=== PATIENT | female | born 1965 | race Caucasian/White ===

== ENCOUNTER 2020-01-09 10:05 | Outpatient (CLI) | payer OTHER, SELFPAY ==
[2020-01-09 17:03] LABS: Hematocrit 39.7 % (37.0-47.0); Hemoglobin 12.7 g/dL (12.0-15.0); Mean Corpuscular Hemoglobin 32.4 pg (26-34); Mean Corpuscular Volume 101.3 fl (80-100); Mean Platelet Volume 9.9 fl (7.4-10.4); Platelet Count Result 255 k/mm3 (150-375); Red Blood Count 3.92 M/mm3 (4.2-5.4); Red Cell Distribution Width 12.9 % (11.5-14.5); White Blood Count 3.5 K/mm3 (4.5-10.0)
[2020-01-09 17:20] LABS: Albumin Level 4.3 g/dL (3.5-5.1)
[2020-01-09 17:27] LABS: Alanine Aminotransferase 21 U/L (4-35); Alkaline Phosphatase 105 U/L (38-126); Aspartate Amino Transferase 28 U/L (14-36); Bilirubin,Total 0.2 mg/dL (0.2-1.3); Blood Urea Nitrogen 12 mg/dL (7-17); Carbon Dioxide 30 mmol/L (22-30); Chloride 103 mmol/L (98-107); Cholesterol 205 mg/dL (0-200); Estimated Glomerular Filt Rate > 60; Glucose 86 mg/dL (65-105); HDL Direct 92 mg/dL; Potassium 4.2 mmol/L (3.4-5.0); Rheumatoid Factor < 12.0 IU/ML (<12); Sodium 140 mmol/L (137-145); Triglycerides 57 mg/dL (<150); Uric Acid 4.9 mg/dL (2.5-7.5)
[2020-01-09 17:30] LABS: Vitamin D 25 Hydroxy 40.2 ng/mL
[2020-01-09 17:34] LABS: LDL Cholesterol Direct 97 mg/dL
[2020-01-09 17:40] LABS: Erythrocyte Sedimentation Rate 11 mm/hr (0-20)
== END 2020-01-09 10:06 | disposition home or self-care (01) ==
PROVIDERS: PCP Internal Medicine; Visit Provider Physician Assistant
DX: M25.50 Pain in unspecified joint (principal)
CPT/HCPCS: 36415; 80053; 80061; 82306; 84443; 84550; 85027; 85652; 86430

== ENCOUNTER 2020-06-11 10:28 | Outpatient (CLI) | payer OTHER, SELFPAY ==
--- NOTE | ~2020-06-11 | MM_ITS ---
EXAMINATION: MM screening [facility] BI w jan HISTORY: Screening mammogram TECHNIQUE: Craniocaudal and mediolateral oblique 3-D tomosynthesis images were obtained and synthetic 2-D images were generated. CAD analysis was submitted and interpreted. COMPARISON: 02/21/2015, 01/18/2013, 10/27/2010 BREAST PARENCHYMAL COMPOSITION: There are scattered areas of fibroglandular density. FINDINGS: RIGHT BREAST: An asymmetry is present in the posterior third of the upper breast best appreciated 5.5 cm from the nipple on the mediolateral oblique view. LEFT BREAST: There is no evidence of suspicious mass, calcification, or architectural distortion to s uggest malignancy. There has been no significant interval change. IMPRESSION: 1. Right breast asymmetry. 2. Additional mammographic views and possible breast ultrasound are recommended. BI-RADS Category 0: Incomplete: Needs additional imaging evaluation. Reviewed, dictated and finalized at location A. IMPRESSION: 1. Right breast asymmetry. 2. Additional mammographic views and possible breast ultrasound are recommended . BI-RADS Category 0: Incomplete: Needs additional imaging evaluation.
--- NOTE | ~2020-06-11 | DEXA_ITS ---
Bone Density Report Name: Debbi Crouch Age: 54 Sex: Female Ethnicity: White Date of : 1965 Indication: osteopenia; monitoring treatment; parental hip fracture; seizure disorder; asthma or emphysema; hysterectomy;postmenopausal Referring Provider: John Villatoro Study: Bone densitometry was performed. Exam Date: June 11, 2020 Accession number: [id number] Bone Density: Region BMD T-score Z-score Classification AP Spine (L1-L4) 0.718 -3.0 -1.8 Osteoporosis Femoral Neck (Left) 0.575 -2.5 -1.3 Osteoporosis Total Hip (Left) 0.773 -1.4 -0.6 Osteopenia Total Hip Bilateral Avg 0.773 -1.4 -0.6 Osteopenia Femoral Neck (Right) 0.600 -2.2 -1.1 Osteopenia Total Hip (Right) 0.772 -1.4 -0.6 Osteopenia World Health Organization criteria for BMD impression classify patients as: Normal (T-score at or above -1.0), Osteopenia (T-score between -1.0 and -2.5), or Osteoporosis (T-score at or below -2.5). 10-year Fracture Risk: FRAX not reported because: Some T-score for Spine Total or Hip Total or Femoral Neck at or below -2.5 Treated for osteoporosis Previous Exams: Region Exam Age BMD T-score BMD Change BMD Change Date g/cm2 vs Baseline vs Previous AP Spine(L1-L4) 06/11/2020 54 0.718 -3.0 -0.258(-26.4%) -0.109(-13.2%) 02/21/2015 49 0.827 -2.0 -0.149(-15.3%) -0.007(-0.9%)# 01/18/2013 47 0.835 -1.9 -0.142(-14.5%) -0.038(-4.3%)# 10/27/2010 45 0.873 -1.6 -0.104(-10.7%) -0.104(-10.6%) 01/06/2007 41 0.977 -0.6 Total Hip(Left) 06/11/2020 54 0.773 -1.4 -0.110(-12.5%) -0.057(-6.9%)* 02/21/2015 49 0.830 -0.9 -0.053(-6.0%)# -0.032(-3.7%)# 01/18/2013 47 0.862 -0.7 -0.021(-2.3%)# 0.024(2.9%)# 10/27/2010 45 0.838 -0.8 -0.045(-5.1%)* -0.045(-5.1%)* 01/06/2007 41 0.883 -0.5 Total Hip(Right) 06/11/2020 54 0.772 -1.4 -0.072(-8.5%)# -0.054(-6.5%)* 02/21/2015 49 0.826 -1.0 -0.018(-2.2%)# -0.035(-4.1%)# 01/18/2013 47 0.861 -0.7 0.017(2.0%)# 0.053(6.5%)# 10/27/2010 45 0.808 -1.1 -0.036(-4.2%)* -0.036(-4.2%)* 01/06/2007 41 0.844 -0.8 *Denotes significance at 95% confidence level, LSC for AP Spine = 0.022 g/cm2, LSC for Total Hip = 0.027 g/cm2 Clinical Information Provided by Patient: Parent has had a hip fracture Is being treated for osteoporosis Has used the following medications: Fosamax (i.e. alendronate), Vitamin D Has the following medical conditions: Any Seizure Disorders, Asthma or Emphysema, Hysterectomy Patient maximum height was 65 Menopause
== END 2020-06-11 10:29 | disposition home or self-care (01) ==
PROVIDERS: PCP Physician Assistant; Visit Provider Physician Assistant
DX: Z12.31 Encounter for screening mammogram for malignant neoplasm of breast (principal); R92.8 Other abnormal and inconclusive findings on diagnostic imaging of breast; M81.0 Age-related osteoporosis without current pathological fracture; M85.852 Other specified disorders of bone density and structure, left thigh; M85.851 Other specified disorders of bone density and structure, right thigh
CPT/HCPCS: 77063; 77067; 77080

== ENCOUNTER 2020-07-04 12:41 | Outpatient (CLI) | payer OTHER, SELFPAY ==
--- NOTE | ~2020-07-04 | MM_ITS ---
EXAMINATION: MM diagnostic [facility] RT w jan HISTORY: Right breast mammographic asymmetry in posterior third of upper breast 5.5 cm from nipple on MLO screening view of 06/11/2020 TECHNIQUE: Additional 3-D tomosynthesis images of right breast were performed and synthetic 2-D image s were generated. CAD analysis was submitted and interpreted. COMPARISON: 06/11/2020 bilateral digital screening mammogram FINDINGS: No reproducible mass or architectural distortion. No malignant calcification, skin thickeni ng or retraction. The area of suggested asymmetry on screening MLO view of 06/11/2020 is not confirmed on these supplemental views. IMPRESSION: 1. No mammographic evidence of malignancy 2. Routine mammographic screening is recommended. BI-RADS Category 1: Negative Reviewed, dictated and finalized at location A.
== END 2020-07-04 12:42 | disposition home or self-care (01) ==
LOC: ANHIMG 12:42
PROVIDERS: PCP Physician Assistant; Visit Provider Physician Assistant
DX: R92.8 Other abnormal and inconclusive findings on diagnostic imaging of breast (principal)
CPT/HCPCS: 77061; 77065; G0279

== ENCOUNTER 2020-07-09 11:00 | Outpatient (CLI) | payer OTHER, SELFPAY ==
--- NOTE | ~2020-07-09 | US_ITS ---
EXAMINATION: US pelvic complete w TV EXAM DATE: 07/09/2020 11:57 INDICATION: Menopausal disorder. Hysterectomy. TECHNIQUE: Pelvic transabdominal and transvaginal sonogram was performed. There are multiple graysca le and Doppler images available for interpretation. There is no prior study for comparison. FINDINGS: Uterus is not identified. The vaginal cuff is unremarkable. There is no free pelvic fluid. Right adnexa: The ovary is not identified. There is no adnexal mass. Left adnexa: The ovary is not identified. There is no adnexal mass. IMPRESSION: Uterus, ovaries not identified. Reviewed, dictated and finalized at location B.
== END 2020-07-09 11:01 | disposition home or self-care (01) ==
PROVIDERS: PCP Physician Assistant
DX: N95.9 Unspecified menopausal and perimenopausal disorder (principal); E28.39 Other primary ovarian failure; R52 Pain, unspecified
CPT/HCPCS: 76830; 76856

== ENCOUNTER 2020-07-15 12:06 | Outpatient (CLI) | payer OTHER, SELFPAY ==
[2020-07-15 12:58] LABS: Add Urine Microscopic? YES; Appearance Urine Clear (Clear); Bilirubin Urine Negative (Negative); Blood Urine 1+ (Negative); Color Urine Yellow (Yellow); Glucose Urine UA Negative (Negative); Ketones Urine Negative (Negative); Leukocyte Esterase Ur Negative LEU/UL (NEGATIVE); Mucus Urine Rare /lpf; Nitrate Urine Negative (Negative); Protein Urine Negative (Negative); Specific Grav Ur 1.013 (1.001-1.035); Squamous Epithelial Cell Urine Rare /hpf (Few); Urobilinogen Urine Negative mg/dL (<2.0); WBC Urine 0-3 /hpf (0-3)
== END 2020-07-15 12:07 | disposition home or self-care (01) ==
PROVIDERS: PCP Physician Assistant; Visit Provider Physician Assistant
DX: R10.9 Unspecified abdominal pain (principal)
CPT/HCPCS: 81001; 87086; 87088

== ENCOUNTER 2021-07-31 20:21 | Emergency (ER) | payer OTHER, SELFPAY ==
--- NOTE | ~2021-07-31 | XR_ITS ---
EXAMINATION: XR chest 2V DATE: 07/31/2021 21:12 INDICATION: Shortness of breath. Sternal chest pain. TECHNIQUE: Frontal and lateral views of the chest were obtained. COMPARISON: Chest 2 views 09/15/2016 FINDINGS: The chest demonstrates clear lungs without pneumonia, pleural effusion, or pneumothorax. Th e heart size is normal. IMPRESSION: 1. No acute cardiopulmonary disease. Reviewed, dictated and finalized at location A.
[2021-07-31 20:36] VITALS: BP 133/81; PULSE 104; RESP 18; TEMP 36.6; O2SAT 99
--- NOTE | 2021-07-31 20:43 | ECG_ITS ---
Measurements Intervals [place] Rate: 99 P: 46 VA: 120 QRS: 49 QRSD: 88 T: 42 QT: 336 QTc: 433 Interpretive Statements SINUS RHYTHM INCOMPLETE RIGHT BUNDLE BRANCH BLOCK BORDERLINE ST ABNORMALITY- ANTEROLAT/INF LEADS BASELINE WANDER- I, III, V3 BORDERLINE ECG Electronically Signed On 08-01-2021 17:37:51 CDT by Rick Mcgarry D.O.
[2021-07-31 21:19] LABS: Basophils Percent Auto 0.3 % (0.2-1.2); Eosinophils Absolute Auto 0.1 K/mm3 (0-0.3); Eosinophils Percent Auto 1.9 % (0-4.4); Hematocrit 37.6 % (37.0-47.0); Hemoglobin 12.9 g/dL (12.0-15.0); Immature Granulocyte Absolute 0.01 K/mm3 (0.00-0.031); Immature Granulocyte Percent A 0.2 % (0-0.5); Lymphocytes Absolute Auto 2.35 K/mm3 (0.9-3.2); Lymphocytes Percent Auto 36.5 % (18.3-44.2); Mean Corpuscular HGB Conc 34.3 g/dl (32-36); Mean Corpuscular Hemoglobin 33.6 pg (26-34); Mean Corpuscular Volume 97.9 fl (80-100); Mean Platelet Volume 9.2 fl (7.4-10.4); Monocytes Absolute Auto 0.7 K/mm3 (0.1-0.6); Monocytes Percent Auto 10.1 % (2.6-8.5); Neutrophils Absolute Auto 3.3 K/mm3 (1.3-6.7); Platelet Count Result 250 k/mm3 (150-375); Red Blood Count 3.84 M/mm3 (4.2-5.4); Red Cell Distribution Width 12.2 % (11.5-14.5); White Blood Count 6.4 K/mm3 (4.5-10.0)
[2021-07-31 21:22] LABS: Add Urine Microscopic? YES; Appearance Urine Clear (Clear); Bilirubin Urine Negative (Negative); Blood Urine 1+ (Negative); Color Urine Colorless (Yellow); Glucose Urine UA Negative (Negative); Ketones Urine Negative (Negative); Leukocyte Esterase Ur Negative LEU/UL (Negative); Nitrate Urine Negative (Negative); Protein Urine Negative (Negative); RBC Urine 0-2 /hpf (0-2); Squamous Epithelial Cell Urine Rare /hpf (Few); Urobilinogen Urine Negative mg/dL (<2.0); WBC Urine 0-3 /hpf
[2021-07-31 21:26] LABS: Specific Grav Ur 1.003 (1.001-1.035)
[2021-07-31 21:37] LABS: Prothrombin Time 13.1 Seconds (11.1-14.7)
[2021-07-31 21:38] LABS: Partial Thromboplastin Time 24.1 SECONDS (22.3-36.8)
[2021-07-31 21:39] LABS: Anion Gap 9 mmol/L (8-16); Blood Urea Nitrogen 13 mg/dL (7-17); Calcium 9.2 mg/dL (8.4-10.2); Carbon Dioxide 28 mmol/L (22-30); Chloride 103 mmol/L (98-107); Estimated CRCL calculation 68 ml/min; Estimated Glomerular Filt Rate > 60; Glucose 98 mg/dL (65-110); Potassium 3.4 mmol/L (3.4-5.0); Sodium 140 mmol/L (137-145)
[2021-07-31 22:08] LABS: D Dimer 0.29 ug/mL (<0.48)
[2021-07-31 22:56] LABS: Troponin I < 0.012 ng/mL (0.000-0.034)
--- NOTE | 2021-07-31 23:37 | PC.NURSE ---
Patient left ED without being seen. Patient seen getting into car. Patient had steady gait and her belongings.
== END 2021-07-31 21:09 | disposition left against medical advice (07) ==
LOC: ANHED 23:48
PROVIDERS: Emergency Provider Emergency Medicine; PCP Physician Assistant
DX: R06.02 Shortness of breath (principal)
CPT/HCPCS: 36415; 71046; 80048; 81001; 84484; 85025; 85380; 85610; 85730; 93005; 99199

== ENCOUNTER 2021-08-04 15:51 | Outpatient (CLI) | payer OTHER, SELFPAY ==
--- NOTE | ~2021-08-04 | CT_ITS ---
EXAMINATION: CTA chest PE protocol DATE: 08/04/2021 16:48 INDICATION: Chest pain and shortness of breath TECHNIQUE: Computed tomography (CT) pulmonary angiogram of the chest was performed with 100 mL Omnipa que-350 intravenous contrast. Additional 3D reconstructions utilizing coronal maximum intensity proje ction (MIP) were performed. Automated exposure control and iterative reconstruction technique were em ployed. The dose-length product was 249.81 mGy-cm. COMPARISON: CT abdomen and pelvis dated 07/02/2015 FINDINGS: Excellent contrast opacification of the pulmonary arteries. There is mild streak artifact from dense contrast in the superior vena cava and right atrium. Mild scattered respiratory motion artifact which does not significantly limit evaluation. No pulmonary embolism. No pneumonia, pulmonary edema, pleur al effusion or pneumothorax. Heart size is normal. Very small pericardial effusion. Thoracic aorta is normal in caliber with no dissection. No pathologically enlarged thoracic lymphadenopathy. Liver, ga llbladder, spleen, bilateral adrenal glands and visualized portion of the pancreas and bilateral kidn eys are normal. No interval change in groundglass opacities in the small bowel mesentery likely seque la of chronic inflammation. Mild upper thoracic levocurvature with mild spondylosis. IMPRESSION: 1. No pulmonary embolus or other acute cardiopulmonary disease. Reviewed, dictated and finalized at location A.
== END 2021-08-04 15:52 | disposition home or self-care (01) ==
LOC: ANHIMG 15:56
PROVIDERS: PCP Internal Medicine; Visit Provider Physician Assistant
DX: I26.99 Other pulmonary embolism without acute cor pulmonale (principal); R06.02 Shortness of breath; R07.89 Other chest pain; M47.814 Spondylosis without myelopathy or radiculopathy, thoracic region
CPT/HCPCS: 71275; Q9967

== ENCOUNTER 2021-09-07 07:21 | Outpatient (CLI) | payer OTHER, SELFPAY ==
--- NOTE | ~2021-09-07 | MM_ITS ---
EXAMINATION: MM screening [facility] BI w jan HISTORY: Screening mammogram TECHNIQUE: Craniocaudal and mediolateral oblique 3-D tomosynthesis images were obtained and synthetic 2-D images were generated. CAD analysis was submitted and interpreted. COMPARISON: 07/04/2020, 06/11/2020, 02/21/2015 BREAST PARENCHYMAL COMPOSITION: There are scattered areas of fibroglandular density. FINDINGS: There is no evidence of suspicious mass, calcification, or architectural distortion to sugg est malignancy in either breast. There has been no suspicious interval change. IMPRESSION: 1. No mammographic evidence of malignancy. 2. Recommend routine screening mammography in one year. BI-RADS Category 1: Negative Reviewed, dictated and finalized at location A. [employer]
== END 2021-09-07 07:22 | disposition home or self-care (01) ==
LOC: ANHIMG 07:23
PROVIDERS: PCP Internal Medicine; Visit Provider Physician Assistant
DX: Z12.31 Encounter for screening mammogram for malignant neoplasm of breast (principal)
CPT/HCPCS: 77063; 77067

== ENCOUNTER 2021-12-02 01:22 | Day surgery (SDC) | payer OTHER, SELFPAY ==
[2021-10-15 12:36] VITALS: BMI 25.8
[2021-11-20 10:30] VITALS: BMI 25.8
--- NOTE | 2021-11-30 13:31 | PM.HPGS ---
History of Present Illness History of Present Illness Consent: Risks, benefits, and alternatives have been discussed and questions answered. Patient agrees to proceed with procedure. Chief complaint: neoplasm screening Narrative: Debbi Crouch is a 56 year old female who was referred for colon cancer screening. Review of Systems Review of Systems: All systems reviewed & are unremarkable except as noted in HPI and below PMFSH Family History Family History Mother Hypertension Family history of Alzheimer's disease Patient's mother is Sibling Hypertension Father Family history of chronic obstructive pulmonary disease Patient's father is Social History Social History Smoking status: Never smoker Second hand tobacco smoke exposure: No Alcohol intake: never Living arrangements: with family Spiritual care concerns: No Meds Home Medications and Allergies Home Medications Medication Instructions Recorded Confirmed Type albuterol sulfate 90 mcg/actuation 1 inhalation INHALATION Q4-6H PRN 06/16/20 11/20/21 History breath activated powder inhaler,sensor fexofenadine 180 mg tablet 180 mg PO DAILY 06/16/20 11/20/21 History fluticasone propionate 230 2 puff INHALATION BID 06/16/20 11/20/21 History mcg-salmeterol 21 mcg/actuation HFA inhaler fluticasone propionate 50 1 spray NASAL DAILY 06/16/20 11/20/21 History mcg/actuation nasal spray,suspension phenobarbital 64.8 mg tablet 64.8 mg PO BID 06/16/20 11/20/21 History phenytoin sodium extended 100 mg 100 mg PO TID 06/16/20 11/20/21 History capsule alendronate 70 mg tablet 70 mg PO WEEKLY #12 tablet 07/15/20 11/20/21 Rx omeprazole 20 mg capsule,delayed 20 mg PO DAILY #90 cap 07/15/20 11/20/21 Rx release budesonide-formoterol HFA 160 2 puff INHALATION Q12H 08/04/21 11/20/21 History mcg-4.5 mcg/actuation aerosol inhaler carbidopa 25 mg-levodopa 100 mg 1 tablet PO DAILY #90 tablet 08/10/21 11/20/21 Rx tablet thyroid 1.75 mg PO DAILY 10/15/21 11/20/21 History Allergies Allergy/AdvReac Type Severity Reaction Status Date / Time clarithromycin Allergy Severe Rash Verified 12/02/21 07:59 azithromycin Allergy Intermediate Rash Verified 12/02/21 07:59 Exam Resp: Auscultation: clear to auscultation bilaterally Cardio: Rate: regular rate Rhythm: regular rhythm GI: GI Palp: Yes Soft to palpation and No Tenderness to palpation present (GI) Assessment and Plan Assessment and plan (1) Colon cancer screening: Code(s): Z12.11 - Encounter for screening for malignant neoplasm of colon Status: Acute Assessment and Plan: Colonoscopy with possible biopsy or polypectomy or cautery or injection of substances.
[2021-12-02 08:01] VITALS: BP 97/61; PULSE 97; RESP 16; TEMP 36.2; O2SAT 99
[2021-12-02] MEDS: LACTATED RINGERS 1,000 ML 150 ML IV CONT (08:24)
--- NOTE | 2021-12-02 08:26 | SUR.PREOP ---
Patient states she noted a diffuse, patchy rash to her torso last evening. Rash remains today. Patient states she had a viral illness 2 weeks ago and tested negative for COVID. Patient states she often develops a rash following a virus. Patient also states she did a home COVID test this morning and the test results were negative again.
--- NOTE | 2021-12-02 08:54 | SUR.PREOP ---
Dr. Gomez notified of patient's rash
--- NOTE | 2021-12-02 08:54 | WPDANESEPPF ---
Anes - Initial Pre Proc Eval Procedure: Operation Date: 12/02/21 09:30 Proposed Procedures p Screening Colonoscopy - Fortunato Mandel MD Date/Time: 12/02/21 08:54 Surgeon: Fortunato Mandel MD Pre Op Diagnosis: neoplasm screening Patient Data Age: 56 Gender: F Height: 1.65 m Weight: 64.4 kg Last Vital Signs Temp 36.2 C L 12/02/21 08:01 Pulse 97 12/02/21 08:01 Resp 16 12/02/21 08:01 BP 97/61 L 12/02/21 08:01 Pulse Ox 99 12/02/21 08:01 Allergies Allergy/AdvReac Type Severity Reaction Status Date / Time clarithromycin Allergy Severe Rash Verified 12/02/21 07:59 azithromycin Allergy Intermediate Rash Verified 12/02/21 07:59 Home Medications Medication Instructions Recorded Confirmed Type albuterol sulfate 90 mcg/actuation 1 inhalation INHALATION Q4-6H PRN 06/16/20 11/20/21 History breath activated powder inhaler,sensor fexofenadine 180 mg tablet 180 mg PO DAILY 06/16/20 11/20/21 History fluticasone propionate 230 2 puff INHALATION BID 06/16/20 11/20/21 History mcg-salmeterol 21 mcg/actuation HFA inhaler fluticasone propionate 50 1 spray NASAL DAILY 06/16/20 11/20/21 History mcg/actuation nasal spray,suspension phenobarbital 64.8 mg tablet 64.8 mg PO BID 06/16/20 11/20/21 History phenytoin sodium extended 100 mg 100 mg PO TID 06/16/20 11/20/21 History capsule alendronate 70 mg tablet 70 mg PO WEEKLY #12 tablet 07/15/20 11/20/21 Rx omeprazole 20 mg capsule,delayed 20 mg PO DAILY #90 cap 07/15/20 11/20/21 Rx release budesonide-formoterol HFA 160 2 puff INHALATION Q12H 08/04/21 11/20/21 History mcg-4.5 mcg/actuation aerosol inhaler carbidopa 25 mg-levodopa 100 mg 1 tablet PO DAILY #90 tablet 08/10/21 11/20/21 Rx tablet thyroid 1.75 mg PO DAILY 10/15/21 11/20/21 History Patient hx anesthesia problems: none Family hx anesthesia problems: none Results Review: All pre-operative results and documents have been reviewed as part of the pre-operative evaluation. [facility] Surgical History Surgical History (Updated 12/02/21 @ 08:58 by Kedar Gomez MD) H/O: hysterectomy History of ankle surgery Family History Family History Mother Hypertension Family history of Alzheimer's disease Patient's mother is Sibling Hypertension Father Family history of chronic obstructive pulmonary disease Patient's father is Social History Social History Smoking status: Never smoker Second hand tobacco smoke exposure: No Alcohol intake: never Living arrangements: with family Spiritual care concerns: No Anes - Eval Final PreProcedure Day of Procedure 12/02/21 08:54 Patient weight: normal Heart: regular rate and rhythm Lungs: clear to auscultation Airway: Mallampati scale class II Neurological: alert and oriented Last oral intake: >/= 8 hours ASA classification: III Emergent: no Anesthetic plan: proceed Anesthesia type and monitoring: general GIVS and standard monitoring Results Review: All pre-operative results and documents have been reviewed as part of the pre-operative evaluation. Informed Consent: The patient's anesthetic plan and its attendant risks and benefits were discussed with the patient/family/POA. Questions were solicited and answers provided to the satisfaction of the patient/family/POA.
[2021-12-02 09:38] VITALS: BP 90/58; PULSE 84; RESP 17; O2SAT 99
[2021-12-02 09:48] VITALS: BP 98/62; PULSE 83; RESP 18; O2SAT 98
[2021-12-02 09:58] VITALS: BP 104/70; PULSE 88; RESP 18; O2SAT 99
== END 2021-12-02 10:14 | disposition home or self-care (01) ==
PROVIDERS: PCP Internal Medicine; Visit Provider Internal Medicine Gastroenterology
PROC: 0DJD8ZZ Inspection of Lower Intestinal Tract, Via Natural or Artificial Opening Endoscopic (ICD-10-PCS; CPT 45378; principal; 2021-12-02 09:30)
DX: Z12.11 Encounter for screening for malignant neoplasm of colon (principal); K57.30 Diverticulosis of large intestine without perforation or abscess without bleeding; K63.5 Polyp of colon; Z79.51 Long term (current) use of inhaled steroids
CPT/HCPCS: 45380; 88305; J2704; J7120

== ENCOUNTER → 2021-12-18 03:38 | Outpatient (CLI) | payer OTHER, SELFPAY ==
[2021-12-18 12:05] LABS: SARS-CoV-2 RNA PCR Negative
== END ==
PROVIDERS: PCP Internal Medicine; Visit Provider Physician Assistant
DX: R68.89 Other general symptoms and signs (principal); Z20.822 Contact with and (suspected) exposure to COVID-19
CPT/HCPCS: C9803; U0003; U0005

== ENCOUNTER 2023-01-19 10:17 | Outpatient (CLI) | payer OTHER, SELFPAY ==
--- NOTE | ~2023-01-19 | MM_ITS ---
EXAMINATION: MM screening [facility] BI w jan HISTORY: Screening mammogram TECHNIQUE: Craniocaudal and mediolateral oblique 3-D tomosynthesis images were obtained and synthetic 2-D images were generated. CAD analysis was submitted and interpreted. COMPARISON: 09/07/2021 bilateral screening mammogram 07/04/2020 diagnostic right mammogram 06/11/2020 bilateral screening mammogram BREAST PARENCHYMAL COMPOSITION: There are scattered areas of fibroglandular density..... FINDINGS: There is no evidence of suspicious mass, calcification, or architectural distortion to sugg est malignancy in either breast. There has been no suspicious interval change. IMPRESSION: 1. No mammographic evidence of malignancy. 2. Recommend routine screening mammography in one year. BI-RADS Category 1: Negative Reviewed, dictated and finalized at location A.
== END 2023-01-19 10:18 | disposition home or self-care (01) ==
LOC: ANHIMG 10:18
PROVIDERS: PCP Physician Assistant; Visit Provider Physician Assistant
DX: Z12.31 Encounter for screening mammogram for malignant neoplasm of breast (principal)
CPT/HCPCS: 77063; 77067

== ENCOUNTER 2023-03-10 10:02 | Outpatient (CLI) | payer OTHER, SELFPAY ==
[2023-03-10 19:22] LABS: Alanine Aminotransferase 22 U/L (6-35); Albumin Level 4.6 g/dL (3.5-5.1); Alkaline Phosphatase 84 U/L (38-126); Anion Gap 4 mmol/L (8-16); Aspartate Amino Transferase 47 U/L (14-36); Bilirubin,Total 0.5 mg/dL (0.2-1.3); Blood Urea Nitrogen 11 mg/dL (7-17); Calcium 9.1 mg/dL (8.4-10.2); Carbon Dioxide 31 mmol/L (22-30); Chloride 102 mmol/L (98-107); Cholesterol 209 mg/dL (0-200); Estimated Glomerular Filt Rate > 60; Glucose 83 mg/dL (65-110); HDL Direct 94 mg/dL; Potassium 4.4 mmol/L (3.4-5.0); Sodium 137 mmol/L (137-145); Triglycerides 95 mg/dL (<150)
[2023-03-10 19:27] LABS: Basophils Percent Auto 0.6 % (0.2-1.2); Eosinophils Absolute Auto 0.1 K/mm3 (0-0.3); Eosinophils Percent Auto 2.3 % (0-4.4); Hematocrit 42.3 % (37.0-47.0); Immature Granulocyte Absolute 0.01 K/mm3 (0.00-0.031); Immature Granulocyte Percent A 0.3 % (0-0.5); Lymphocytes Absolute Auto 1.04 K/mm3 (0.9-3.2); Lymphocytes Percent Auto 30.1 % (18.3-44.2); Mean Corpuscular HGB Conc 33.1 g/dl (32-36); Mean Corpuscular Hemoglobin 32.8 pg (26-34); Mean Corpuscular Volume 99.1 fl (80-100); Mean Platelet Volume 9.6 fl (7.4-10.4); Monocytes Absolute Auto 0.3 K/mm3 (0.1-0.6); Neutrophils Percent Auto 57.7 % (45.5-73.1); Platelet Count Result 267 k/mm3 (150-375); Red Blood Count 4.27 M/mm3 (4.2-5.4); White Blood Count 3.5 K/mm3 (4.5-10.0)
[2023-03-10 19:28] LABS: Free T4 Free Thyroxine 0.93 ng/mL (0.78-2.19)
[2023-03-10 19:34] LABS: LDL Cholesterol Direct 94 mg/dL
[2023-03-10 19:54] LABS: Thyroid Stimulating Hormone < 0.015 uIU/mL (0.465-4.680)
[2023-03-10 20:29] LABS: Folic Acid 16.1 ng/mL (2.76->20)
[2023-03-15 11:22] LABS: DHEA-Sulfate 25 mcg/dL (8-188)
[2023-03-15 19:51] LABS: Progesterone 6.6 ng/mL (***); Triiodothyronine T3 Free 4.7 pg/mL (2.3-4.2)
[2023-03-17 12:16] LABS: Testosterone Free 8.5 pg/mL (0.1-6.4); Testosterone Total 152 ng/dL (2-45)
[2023-03-21 01:27] LABS: Estradiol, Ultrasensitive 27 pg/mL
== END 2023-03-10 10:03 | disposition home or self-care (01) ==
LOC: ANHBWCLAB 10:05
PROVIDERS: PCP Physician Assistant; Visit Provider Obstetrics & Gynecology Gynecology
DX: Z00.00 Encounter for general adult medical examination without abnormal findings (principal); E55.9 Vitamin D deficiency, unspecified; E34.9 Endocrine disorder, unspecified; M81.8 Other osteoporosis without current pathological fracture; N95.1 Menopausal and female climacteric states; G40.89 Other seizures; R53.83 Other fatigue
CPT/HCPCS: 36415; 80053; 80061; 82306; 82607; 82627; 82670; 82746; 84144; 84402; 84403; 84439; 84443; 84481; 85025

== ENCOUNTER 2023-03-31 10:45 | Outpatient (CLI) | payer OTHER, SELFPAY ==
--- NOTE | 2023-04-07 16:03 | WPDHOLTEREM ---
Holter/Event Monitor Holter/Event Monitor Date of procedure: 03/31/23 Holter/Event Procedure: 48 Hr Holter Monitor Indications: Palpitations Conclusion: 1. 48 holter monitor on 03/31/23. 2. Predominant rhythm is sinus rhythm. HR range 59-128 bpm; average HR 89 bpm. 3. There are 30 premature supraventricular complexes. There is 1 episode of atrial tachycardia at 140 bpm lasting 4 beats at 01:38. 4. There is 1 premature ventricular complex. No ventricular tachycardia. 5. No sinoatrial or atrioventricular blocks. No significant pauses greater than 2 seconds. 6. No symptoms available for correlation.
== END 2023-03-31 10:46 | disposition home or self-care (01) ==
LOC: ANHCARD 10:46
PROVIDERS: PCP Physician Assistant; Visit Provider Physician Assistant
DX: R00.2 Palpitations (principal)
CPT/HCPCS: 93225; 93226

== ENCOUNTER 2023-05-07 08:49 | Outpatient (CLI) | payer OTHER, SELFPAY ==
--- NOTE | ~2023-05-07 | DEXA_ITS ---
Bone Density Report Name: HECTOR HOOKER Age: 57 Sex: Female Ethnicity: White Date of : 1965 Indication: osteopenia; monitoring treatment; seizure disorder; asthma or emphysema; hysterectomy; Referring Provider: YOMAIRA LYN Study: Bone densitometry was performed. Exam Date: May 07, 2023 Accession number: [id number] Bone Density: Region BMD T-score Z-score Classification AP Spine(L1-L4) 0.802 -2.2 -0.8 Osteopenia Femoral Neck (Left) 0.603 -2.2 -0.9 Osteopenia Total Hip (Left) 0.777 -1.3 -0.4 Osteopenia Femoral Neck (Right) 0.600 -2.2 -1.0 Osteopenia Total Hip (Right) 0.780 -1.3 -0.4 Osteopenia Total Hip Mean 0.779 -1.3 -0.4 Osteopenia World Health Organization criteria for BMD impression classify patients as: Normal (T-score at or above -1.0), Osteopenia (T-score between -1.0 and -2.5), or Osteoporosis (T-score at or below -2.5). 10-year Fracture Risk: FRAX not reported because: Treated for osteoporosis Previous Exams: Region Exam Age BMD T-score BMD Change BMD Change Date g/cm2 vs Baseline vs Previous Total Hip(Left) 05/07/2023 57 0.777 -1.3 -0.085 (-9.9%) 0.004 (0.6%) 06/11/2020 54 0.773 -1.4 -0.089 (-10.4% -0.057 (-6.9%) 02/21/2015 49 0.830 -0.9 -0.032 (-3.7%) -0.032 (-3.7%) 01/18/2013 47 0.862 -0.7 Total Hip(Right) 05/07/2023 57 0.780 -1.3 -0.081 (-9.4%) 0.008 (1.1%) 06/11/2020 54 0.772 -1.4 -0.089 (-10.4% -0.054 (-6.5%) 02/21/2015 49 0.826 -1.0 -0.035 (-4.1%) -0.035 (-4.1%) 01/18/2013 47 0.861 -0.7 *Denotes significance at 95% confidence level, LSC for Total Hip = 0.027 g/cm2 # Denotes dissimilar scan types or analysis methods Clinical Information Provided by Patient: Is being treated for osteoporosis Has used the following medications: HRT (i.e. estrogen/hormone therapy), Vitamin D Has the following medical conditions: Any Seizure Disorders, Asthma or Emphysema, Hysterectomy Patient maximum height was 65.5 Menopause Age: 48 No regular weight bearing exercise Drinks caffeinated beverages Onset of menses at age 10 Number of children 2 Impression: The patient has low bone mass, based on the Total Spine T-score. No significant bone loss was observed. Discussion: PATIENT UNDER TREATMENT WITH NO SIGNIFICANT BMD LOSS SINCE LAST EXAM. In an untreated patient, BMD typically declines with age. A lack of decline or gain is usually a sign that treatment is efficacious and fracture risk is reduced. It is important
== END 2023-05-07 08:50 | disposition home or self-care (01) ==
PROVIDERS: PCP Physician Assistant; Visit Provider Physician Assistant
DX: M81.0 Age-related osteoporosis without current pathological fracture (principal); M85.88 Other specified disorders of bone density and structure, other site; M85.852 Other specified disorders of bone density and structure, left thigh; M85.851 Other specified disorders of bone density and structure, right thigh
CPT/HCPCS: 77080

== ENCOUNTER 2023-06-27 09:37 | Outpatient (CLI) | payer OTHER, SELFPAY ==
--- NOTE | ~2023-06-27 | CT_ITS ---
EXAMINATION: CT sinus wo con DATE: 06/27/2023 09:55 INDICATION: Deviated nasal septum TECHNIQUE: Computed tomography (CT) of the paranasal sinuses was performed without intravenous contra st. The dose-length product was 297.72 mGy-cm. Automated exposure control and iterative reconstructio n technique were employed. COMPARISON: None FINDINGS: There is mild mucosal thickening of the eighth white sinuses. There is rightward nasal sept al deviation. Ostiomeatal units are patent. No air-fluid levels. No mucoperiosteal reaction. Mastoids are pneumatized. IMPRESSION: 1. Mild ethmoid sinus disease. 2: Rightward nasal septal deviation. Reviewed, dictated and finalized at location B.
== END 2023-06-27 09:38 | disposition home or self-care (01) ==
PROVIDERS: PCP Physician Assistant
DX: J34.2 Deviated nasal septum (principal); R09.82 Postnasal drip; J32.9 Chronic sinusitis, unspecified
CPT/HCPCS: 70486

== ENCOUNTER 2023-10-19 14:50 | Outpatient (CLI) | payer OTHER, SELFPAY ==
--- NOTE | 2023-10-19 15:03 | ECG_ITS ---
Measurements Intervals [facility] Rate: 84 P: 60 CO: 151 QRS: 49 QRSD: 89 T: 38 QT: 334 QTc: 395 Interpretive Statements SINUS RHYTHM INCOMPLETE RIGHT BUNDLE BRANCH BLOCK BORDERLINE ECG COMPARED TO ECG 07/31/2021 20:49:32 NO SIGNIFICANT CHANGES Electronically Signed On 10-19-2023 15:21:08 HOME THERAPY TEACHER by Rick Mcgarry D.O.
== END 2023-10-19 14:51 | disposition home or self-care (01) ==
PROVIDERS: PCP Physician Assistant
DX: Z01.818 Encounter for other preprocedural examination (principal); I45.10 Unspecified right bundle-branch block; R93.1 Abnormal findings on diagnostic imaging of heart and coronary circulation
CPT/HCPCS: 93005

== ENCOUNTER 2024-02-10 12:50 | Outpatient (CLI) | payer OTHER, SELFPAY ==
[2024-02-10 14:06] LABS: Appearance Urine Clear (Clear); Bacteria Urine None Seen /hpf; Bilirubin Urine Negative (Negative); Blood Urine Negative (Negative); Color Urine Dark Yellow (Yellow); Glucose Urine UA Negative (Negative); Ketones Urine Negative (Negative); Leukocyte Esterase Ur Trace LEU/UL (Negative); Nitrate Urine Negative (Negative); Non Pathogenic Casts 0-2; Protein Urine Negative (Negative); Specific Grav Ur 1.011 (1.001-1.035); Squamous Epithelial Cell Urine Occasional /hpf (Few); Urobilinogen Urine 0.2 mg/dL (<2.0); WBC Urine 0-5 /hpf (0-3)
[2024-02-10 14:34] LABS: Add Urine Microscopic? YES
== END 2024-02-10 12:51 | disposition home or self-care (01) ==
LOC: ANHLAB 12:52
PROVIDERS: PCP Physician Assistant; Visit Provider Family Medicine
DX: N39.0 Urinary tract infection, site not specified (principal)
CPT/HCPCS: 81001; 87086

== ENCOUNTER 2024-11-14 14:17 | Outpatient (CLI) | payer OTHER, SELFPAY ==
--- NOTE | ~2024-11-14 | MM_ITS ---
EXAMINATION: MM screening suzanne BI w jan HISTORY: Screening TECHNIQUE: Craniocaudal and mediolateral oblique 3-D tomosynthesis images were obtained and synthetic 2-D images were generated. CAD analysis was submitted and interpreted. COMPARISON: Comparison to multiple prior studies sequentially, with oldest reviewed study dated 05/2015. BREAST PARENCHYMAL COMPOSITION: Not dense: There are scattered areas of fibroglandular density. FINDINGS: There is no evidence of suspicious mass, calcification, or architectural distortion to sugg est malignancy in either breast. There has been no suspicious interval change. IMPRESSION: 1. No mammographic evidence of malignancy. 2. Recommend routine screening mammography in one year. BI-RADS Category 1: Negative Reviewed, dictated and finalized at location A. ER STRAIGHTENER
--- OUTSIDE RECORDS SUMMARY | 2024-11-14 15:13 | XMS_ITS | Continuity of Care Document ---
Author Organization [facility] Address [address] [place] [address] Phone Care Team Providers Care Grades 7 And 8 Teacher Name Role Phone Jennifer Swann Unavailable Unavailabl [...] acetonide inj Inject tndn sheath/lgmnt/gangl cyst Office/outpatient visit,[facility] 2017 Kenalog Triamcinolone acetonide inj Inject tndn sheath/lgmnt/gangl cyst Office/outpatient visit,[facility] 2017 Advance Directives Directive Yes / No Effective Date File Name No Information Encounters Encounter Description Practice Location Reason(s) For Visit Diagnoses Date Provider Providers Copied on Encounter Office/outpat ient visit,[facility], [address], [id number], tel:[phone] Vysr Right thumb (chief complaint) Trigger thumb, right thumb Dinaelizabeth Rodriguez. [address] [facility], [address], [id number], [place]. tel:[phone] Office/outpat ient visit,[facility] [facility], [address], [id number], [place] tel:[phone] Vysr right hand (chief complaint) Trigger thumb, right thumb Abby Ochoa. [address] [facility], [facility] [address], [place], [place], [id number], [place]. tel:[phone] Family History Family Member Type Diagnosis Age At Onset No Information Payers Payer name Insurance type Covered green party ID Glynn reese(s) [facility] [id number] Social History Type Description Quantity Date Captured [...]
--- OUTSIDE RECORDS SUMMARY | 2024-11-14 15:13 | XMS_ITS | Clinical Summary ---
Author Organization [facility] Address [address] [place] [address] Care Team Providers Care Fighting Vehicle Infantryman Name Role Phone Yazan Amaya MD Primary Care Provider [phone] Allergies Active Allergy Reactions Criticality Noted Date Comments Azithromycin Rash Medium 04/30/2018 Clarithromycin Rash Medium 01/01/2013 Medications carbidopa-levod opa (SINEMET) 25-100 mg per tabletIndicatio ns:Parkinsonism Take 1 tablet by mouth nightly 8 Active cholecalciferol (VITAMIN D-3) 2000 unit capsule 2.5 capsules (5,000 Units total) daily 7 Active fexofenadine (CHELSY) 180 mg tablet Take 1 tablet (180 mg total) by mouth daily Active esterified estrogens 1.25 mg tablet 1 tablet (1.25 mg total) Active progesterone (PROMETRIUM) 100 mg capsule Take 1 capsule (100 mg total) by mouth daily Active Amzeeq 4 % foam 3 Active PHENobarbitaL 64.8 mg tabletIndicatio ns:Partial epilepsy with impairment of consciousness, intractable (HCC) Take 1 tablet (64.8 mg total) by mouth nightly 30 tablet 5 4 Active phenytoin ER (DILANTIN) 100 mg ER capsuleIndicati ons:Partial epilepsy with impairment of consciousness, intractable (HCC) Take 2 capsules (200 mg total) by mouth every morning AND 1 capsule (100 mg total) nightly. 270 capsule 3 4 025 Active magnesium gluconate 200 mg tablet Take 1.165 tablets (233 mg total) by mouth daily Active TESTOSTERONE, BULK, MISC Cream 1 08/13/202 4 Active loteprednol (LOTEMAX) 0.5 % ophthalmic suspension INSTILL ONE DROP IN THE RIGHT EYE ONCE DAILY FOR 14 DAYS AND THREE TIMES A DAY IN THE LEFT EYE FOR 7 DAYS, THEN TWICE A DAY BOTH EYES FOR 7 DAYS. 4 Active terconazole (TERAZOL 3) 0.8 % vaginal cream INSERT APPLICATORFUL VAGINALLY AT BEDTIME FOR 3 NIGHTS 4 Active THYROID, BULK, MISC Take 1.5 mg by mouth daily Active fluticasone propionate (FLONASE) 50 mcg/actuation nasal sprayIndication s:Allergic Rhinitis Administer 2 sprays into each nostril daily 1 each 5 4 Active budesonide-form oteroL (SYMBICORT) 160-4.5 mcg/actuation inhaler 1-2 puffs 1-2 times/day & 1 puff as needed. Max 12 puffs/day. Rinse mouth with water after use. Do not swallow. 20.4 g 5 4 Active Active Problems Problem Noted Date Diagnosed Date Partial epilepsy with impair ment of consciousness, intractable 04/11/2019 Severe persistent asthma without complication Encounters Date Type Department Care Team Description 10/31/2024 Telephone [facility] [address] [place] [address] [address] [place] [address] Bert Masters MD 10/04/2024 Telephone [facility] [address] [place] [address] [place] [address] Marzena Cook RN 10/01/2024 Orders Only [facility] [address] [place] [address] [place] [id number] Zuleima Bui MD PhD from Last 3 Months Immunizations Name Administration Dates Next Due Influenza, Trivalent, Cell C ulture-based MDCK, Preservative Free, Antibiotic Free, Intramuscular 07/23/2024 Influenza, Unspecified 08/10/2020 Pfizer SARS-CoV-2 Monovalent Vaccination (12+ Yrs) PURPLE 10/28/2020,10/06/2020 Pneumococcal Conjugate PCV 13 01/17/2017 Pneumococcal Polysaccharide PPV23 01/01/2013 Surgical History Surgery Date Site/Laterality Comments HYSTERECTOMY Total Hysterectomy - (Added by TW Conv) Medical History Medical History Date Comments Allergy status to unspecifie d drugs, medicaments and biological substances status History of seasonal allergie s - (Added by TW Conv) Personal history of other di seases of the respiratory system History of asthma - (Added b y TW Conv) Personal history of other di seases of the digestive system History of gastroesophageal reflux (GERD) - (Added by TW Conv) Personal history of other sp ecified conditions History of seizure - (Added by TW Conv) Family History Medical History Relation Name Comments Hypertension Brother COPD Father Asthma Mother Hypertension Mother Hypertension Sister Relation Name Status Comments Brother Father Mother Sister Social History Tobacco Use Types Packs/Day Years Used Date Smoking Tobacco: Never Smokeless Tobacco: Never Personal Safety Answer Date Recorded Getting School Help Needed Not on file 12/02 Comments No Sex and Gender Information Value Date Recorded Sex Assigned at Not on file 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 Gender Identity Female 06/26/2018 1:15 PM CDT Sexual Orientation Not on file Obstetrics History Last Filed Vital Signs Vital Sign Reading Time Taken Comments Blood Pressure 128/80 07/23/2024 12:44 PM CDT Pulse 79 07/23/2024 12:44 PM CDT Temperature 36.1 ??C (96.9 ??F) 07/23/2024 12:44 PM C DT Respiratory Rate 18 07/23/2024 12:44 PM CDT Oxygen Saturation 99% 07/23/2024 12:44 PM CDT Inhaled Oxygen Concentration - - Weight 68.5 kg (151 lb) 08/04/2024 10:51 AM CDT Height 165.1 cm (5' 5 ) 08/04/2024 10:51 AM CDT Body Mass Index 25.13 08/04/2024 10:51 AM CDT Plan of Treatment Health Maintenance Due Date Last Done Comments Breast Cancer Screening-Mammogram 1965 Colon Cancer Screening-Colonoscopy 1965 Depression Screening 1965 Hepatitis C Screening 1965 DTaP/Tdap/Td Vaccine (1 - Tdap) 1974 Hepatitis B Screening 1981 Regular Well Visit/Exam 18-64 1981 Zoster Vaccine (1 of 2) 2013 Covid-19 Vaccine (3 season) 06/17/202409/2021, 10/06/2020 Pneumococcal vaccine <65 (3 of 3 - PPSV23 or PCV20) 2028 01/17/2017, 01/01/2013 Influenza Vaccine Completed 07/23/2024, 08/10/2020 Insurance [facility] [id number] [facility] [id number] [facility] [id number] Care Teams Fighting Vehicle Infantryman Relationship Specialty Start Date End Date Yazan Amaya MD PCP - General Family Practice 01/31/24
--- OUTSIDE RECORDS SUMMARY | 2024-11-14 15:13 | XMS_ITS | Clinical Summary ---
Author Organization [facility] Address [address] [place] [address] Phone Care Team Providers Care Inventory Control Clerk Name Role Phone Dmitry North Edelmira THAKUR Primary Care Provider [phone] Allergies Active Allergy Reactions Criticality Noted Date Comments Clarithromycin Rash 04/30/2018 Azithromycin Rash 04/30/2018 Medications phenytoin (DILANTIN) 100 MG ER capsule Take 100 mg by mouth 3 times daily. Active PHENobarbital (LUMINAL) 64.8 MG Tablet Take by mouth nightly. Active fluticasone-salm eterol (ADVAIR DISKUS) 100-50 MCG/DOSE AEROSOL POWDER, BREATH ACTIVATED take 2 Puffs by inhalation 2 times daily. Active ALBUTEROL IN take 2 Puffs by inhalation as needed. Active ondansetron (ZOFRAN-ODT) 4 MG TABLET DISPERSIBLE Take 1 Tab by mouth every 4 hours as needed for Nausea - 1st line. 6 Tab 8 Active Additional Information Patient not taking.Reported on 08/28/2020 carbidopa-levodo pa (SINEMET) 25-100 MG Tablet Take 1 Tab by mouth. 8 Active Social History Tobacco Use Types Packs/Day Years Used Date Smoking Tobacco: Never Smokeless Tobacco: Never Alcohol Use Standard Drinks/Week Comments No 0 (1 standard drink = 0.6 oz pur e alcohol) Comments No Sex and Gender Information Value Date Recorded Sex Assigned at Not on file Legal Sex Female 4:34 AM CDT Gender Identity Not on file Sexual Orientation Not on file Last Filed Vital Signs Vital Sign Reading Time Taken Comments Blood Pressure 127/76 08/01/2021 2:45 AM CDT Pulse 70 08/01/2021 2:30 AM CDT Temperature 36.6 ??C (97.9 ??F) 08/01/2021 12:20 AM C DT Respiratory Rate 21 08/01/2021 2:30 AM CDT Oxygen Saturation 100% 08/01/2021 2:30 AM CDT Inhaled Oxygen Concentration - - Weight 68 kg (150 lb) 08/01/2021 12:20 AM CDT Height 166.4 cm (5' 5.5 ) 08/01/2021 12:20 AM CD T Body Mass Index 24.58 08/01/2021 12:20 AM CDT Plan of Treatment Health Maintenance Due Date Last Done Comments Hepatitis C Virus (HCV) Screening 1965 TdaP Immunization 1965 Colonoscopy 2008 Colorectal Cancer Screening 2008 Cologuard 2013 Immunochemical Fecal Occult Blood 2013 Mammogram 2013 Pneumococcal Immunization (5 0+ years) (1 of 1 - PCV) 2013 Zoster Immunization (1 of 2) 2013 Influenza Immunization (#1) 2024 SARS-COV-2 Immunization (2023- season) 2024 09/29/2021, 10/28/2020, 10/06/2020 Respiratory Syncytial Virus (RSV) Immunization (Adult) (1 - 1-dose 75+ series) 2038 Hepatitis B Immunization Aged Out No longer eligible based on patient's age to complete this topic Meningococcal Immunization (ACWY) Aged Out No longer eligible b ased on patient's age to complete this topic Pneumococcal Immunization Combined Aged Out No longer eligible b ased on patient's age to complete this topic Rotavirus Immunization Aged Out No lo nger eligible based on patient's age to complete this topic Insurance Care Teams Inventory Control Clerk Relationship Specialty Start Date End Date Dmitry North DO [address] [place] [address] PCP - General Internal Medicine 08/01/21
--- OUTSIDE RECORDS SUMMARY | 2024-11-14 15:13 | XMS_ITS | Referral Summary ---
Author Organization [facility] Address [address] [place] [address] Care Team Providers Care Land Planner Name Role Phone Yazan Amaya MD Primary Care Provider [phone] Encounters Date Type Department Care Team Description 10/31/2024 Telephone [facility] [address] [place] [address] [place] [address] Bert Masters MD 10/04/2024 Telephone [facility] [address] [facility] 8[address] [place] [address] [place] [address] Marzena Cook RN 10/01/2024 Orders Only [facility] [address] [facility] [address] [place] [address] [place] [address] Zuleima Bui MD PhD from Last 3 Months Allergies Active Allergy Reactions Criticality Noted Date [...] daily Active TESTOSTERONE, BULK, MISC Cream 1 4 Active loteprednol (LOTEMAX) 0.5 % ophthalmic [...] intractable 04/11/2019 Severe persistent asthma without complication Immunizations Name Administration Dates Next Due Influenza, Trivalent, Cell C ulture-based MDCK, Preservative Free, Antibiotic Free, Intramuscular 07/23/2024 Influenza, Unspecified 08/10/2020 Pfizer SARS-CoV-2 Monovalent Vaccination (12+ Yrs) PURPLE 10/28/2020,10/06/2020 Pneumococcal Conjugate PCV 13 01/17/2017 Pneumococcal Polysaccharide PPV23 01/01/2013 Social History Tobacco Use Types Packs/Day Years Used Date Smoking Tobacco: Never Smokeless Tobacco: Never Personal Safety Answer Date Recorded Getting School Help Needed Not on file 12/02 Comments No Sex and Gender Information Value Date Recorded Sex Assigned at Not on file Legal Sex Female 3:41 AM RECEP Gender Identity Female 06/26/2018 1:15 PM CDT Sexual Orientation Not on file Last Filed [...] 08/04/2024 10:51 AM CDT Plan of Treatment Not on file Insurance [facility] [id number] [facility] [id number] Care Teams Land Planner Relationship Specialty Start Date End Date Yazan Amaya MD PCP - General Family Practice 01/31/24
--- OUTSIDE RECORDS SUMMARY | 2024-11-14 15:13 | XMS_ITS | Encounter Summary ---
Author Organization [facility] Address [address] [place] [address] Care Team Providers Care Hot Dimpling Machine Operator Name Role Phone Yazan Amaya MD Primary Care Provider [phone] Encounter Details Date Type Department Care Team (Late st Contact Info) Description 10/31/2024 Telephone [facility] [address] [place] [address] [place] [address] Bert Masters MD [address] [address] Social History Tobacco Use Types Packs/Day Years Used Date Smoking Tobacco: Never Smokeless Tobacco: Never Personal Safety Answer Date Recorded Getting School Help Needed Not on file 12/02 Comments No Sex and Gender Information Value Date Recorded Sex Assigned at Not on file Legal 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 No answer, left voicemail PRESS OPERATOR documented in this encounter Plan of Treatment Not on file documented as of this encounter Visit Diagnoses Not on filedocumented in this encounter Care Teams Hot Dimpling Machine Operator Relationship Specialty Start Date End Date Yazan Amaya MD PCP - General Family Practice 01/31/24 documented as of this encounter
--- OUTSIDE RECORDS SUMMARY | 2024-11-14 15:13 | XMS_ITS | Referral Summary ---
Author Organization [facility] Address [address] [facility] [place] [address] Care Team Providers Care Range Management Specialist Name Role Phone Fortunato Damon MD Unavailable [phone] Vita Beth MD Unavailable Dmitry North DO Primary Care Provider [phone] Source Comments [facility],non-owned Affiliates and Associated Physician Practices is amultiple site organization consisting of ambulatory clinics and hospital sitesin [place], [place], [place] and [place]. This disclosure is being madepursuant to the Care Everywhere program and may not contain all information available regarding this patient. Last updated 18.[facility] Allergies Active Allergy Reactions Criticality Noted Date Comments Clarithromycin Rash Medium 01/01/2013 Azithromycin Urticaria 07/17/2012 Medications * Be aware that medications may not be up to date on this document. Alwaysverify current medications with the patient. Medication Sig Dispensed Refills Start Date End Date Status Phenytoin (DILANTIN PO) Take 300 mg by mouth once daily Active carbidopa-levodopa (SINEMET) 25-100 MG tablet Take 1 (one) tablet by mouth at bedtime Active ALBUTEROL IN Inhale 1 Dose by mouth as needed Active estradiol (VIVELLE-DOT) 0.025 MG/24HR patch Apply 1 (one) patch to skin every 3 days Active fexofenadine (Alena) 180 MG tablet Take 1 (one) tablet by mouth once daily Active fluticasone propionate (Flonase) 50 MCG/ACT nasal spray Stirling 1 (one) spray into each nostril as directed Active Magnesium 200 MG TABS Take 233 mg by mouth once daily Active tiZANidine (Zanaflex) 4 MG tablet Take 1 (one) tablet by mouth as needed 01/19/2023 Active Progesterone 100 MG capsule Take 1 (one) capsule by mouth once daily Active THYROID PO Take 150 mg by mouth once daily Active budesonide-formoterol (Symbicort) 160-4.5 MCG/ACT inhaler Inhale 2 (two) puffs by mouth 2 times daily 07/25/2023 Active Amzeeq 4 % FOAM Apply 1 Dose to affected area as directed 07/29/2023 Active PHENobarbital 64.8 MG tablet Take 1 (one) tablet by mouth at bedtime 12/04/2023 Active Active Problems Problem Noted Date Diagnosed Date Degeneration of cervical intervertebral disc 11/2011 Cervical spondylosis without myelopathy 07/18/20 12 Immunizations Name Administration Dates Next Due INFLUENZA VACCINE 08/10/2020 PNEUMOCOCCAL PPSV23 01/01/2013 Pneumococcal Pcv13 Conj 01/17/2017 Social History Tobacco Use Types Packs/Day Years Used Date Smoking Tobacco: Never Smokeless Tobacco: Never Tobacco Cessation:Counseling Given: Not Answered Alcohol Use Standard Drinks/Week Comments No 0 (1 standard drink = 0.6 oz pur e alcohol) Sex and Gender Information Value Date Recorded Sex Assigned at Not on file Gender Identity Not on file Sexual Orientation Not on file Last Filed Vital Signs Vital Sign Reading Time Taken Comments Blood Pressure 131/79 06/16/2021 8:39 AM CDT Pulse 89 06/16/2021 8:39 AM CDT Temperature - - Respiratory Rate 18 06/13/2014 9:27 AM CDT Oxygen Saturation - - Inhaled Oxygen Concentration - - Weight 67.6 kg (149 lb) 12/08/2023 2:22 PM FELT HAT STEAMER Height 166.4 cm (5' 5.5 ) 12/08/2023 2:22 PM FELT HAT STEAMER Body Mass Index 24.42 12/08/2023 2:22 PM FELT HAT STEAMER Plan of Treatment Not on file Care Teams Range Management Specialist Relationship Specialty Start Date End Date Dmitry North DO [address] [place] [id number] PCP - General Internal Medicine 05/18/23 Fortunato Damon MD Neurological Surgery 07/17/12 Vita Beth MD [address] [place] [address] Family Medicine 07/17/12
--- OUTSIDE RECORDS SUMMARY | 2024-11-14 15:13 | XMS_ITS | Patient Health Summary ---
Author Organization [facility] Address [address] [place] [address] Care Team Providers Care Car Sealer Name Role Phone Fortunato Damon MD Unavailable [phone] Vita Beth MD Unavailable Dmitry North DO Primary Care Provider [phone] [facility],non-owned Affiliates and Associated Physician Practices is amultiple site organization consisting of ambulatory clinics and hospital sitesin [place], [place], [place] and [place]. This disclosure is being madepursuant to the Care Everywhere program and may not contain all information available regarding this patient. Last updated 18.[facility] Allergies * Clarithromycin(Rash) -Medium Criticality * Azithromycin(Urticaria) Medications * Be aware that medications may not be up to date on this document. Alwaysverify current medications with the patient. * Phenytoin (DILANTIN PO) Take 300 mg by mouth once daily * carbidopa-levodopa (SINEMET) 25-100 MG tablet Take 1 (one) tablet by mouth at bedtime * ALBUTEROL IN Inhale 1 Dose by mouth as needed * estradiol (VIVELLE-DOT) 0.025 MG/24HR patch Apply 1 (one) patch to skin every 3 days * fexofenadine (Alena) 180 MG tablet Take 1 (one) tablet by mouth once daily * fluticasone propionate (Flonase) 50 MCG/ACT nasal spray Elizabeth 1 (one) spray into each nostril as directed * Magnesium 200 MG TABS Take 233 mg by mouth once daily * tiZANidine (Zanaflex) 4 MG tablet(Started 01/19/2023) Take 1 (one) tablet by mouth as needed * Progesterone 100 MG capsule Take 1 (one) capsule by mouth once daily * THYROID PO Take 150 mg by mouth once daily * budesonide-formoterol (Symbicort) 160-4.5 MCG/ACT inhaler(Started 07/25/2023) Inhale 2 (two) puffs by mouth 2 times daily * Amzeeq 4 % FOAM(Started 07/29/2023) Apply 1 Dose to affected area as directed * PHENobarbital 64.8 MG tablet(Started 12/04/2023) Take 1 (one) tablet by mouth at bedtime Active Problems Problem Noted Date Diagnosed Date Degeneration of cervical intervertebral disc 11/2011 Cervical spondylosis without myelopathy 07/18/20 12 Immunizations * INFLUENZA VACCINE(Given 08/10/2020) * PNEUMOCOCCAL PPSV23(Given 01/01/2013) * Pneumococcal Pcv13 Conj(Given 01/17/2017) Social History Tobacco Use Types Packs/Day Years [...] 67.6 kg (149 lb) 12/08/2023 2:22 PM RESERVATIONS AND TICKETING AGENT Height 166.4 cm (5' 5.5 ) 12/08/2023 2:22 PM RESERVATIONS AND TICKETING AGENT Body Mass Index 24.42 12/08/2023 2:22 PM RESERVATIONS AND TICKETING AGENT Procedures * IN NASAL ENDOSCOPY,DX(Performed 11/10/2023) Performed for Recurrent sinusitis, Deviated nasal septum, Nasal turbinate hypertrophy * PATHOLOGY TISSUE(Performed 11/04/2023) Performed for Illness, unspecified * PROC ENDOSCOPY-LARYNX(Performed 05/18/2023) Performed for Deviated nasal septum, Postnasal drip * IN LARYNGOSCOPY,FLEX FIBER,DIAGNOSTIC(Performed 06/16/2021) Performed for Postnasal drip, Vocal cord dysfunction, Deviated nasal septum, Sleep-disordered breathing * PHENYTOIN LEVEL TOTAL(Performed 07/27/2012) Results * IN NASAL ENDOSCOPY,DX (11/10/2023 2:57 PM RESERVATIONS AND TICKETING AGENT) Narrative Felix Rodriguez MD - 11/10/2023 2:57 PM RESERVATIONS AND TICKETING AGENT Felix Rodriguez MD ? 11/10/2023 ??3:39 PM Procedure Note Endoscopy Type: ??Nasal Endoscopy without debridement Anesthesia: Lidocaine 2% and Dany-Synephrine 1/2% Procedure Details: After topical anesthesia and decongestion, the patient was placed in the sitting position. ??The zero degree telescope was passed along the left nasal floor to the nasopharynx. ??It was then passed into the region of the middlemeatus, middle turbinate, and the sphenoethmoid region. An identical procedure was performed on the right side. ??The following findings were noted as stated below: Findings: Splints removed bilaterally today. ??Septum straight in the midline. ??Inferior turbinates are small and lateralized. ?? Middle meatal regions open middle turbinates are medialized. ?? Excellent ventilation of the anterior ethmoid with easy visualization into the maxillary sinus is healthy mucosa throughout. Condition: Stable. ??Patient tolerated procedure well. Complications: None I was present for the entirety of the procedure. Felix Rodriguez MD PROCEDURE/MINOR SURG ICAL ORDERABLES * PATHOLOGY TISSUE (11/04/2023 6:30 AM RESERVATIONS AND TICKETING AGENT) Case Report Surgical Pathology Report ? Case: [id number] ? Authorizing Provider: ??Felix Rodriguez MD ?Collected: ? 11/04/2023 06:30 AM ? Ordering Location: ? [facility] ? Received: ?11/04/2023 12:11 PM ? Pathologist: ? Pablo Rubin MD ? Specimen: ?Sinus, Right and Left sinus contents ? 11/08/2023 12:37 PM [facility] Final Diagnosis Sinus contents, right and left, excision (A): - Chronic sinusitis 11/08/2023 12:37 PM [facility] Microscopic Description and Comment Microscopic examination substantiates the final diagnosis. 11/08/2023 12:37 PM [facility] Clinical History This is a 58-year-old female with history of chronic sinusitis. Operative procedure: functional endoscopic sinus surgery. 11/08/2023 12:37 PM [facility] Gross Description The requisition and specimen(s) are identified with the patient's name, Debbi Crouch. Received in formalin, specimen A , is a 2.5 x 2.0 x 0.5 cm aggregate of soft red-mauricio tissue admixed with hemorrhagic material. There is no conspicuous mucoid component. A employee representative sampling is submitted in cassette A1. GW 11/08/2023 12:37 PM [facility] Pathologist Location at [facility] 11/08/2023 12:37 PM [facility] Disclaimer The performance characteristics of all immunohistochemical and indirect immunofluorescence stains (if any) cited in this report were determined by the Histopathology Laboratory of [facility]. Some of these tests were developed by our own laboratory and have not been cleared or approved by the US Food and Drug Administration. The FDA does not require this test to go through premarket FDA review. These tests are used for clinical purposes. They should not be regarded as investigational or for research. This laboratory is certified under the Clinical Laboratory Improvement Amendments (CLIA) as qualified to perform high complexity clinical laboratory testing. This case has been personally reviewed and interpreted by the attending (teaching) pathologist. 11/08/2023 12:37 PM RESERVATIONS AND TICKETING AGENT [facility] Embedded Images 11/08/2023 12:37 PM RESERVATIONS AND TICKETING AGENT [facility] Pathology/Cytolo gy SINUS / Unknown 11/04/2023 6:30 AM RESERVATIONS AND TICKETING AGENT 11/04/2023 12:11 PM RESERVATIONS AND TICKETING AGENT Felix Rodriguez MD LAB - PATHOLOGY/CYTO LOGY ORDERABLES Performing Organization Address City/State/[facility] Co de Phone Number [facility] [address] [phone] * PROC ENDOSCOPY-LARYNX (05/18/2023 4:28 PM CDT) Narrative Felix Rodriguez MD - 05/18/2023 4:28 PM CDT Felix Rodriguez MD ? 05/18/2023 ??7:39 PM Procedure Note Endoscopy Type: ??Laryngoscopy without stroboscopy [id number] Endoscope: Flexible 4mm Scope Anesthesia: Lidocaine 2% and Neosynephrine 1/2% (nasal) Procedure Details: The patient was sitting upright in a chair with the head in a slightly anterior sniffing position. The topical anesthesia was administered and then adequate time was allowed ??for an anesthetic effect. The endoscope was passed thru the nasal cavity with the tongue retracted anteriorly. The tip of the endoscope was positioned in the oropharynx which allowed a complete view of the base of tongue, vallecula, pyriform recesses, epiglottis, bilateral true and false vocal folds, the interarytenoid and post cricoid region, and the immediate subglottis. Findings: Severe right septal deviation causing 100 obstruction of the right nasal cavity. ??Large septal spur posteriorly on the left side. ??Nasopharynx is open. ??Mass of the lingual tonsil at the base of tongue completely obliterating the vallecula. ??Vocal cords are normal piriform sinuses are normal no retained secretions in the pharynx or larynx. Condition: Stable. ??Patient tolerated procedure well. Complications: None I was present for the entirety of the procedure. Felix Rodriguez MD PROCEDURE/MINOR SURG ICAL ORDERABLES * IN LARYNGOSCOPY,FLEX FIBER,DIAGNOSTIC (06/16/2021 9:15 AM CDT) Narrative Felix Rodriguez MD - 06/16/2021 9:15 AM CDT Carols Gore MD ? 06/16/2021 10:02 AM Procedure Note Endoscopy Type: ??Laryngoscopy without stroboscopy Endoscope: Flexible 4mm Scope Anesthesia: Lidocaine 2% and Neosynephrine 1/2% (nasal) Procedure Details: The patient was sitting upright with the head in a slightly anterior sniffing position. The topical anesthesia was administered and then adequate time was allowed ??for an anesthetic effect. The endoscope was passed through the nasal cavity with the tongue retracted anteriorly. The tip of the endoscope was positioned in the oropharynx which allowed a complete view of the base of tongue, vallecula, pyriform recesses, epiglottis, bilateral true and false vocal folds, the interarytenoid and post cricoid region, and the immediate subglottis. Findings: -Nasal cavity: no masses or lesions, erythematous mucosa, no significant turbinate hypertrophy, significant right septal deviation, obstructing view of R middle meatus; no polyps or purulence seen -Nasopharynx: no masses or lesions, normal mucosa -Oropharynx: lingual tonsillar hypertrophy with some tongue base obstruction; no masses or lesions, normal mucosa -Hypopharynx/Larynx: no masses or lesions, normal mucosa -Cord mobility: full and appropriate -Airway patency: widely patent Condition: Stable. ??Patient tolerated procedure well. Complications: None Dr Rodriguez was present for the entirety of the procedure. Silver Gore MD Otolaryngology Resident 06/16/2021 Felix Rodriguez MD PROCEDURE/MINOR SURG ICAL ORDERABLES * (ABNORMAL) PHENYTOIN LEVEL TOTAL (07/27/2012 1:04 PM CDT) Phenytoin 7.9(L) 10.0 - 20.0 mg/L [facility] ([facility]) Comment: Test Performed at: [facility] [address] [place], [place] ??[address] GOVIND EPPS DO,MPH Venous blood specimen (specimen) 07/27/2012 1:04 PM CDT 07/27/2012 1:04 PM CDT Maikel Bhagat MD LAB - CHEMISTRY ORD ERABLES [facility] ([facility]) Care Teams Car Sealer Relationship Specialty Start Date End Date Dmitry North DO [address] [place] [address] PCP - General Internal Medicine 05/18/23 Fortunato Damon MD Neurological Surgery 07/17/12 Vita Beth MD [address] [place] [address] Family Medicine 07/17/12
--- OUTSIDE RECORDS SUMMARY | 2024-11-14 15:13 | XMS_ITS | Encounter Summary ---
Author Organization [facility] Address [address] [place] [address] Care Team Providers Care Electronics Manufacturer Name Role Phone Fortunato Damon MD Unavailable [phone] Vita Beth MD Unavailable Dmitry North DO Primary Care Provider [phone] Encounter Details Date Type Department Care Team (Late st Contact Info) Description 11/04/2023 Lab Requisition [facility] - Pathology Lab [address] [place] [address] Felix Rodriguez MD [address] [place] [address] Illness, unspecified Social History Tobacco Use Types Packs/Day Years Used Date Smoking Tobacco: Never Smokeless Tobacco: Never Alcohol Use Standard Drinks/Week Comments No 0 (1 standard drink = 0.6 oz pur e alcohol) Sex and Gender Information Value Date Recorded Sex Assigned at Not on file Gender Identity Not on file Sexual Orientation Not on file documented as of this encounter Plan of Treatment Not on file documented as of this encounter Procedures Procedure Name Priority Date/Time Associated Diagnosis Comments PATHOLOGY TISSUE Routine 11/04/2023 6:30 AM MOTOR VEHICLE ASSEMBLY SUPERVISOR Illness, unspecified documented in this encounter Results * PATHOLOGY TISSUE (11/04/2023 6:30 AM MOTOR VEHICLE ASSEMBLY SUPERVISOR) Case Report Surgical Pathology Report ? Case: [id number] ? Authorizing Provider: ??Felix Rodriguez MD ?Collected: ? 11/04/2023 06:30 AM ? Ordering Location: ? [facility] ? Received: ?11/04/2023 12:11 PM ? Pathologist: ? Pablo Rubin MD ? Specimen: ?Sinus, Right and Left sinus contents ? 11/08/2023 12:37 PM [facility] Final Diagnosis Sinus contents, right and left, excision (A): - Chronic sinusitis 11/08/2023 12:37 PM [facility] Microscopic Description and Comment Microscopic examination substantiates the final diagnosis. 11/08/2023 12:37 PM [facility] Clinical History This is a 58-year-old female with history of chronic sinusitis. Operative procedure: functional endoscopic sinus surgery. 11/08/2023 12:37 PM [facility] Gross Description The requisition and specimen(s) are identified with the patient's name, Debbi Crouch. Received in formalin, specimen A , is a 2.5 x 2.0 x 0.5 cm aggregate of soft red-mauricio tissue admixed with hemorrhagic material. There is no conspicuous mucoid component. A metals sales representative sampling is submitted in cassette A1. GW 11/08/2023 12:37 PM [facility] Pathologist Location at [facility] 11/08/2023 12:37 PM [facility] Disclaimer The performance characteristics of all immunohistochemical and indirect immunofluorescence stains (if any) cited in this report were determined by the Histopathology Laboratory of [facility]. Some of these tests were developed by [...] the attending (teaching) pathologist. 11/08/2023 12:37 PM [facility] Embedded Images 11/08/2023 12:37 PM [facility] Pathology/Cytolo gy SINUS / Unknown 11/04/2023 6:30 AM MOTOR VEHICLE ASSEMBLY SUPERVISOR 11/04/2023 12:11 PM MOTOR VEHICLE ASSEMBLY SUPERVISOR Felix Rodriguez MD LAB - PATHOLOGY/CYTO LOGY ORDERABLES Performing Organization Address [facility]/State/[facility] Co de Phone Number [facility] [address] [phone] documented in this encounter Visit Diagnoses Diagnosis Illness, unspecified documented in this encounter Care Teams Electronics Manufacturer Relationship Specialty Start Date End Date Dmitry North DO [address] [facility] [address] [place] [address] PCP - General Internal Medicine 05/18/23 Fortunato Damon MD Neurological Surgery 07/17/12 Vita Beth MD [address] [place] [address] Family Medicine 07/17/12 documented as of this encounter
--- OUTSIDE RECORDS SUMMARY | 2024-11-14 15:13 | XMS_ITS | Encounter Summary ---
Author Organization [facility] Address [address] [place] [address] Phone Care Team Providers Care Validation Architect Name Role Phone Nigel Cunningham MD Primary Care Provider [phone] John Villatoro Primary Care Provider Yazan Amaya MD Primary Care Provider [phone] Encounter Details Date Type Department Care Team (Latest Contact Info) Description 07/20/2017 Orders Only [facility] CONVERSION Scanning, Provider Social History Tobacco Use Types Packs/Day Years Used Date Smoking Tobacco: Never Comments Unknown Sex and Gender Information Value Date Recorded Sex Assigned at Not on file Legal Sex Female 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 FINANCE MANAGER Gender Identity Female 06/26/2018 1:15 PM CDT Sexual Orientation Not on file documented as of this encounter Plan of Treatment Not on file documented as of this encounter Procedures Procedure Name Priority Date/Time Associated Diagnosis Comments PULMONARY FUNCTION TEST (PFT) 07/20/2017 12:11 PM CDT documented in this encounter Results * PULMONARY FUNCTION TEST (PFT) (07/20/2017 12:11 PM CDT) Anatomical Region Laterality Modality PFT us Provider Scanning PFT ORDERABLES Final Result documented in this encounter Visit Diagnoses Not on filedocumented in this encounter Care Teams Validation Architect Relationship Specialty Start Date End Date Nigel Cunningham MD PCP - General 03/07/17 09/01/21 John Villatoro PA [address] [place], [place] [id number] PCP - General Physician Skin Carver 09/02/21 01/30/24 Yazan Amaya MD [address] [facility] [address] [place] [address] PCP - General Family Practice 01/31/24 documented as of this encounter
--- OUTSIDE RECORDS SUMMARY | 2024-11-14 15:14 | XMS_ITS | Clinical Summary ---
Author Organization [facility] Address [address] [place] [address] Care Team Providers Care Cd Reactor Operator Name Role Phone Fortunato Damon MD Unavailable [phone] Vita Beth MD Unavailable Dmitry North DO Primary Care Provider [phone] Source Comments [facility],non-owned Affiliates and Associated Physician Practices is amultiple site organization consisting of ambulatory clinics and hospital sitesin [place], [place], [place] and [place]. This disclosure is being madepursuant to the Care Everywhere program and may not contain all information available regarding this patient. Last updated 18.[facility] Allergies Active Allergy Reactions Criticality Noted Date [...] fluticasone propionate (Flonase) 50 MCG/ACT nasal spray [place] 1 (one) spray into each nostril as [...] 67.6 kg (149 lb) 12/08/2023 2:22 PM MEDICAL FEE CLERK Height 166.4 cm (5' 5.5 ) 12/08/2023 2:22 PM MEDICAL FEE CLERK Body Mass Index 24.42 12/08/2023 2:22 PM MEDICAL FEE CLERK Plan of Treatment Health Maintenance Due Date Last Done Comments COLOGUARD (AGES 45-75) - COL ON CA SCREENING 1963 COLON MONITORING 1963 COLONOSCOPY - COLON CA SCREENING 1963 CT COLONOGRAPHY - COLON CA SCREENING 1963 Colorectal Cancer Screening 1963 FIT - COLON CA SCREENING 1963 FLEX SIG - COLON CA SCREENING 1963 LIPID TESTING 1963 MAMMOGRAM 1963 PAP SMEAR 1963 HIV SCREENING 1978 HEPATITIS C SCREENING 07/11/1981 DTAP/TDAP/TD VACCINES (1 - Tdap) 1982 ZOSTER VACCINE (1 of 2) 2013 PNEUMOCOCCAL VACCINE 50+ (3 of 3 - PCV20 or PCV21) 01/17/2022 01/17/2017, 01/01/2013 COVID-19 VACCINE (3 - 2023-2 5 season) 2024 10/28/2020, 10/06/2020 INFLUENZA VACCINE (#1) 2024 08/10/2020 DEPRESSION SCREENING 10/17/2024 Respiratory Syncytial Virus (RSV) Vaccine Pt: or over 60 yrs (1 - 1-dose 75+ series) 2038 PNEUMOCOCCAL VACCINE Aged Out 01/17/2017, 01/01/2013 No longer eligible based on patient's age to complete this topic HEPATITIS B VACCINE Aged Out No longe r eligible based on patient's age to complete this topic HIB VACCINE Aged Out No longer eligi ble based on patient's age to complete this topic HPV VACCINE Aged Out No longer eligi ble based on patient's age to complete this topic MENINGOCOCCAL (Group B) VACCINE Aged Out No longer eligible b ased on patient's age to complete this topic MENINGOCOCCAL VACCINE Aged Out No anju kimberlee eligible based on patient's age to complete this topic Care Teams Cd Reactor Operator Relationship Specialty Start Date End Date Dmitry North DO [address] [place] [address] PCP - General Internal Medicine 05/18/23 Fortunato Damon MD Neurological Surgery 07/17/12 Vita Beth MD [address] [place] [address] Family Medicine 07/17/12
== END 2024-11-14 14:18 | disposition home or self-care (01) ==
PROVIDERS: PCP Family Medicine; Visit Provider Family Medicine
DX: Z12.31 Encounter for screening mammogram for malignant neoplasm of breast (principal)
CPT/HCPCS: 77063; 77067

== ENCOUNTER 2024-11-27 00:37 | Day surgery (SDC) | payer OTHER, SELFPAY ==
[2024-11-22 10:11] VITALS: BMI 24.4
--- NOTE | 2024-11-22 10:17 | PC.NURSE ---
Report to the Outpatient Waiting Room, entrance under the green pavilion located off [facility], at time _130pm_ on date _[phone]_. Planned Procedure Time: _230pm_.? Time changes happen often and if your time is changed the preop area will call you the afternoon before. - You and your visitor will be asked to self-screen and do not enter if you have any COVID symptoms. Please call surgeon if you need to reschedule. - A mask is optional within the hospital at this time. OK for breakfast and a light early lunch. - No food or drink after 1230pm until after surgery and no smoking, or chewing tobacco (or any form of nicotine). No chewing gum, candy or mints. Take only the following medications with a SIP of water on the morning of surgery: ___All medications OK DO NOT STOP ANY OF YOUR OTHER PRESCRIPTION MEDICATIONS PRIOR TO SURGERY EXCEPT THE FOLLOWING Hold all vitamins and supplements for 3 days per anesthesiologist. Medications to discontinue per physician ____None Please no make-up, nail norwegian, hairspray, perfume, deodorant, or body powder the day of surgery.? No jewelry (including any body piercings) or valuables the day of surgery, leave them at home.? Please take a shower or bath the night before, or the morning of, surgery with an antibacterial soap.? Wear comfortable, loose fitting clothing.? - Jewelry must be removed prior to entering the operating room.? Rings and piercings that are not removed may be cut off. - The hospital will not accept responsibility for valuables.? - Please leave all valuables, including medications, at home the day of surgery. Ok to drive home but even better if you have a regional owner operator truck driver. Follow any additional instructions given to you from your surgeon. Telephone instructions given to __Debra__and asked if any additional questions and then verbalized understanding. Patient advised to call surgeon office or pre surgery nurse liaison [phone] if any additional questions.
--- NOTE | ~2024-11-27 | XR_ITS ---
INTRAOPERATIVE FLUOROSCOPY: CLINICAL HISTORY: 59 years old Female; CERVICAL BRANCH BLOCK PROCEDURE COMMENTS: Limited intraoperative fluoroscopy of the cervical spine was performed. CUMULATIVE DOSE: 8.17 mGy FLUOROSCOPY TIME: 64 seconds FINDINGS/IMPRESSION: Please refer to operative note for further details. Reviewed, dictated and finalized at location A. INE OPERATOR TRANSPLANTER
--- OUTSIDE RECORDS SUMMARY | 2024-11-27 00:41 | XMS_ITS | Encounter Summary ---
Author Organization [facility] Healthcare Address [address] [place] [address] Care Team Providers Care Beet End Supervisor Name Role Phone Yazan mAaya MD Primary Care Provider [phone] Encounter Details Date Type Department Care Team (Late st Contact Info) Description 10/31/2024 Telephone [facility] [address] [place] [address] [place] [address] Bert Masters MD [address] [address] Social History Tobacco Use Types Packs/Day Years Used Date Smoking Tobacco: Never Smokeless Tobacco: Never Personal Safety Answer Date Recorded Getting School Help Needed Not on file 12/02 Comments No Sex and Gender Information Value Date Recorded Sex Assigned at Not on file 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 No answer, left voicemail EL TRUCK MECHANIC documented in this encounter Plan of Treatment Not on file documented as of this encounter Visit Diagnoses Not on filedocumented in this encounter Care Teams Beet End Supervisor Relationship Specialty Start Date End Date Yazan Amaya MD PCP - General Family Practice 01/31/24 documented as of this encounter
--- OUTSIDE RECORDS SUMMARY | 2024-11-27 00:41 | XMS_ITS | Encounter Summary ---
Author Organization [facility] Address [address] [place] [address] Care Team Providers Care Rn Child Name Role Phone Fortunato Damon MD Unavailable [phone] Vita Beth MD Unavailable Dmitry North DO Primary Care Provider [phone] Encounter Details Date Type Department Care Team (Late st Contact Info) Description 11/04/2023 Lab Requisition [facility] - Pathology Lab [address] [place] [phone] Felix Rodriguez MD [address] [place] [address] Illness, unspecified Social History Tobacco Use Types [...] Comments PATHOLOGY TISSUE Routine 11/04/2023 6:30 AM MAINTENANCE CONTROLLER Illness, unspecified documented in this encounter Results * PATHOLOGY TISSUE (11/04/2023 6:30 AM MAINTENANCE CONTROLLER) Case Report Surgical Pathology Report Case: [id number] Authorizing Provider: Felix Rodriguez MD Collected: 11/04/2023 06:30 AM Ordering Location: [facility] Pathology Lab Received: 11/04/2023 12:11 PM Pathologist: Pablo Rubin MD Specimen: Sinus, Right and Left sinus contents 11/08/2023 12:37 PM [facility] Final Diagnosis Sinus contents, right and left, excision (A): - Chronic sinusitis 11/08/2023 12:37 PM [facility] PATHOLOGY LAB Microscopic Description and Comment Microscopic examination substantiates the final diagnosis. 11/08/2023 12:37 PM [facility] Clinical History This is a 58-year-old female with history of chronic sinusitis. Operative procedure: functional endoscopic sinus surgery. 11/08/2023 12:37 PM [facility] Gross Description The requisition and specimen(s) are identified with the patient's name, Debbi Crouch. Received in formalin, specimen A , is a 2.5 x 2.0 x 0.5 cm aggregate of soft red-mauricio tissue admixed with hemorrhagic material. There is no conspicuous mucoid component. A u.s. representative sampling is submitted in cassette A1. GW 11/08/2023 12:37 PM [facility] Pathologist Location at [facility] 11/08/2023 12:37 PM [facility] PATHOLOGY LAB Disclaimer The performance characteristics of all immunohistochemical and indirect immunofluorescence stains (if any) cited in this report were determined by the Histopathology Laboratory of [facility]. Some of these tests were developed by [...] the attending (teaching) pathologist. 11/08/2023 12:37 PM [facility] Embedded Images 11/08/2023 12:37 PM [facility] PATHOLOG[facility] LAB Pathology/Cytolo gy SINUS / Unknown 11/04/2023 6:30 AM MAINTENANCE CONTROLLER 11/04/2023 12:11 PM MAINTENANCE CONTROLLER Felix Rodriguez MD LAB - PATHOLOGY/CYTO LOGY ORDERABLES [facility] PATHOLOGY LAB [address] [facility]. [address] [phone] documented in this encounter Visit Diagnoses Diagnosis Illness, unspecified documented in this encounter Care Teams Rn Child Relationship Specialty Start Date End Date Dmitry North DO [address] [place] [address] PCP - General Internal Medicine 05/18/23 Fortunato Damon MD Neurological Surgery 07/17/12 Vita Beth MD [address] [place] [address] Family Medicine 07/17/12 documented as of this encounter
--- OUTSIDE RECORDS SUMMARY | 2024-11-27 00:41 | XMS_ITS | Continuity of Care Document ---
Author Organization [facility] Address [address] [place] [address] Phone Care Team Providers Care Wheel Of Fortune Dealer Name Role Phone Jennifer Swann Unavailable Unavailabl e Medications Medication Instructions Dosage Effective Dates (start - stop) Status Comments phenobarbital 64.8 mg tablet - Active Dilantin Extended 100 mg capsule - Active carbidopa 25 mg-levodopa 100 mg tablet - Active fluticasone 50 mcg/actuation nasal spray,suspension - Active Advair HFA 230 mcg-21 mcg/actuation aerosol inhaler - Active prednisone 10 mg tablet - Ac tive prednisone 20 mg tablet - Ac tive oseltamivir 75 mg capsule - Active amoxicillin 875 mg tablet - Active albuterol sulfate 2.5 mg/3 mL (0.083 %) solution for nebulization - Active dexamethasone 10 mg/mL injection solution - Active ciprofloxacin 500 mg tablet - Active permethrin 5 % topical cream - Active ProAir HFA 90 mcg/actuation aerosol inhaler - Active hydrocodone 5 mg-acetaminophen 325 mg tablet - Active SINEMET 10-100 (unknown strength) Not Available - Active Procedures Procedure Date Kenalog Triamcinolone acetonide inj Inject tndn sheath/lgmnt/gangl cyst Office/outpatient visit,[facility] 2017 Kenalog Triamcinolone acetonide inj Inject tndn sheath/lgmnt/gangl cyst Office/outpatient visit,[facility] 2017 Advance Directives Directive Yes / No Effective Date File Name No Information Encounters Encounter Description Practice Location Reason(s) For Visit Diagnoses Date Provider Providers Copied on Encounter Office/outpat ient visit,[facility], [address], [id number], tel:[phone] [employer] Right thumb (chief complaint) Trigger thumb, right thumb Dinaelizabeth Rodriguez. [address] [facility], [address], [id number], [place]. tel:[phone] Office/outpat ient visit,[facility], [address], [id number], [place] tel:[phone] [employer] right hand (chief complaint) Trigger thumb, right thumb Abby Ochoa. [address] [facility], [facility] [address], [place], [place], [id number], [place]. tel:[phone] Family History Family Member Type Diagnosis Age At Onset No Information Payers Payer name Insurance type Covered republican ID Glynn reese(s) [id number] Social History Type Description Quantity Date Captured [...]
--- OUTSIDE RECORDS SUMMARY | 2024-11-27 00:41 | XMS_ITS | Clinical Summary ---
Author Organization [facility] Address [address] [facility] [place] [address] Care Team Providers Care Plate Setter Name Role Phone Fortunato Damon MD Unavailable [phone] Vita Beth MD Unavailable Dmitry North DO Primary Care Provider [phone] Source Comments [facility],non-owned Affiliates and Associated Physician Practices is amultiple site organization consisting of ambulatory clinics and hospital sitesin [place], [place], [place] and [place]. This disclosure is being madepursuant to the Care Everywhere program and may not contain all information available regarding this patient. Last updated 18.[facility] Allergies Active Allergy Reactions Criticality Noted Date [...] fluticasone propionate (Flonase) 50 MCG/ACT nasal spray [place] 1 (one) spray into each nostril as [...] 67.6 kg (149 lb) 12/08/2023 2:22 PM ANALYTICAL STRATEGIST Height 166.4 cm (5' 5.5 ) 12/08/2023 2:22 PM ANALYTICAL STRATEGIST Body Mass Index 24.42 12/08/2023 2:22 PM ANALYTICAL STRATEGIST Plan of Treatment Health Maintenance Due Date [...] age to complete this topic Care Teams Plate Setter Relationship Specialty Start Date End Date Dmitry North DO [address] [place] [address] PCP - General Internal Medicine 05/18/23 Fortunato Damon MD Neurological Surgery 07/17/12 Vita Beth MD [address] [place] [address] Family Medicine 07/17/12
--- OUTSIDE RECORDS SUMMARY | 2024-11-27 00:41 | XMS_ITS | Referral Summary ---
Author Organization [facility] Address [address] [place] [address] Care Team Providers Care Operator Engineer Name Role Phone Yazan Amaya MD Primary Care Provider [phone] Encounters Date Type Department Care Team Description 10/31/2024 Telephone [facility] [address] [place] [address] [place] [address] Bert Masters MD 10/04/2024 Telephone [facility] Pulmonary [address] [facility] [address] [place] [address] [place] [address] Marzena Cook RN 10/01/2024 Orders Only [facility] [address] [facility] [address] [place] [address] [place] [address] Zuleima Bui MD PhD from [...] on file Legal Sex Female 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 Gender Identity Female 06/26/2018 1:15 PM CDT Sexual Orientation Not on file Last Filed Vital Signs Vital Sign Reading Time Taken Comments Blood Pressure 128/80 07/23/2024 12:44 PM CDT Pulse 79 07/23/2024 12:44 PM CDT Temperature 36.1 C (96.9 F) 07/23/2024 12:44 PM CDT Respiratory Rate 18 07/23/2024 12:44 PM CDT Oxygen Saturation 99% 07/23/2024 12:44 PM CDT Inhaled Oxygen Concentration - - Weight 68.5 kg (151 lb) 08/04/2024 10:51 AM CDT Height 165.1 cm (5' 5 ) 08/04/2024 10:51 AM CDT Body Mass Index 25.13 08/04/2024 10:51 AM CDT Plan of Treatment Not on file Insurance [facility] [id number] [facility] [id number] Care Teams Operator Engineer Relationship Specialty Start Date End Date Yazan Amaya MD PCP - General Family Practice 01/31/24
--- OUTSIDE RECORDS SUMMARY | 2024-11-27 00:41 | XMS_ITS | Clinical Summary ---
Author Organization [facility] Address [address] [place] [address] Phone Care Team Providers Care Driftman Name Role Phone Dmitry North Edelimra THAKUR Primary Care Provider Allergies Active Allergy Reactions Criticality Noted Date [...] 70 08/01/2021 2:30 AM CDT Temperature 36.6 C (97.9 F) 08/01/2021 12:20 AM CDT Respiratory Rate 21 08/01/2021 2:30 AM CDT [...] to complete this topic Insurance Care Teams Driftman Relationship Specialty Start Date End Date Dmitry North DO [address] [place], [place] [id number] PCP - General Internal Medicine 08/01/21
--- OUTSIDE RECORDS SUMMARY | 2024-11-27 00:41 | XMS_ITS | Clinical Summary ---
Author Organization [facility] Address [address] [place] [address] Care Team Providers Care Channel Marketing Manager Name Role Phone Yazan Amaya MD Primary Care Provider [phone] Allergies Active Allergy Reactions Criticality Noted Date [...] Type Department Care Team Description 10/31/2024 Telephone [facility] [address] [place] [address] [address] [place] [address] Bert Masters MD 10/04/2024 Telephone [facility] Pulmonary [address] [facility] [address]th [place] [address] [place] [address] Marzena Cook RN 10/01/2024 Orders Only [facility] Pulmonary [address] [facility] [address]th [place] [address] [place] [address] Zuleima Bui MD PhD from Last 3 [...] on file Legal Sex Female 3:41 AM RAW SAMPLER Gender Identity Female 06/26/2018 1:15 PM CDT [...] (1 of 2) 2013 Covid-19 Vaccine (3 - 2024- season) 06/17/202409/2021, 10/06/2020 Pneumococcal vaccine <65 (3 of 3 - PPSV23 or PCV20) 2028 01/17/2017, 01/01/2013 Influenza Vaccine Completed 07/23/2024, 08/10/2020 Insurance [facility] [id number] [facility] [id number] [facility] [id number] Care Teams Channel Marketing Manager Relationship Specialty Start Date End Date Yazan Amaya MD PCP - General Family Practice 01/31/24
--- OUTSIDE RECORDS SUMMARY | 2024-11-27 00:41 | XMS_ITS | Referral Summary ---
Author Organization [facility] Address [address] [place] [address] Care Team Providers Care Primary Grade Teacher Name Role Phone Fortunato Damon MD Unavailable [phone] Vita Beth MD Unavailable Dmitry North DO Primary Care Provider [phone] Source Comments [facility],non-owned Affiliates and Associated Physician Practices is amultiple site organization consisting of ambulatory clinics and hospital sitesin [place], [place], [place] and [place]. This disclosure is being madepursuant to the Care Everywhere program and may not contain all information available regarding this patient. Last updated 18.[facility] Allergies Active Allergy Reactions Criticality Noted [...] fluticasone propionate (Flonase) 50 MCG/ACT nasal spray [place] 1 (one) spray into each nostril as [...] 67.6 kg (149 lb) 12/08/2023 2:22 PM BUSINESS PROGRAMMER Height 166.4 cm (5' 5.5 ) 12/08/2023 2:22 PM BUSINESS PROGRAMMER Body Mass Index 24.42 12/08/2023 2:22 PM BUSINESS PROGRAMMER Plan of Treatment Not on file Care Teams Primary Grade Teacher Relationship Specialty Start Date End Date Dmitry North DO [address] [place] [id number] PCP - General Internal Medicine 05/18/23 Fortunato Damon MD Neurological Surgery 07/17/12 Vita Beth MD [address] [place] [address] Family Medicine 07/17/12
--- OUTSIDE RECORDS SUMMARY | 2024-11-27 00:41 | XMS_ITS | Encounter Summary ---
Author Organization [facility] Address [address] [place] [address] Phone Care Team Providers Care Launch Engineer Name Role Phone Nigel Cunningham MD Primary Care Provider [phone] John Villatoro Primary Care Provider Yazan Amaya MD Primary Care Provider [phone] Encounter Details Date Type Department Care Team (Latest Contact Info) Description 07/20/2017 Orders Only [facility] CONVERSION Scanning, Provider Social History Tobacco Use Types Packs/Day Years Used Date Smoking Tobacco: Never Comments Unknown Sex and Gender Information Value Date Recorded Sex Assigned at Not on file 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
--- OUTSIDE RECORDS SUMMARY | 2024-11-27 00:41 | XMS_ITS | Patient Health Summary ---
Author Organization [facility] Address [address] [place] [address] Care Team Providers Care Nurse Case Manager Name Role Phone Fortunato Damon MD Unavailable [phone] Vita Beth MD Unavailable Dmitry North DO Primary Care Provider [phone] Note from [facility],non-owned Affiliates and Associated Physician Practices is amultiple site organization consisting of ambulatory clinics and hospital sitesin [place], [place], [place] and [place]. This disclosure is being madepursuant to the Care Everywhere program and may not contain all information available regarding this patient. Last updated 18.[facility] Allergies * Clarithromycin(Rash) -Medium Criticality * Azithromycin(Urticaria) [...] fluticasone propionate (Flonase) 50 MCG/ACT nasal spray [place] 1 (one) spray into each nostril as [...] 67.6 kg (149 lb) 12/08/2023 2:22 PM SEAT TRIMMER Height 166.4 cm (5' 5.5 ) 12/08/2023 2:22 PM SEAT TRIMMER Body Mass Index 24.42 12/08/2023 2:22 PM SEAT TRIMMER Procedures * NJ NASAL ENDOSCOPY,DX(Performed 11/10/2023) Performed for Recurrent sinusitis, Deviated nasal septum, Nasal turbinate hypertrophy * PATHOLOGY TISSUE(Performed 11/04/2023) Performed for Illness, unspecified * PROC ENDOSCOPY-LARYNX(Performed 05/18/2023) Performed for Deviated nasal septum, Postnasal drip * NJ LARYNGOSCOPY,FLEX FIBER,DIAGNOSTIC(Performed 06/16/2021) Performed for Postnasal drip, Vocal cord dysfunction, Deviated nasal septum, Sleep-disordered breathing * PHENYTOIN LEVEL TOTAL(Performed 07/27/2012) Results * NJ NASAL ENDOSCOPY,DX (11/10/2023 2:57 PM SEAT TRIMMER) Narrative Felix Rodriguez MD - 11/10/2023 2:57 PM SEAT TRIMMER Felix Rodriguez MD 11/10/2023 3:39 PM Procedure Note Endoscopy Type: Nasal Endoscopy without debridement Anesthesia: Lidocaine 2% and Dany-Synephrine 1/2% Procedure Details: After topical anesthesia and decongestion, the patient was placed in the sitting position. The zero degree telescope was passed along the left nasal floor to the nasopharynx. It was then passed into the region of the middlemeatus, middle turbinate, and the sphenoethmoid region. An identical procedure was performed on the right side. The following findings were noted as stated below: Findings: Splints removed bilaterally today. Septum straight in the midline. Inferior turbinates are small and lateralized. Middle meatal regions open middle turbinates are medialized. Excellent ventilation of the anterior ethmoid with easy visualization into the maxillary sinus is healthy mucosa throughout. Condition: Stable. Patient tolerated procedure well. Complications: None I was present for the entirety of the procedure. Felix Rodriguez MD PROCEDURE/MINOR SURG ICAL ORDERABLES * PATHOLOGY TISSUE (11/04/2023 6:30 AM SEAT TRIMMER) Case Report Surgical Pathology Report Case: [id number] Authorizing Provider: Felix Rodriguez MD Collected: 11/04/2023 06:30 AM Ordering Location: [facility] Pathology Lab Received: 11/04/2023 12:11 PM Pathologist: Pablo Rubin MD Specimen: Sinus, Right and Left sinus contents 11/08/2023 12:37 PM [facility] PATHOLOGY LAB Final Diagnosis Sinus contents, right and left, excision (A): - Chronic sinusitis 11/08/2023 12:37 PM SEAT TRIMMER [facility] PATHOLOGY LAB Microscopic Description and Comment Microscopic examination substantiates the final diagnosis. 11/08/2023 12:37 PM [facility] PATHOLOGY LAB Clinical History This is a 58-year-old female with history of chronic sinusitis. Operative procedure: functional endoscopic sinus surgery. 11/08/2023 12:37 PM [facility] PATHOLOGY LAB Gross Description The requisition and specimen(s) are identified with the patient's name, Debbi Crouch. Received in formalin, specimen A , is a 2.5 x 2.0 x 0.5 cm aggregate of soft red-mauricio tissue admixed with hemorrhagic material. There is no conspicuous mucoid component. A construction sales representative sampling is submitted in cassette A1. GW 11/08/2023 12:37 PM [facility] PATHOLOGY LAB Pathologist Location at [facility] 11/08/2023 12:37 PM [facility] PATHOLOGY LAB Disclaimer The performance characteristics of all immunohistochemical and indirect immunofluorescence stains (if any) cited in this report were determined by the Histopathology Laboratory of [facility]. Some of these tests were developed [...] the attending (teaching) pathologist. 11/08/2023 12:37 PM [facility] PATHOLOGY LAB Embedded Images 11/08/2023 12:37 PM [facility] PATHOLOGY LAB Pathology/Cytolo gy SINUS / Unknown 11/04/2023 6:30 AM SEAT TRIMMER 11/04/2023 12:11 PM SEAT TRIMMER Felix Rodriguez MD LAB - PATHOLOGY/CYTO LOGY ORDERABLES [facility] PATHOLOGY LAB [address] [place] [place] [address], [facility] [phone] * PROC ENDOSCOPY-LARYNX (05/18/2023 4:28 PM CDT) Narrative Felix Rodriguez MD - 05/18/2023 4:28 PM CDT Felix Rodriguez MD 05/18/2023 7:39 PM Procedure Note Endoscopy Type: Laryngoscopy without stroboscopy [id number] Endoscope: Flexible 4mm Scope Anesthesia: Lidocaine 2% and Neosynephrine 1/2% (nasal) Procedure Details: The patient was sitting upright in a chair with the head in a slightly anterior sniffing position. The topical anesthesia was administered and then adequate time was allowed for an anesthetic effect. The endoscope was passed [...] 100 obstruction of the right nasal cavity. Large septal spur posteriorly on the left side. Nasopharynx is open. Mass of the lingual tonsil at the base of tongue completely obliterating the vallecula. Vocal cords are normal piriform sinuses are normal no retained secretions in the pharynx or larynx. Condition: Stable. Patient tolerated procedure well. Complications: None I was present for the entirety of the procedure. Felix Rodriguez MD PROCEDURE/MINOR SURG ICAL ORDERABLES * NJ LARYNGOSCOPY,FLEX FIBER,DIAGNOSTIC (06/16/2021 9:15 AM CDT) Narrative Felix Rodriguez MD - 06/16/2021 9:15 AM CDT Carlos Gore MD 06/16/2021 10:02 AM Procedure Note Endoscopy Type: Laryngoscopy without stroboscopy Endoscope: Flexible 4mm Scope Anesthesia: Lidocaine 2% and Neosynephrine 1/2% (nasal) Procedure Details: The patient was sitting upright with the head in a slightly anterior sniffing position. The topical anesthesia was administered and then adequate time was allowed for an anesthetic effect. The endoscope was passed [...] appropriate -Airway patency: widely patent Condition: Stable. Patient tolerated procedure well. Complications: None Dr Rodriguez was present for the entirety of the procedure. Silver Gore MD Otolaryngology Resident 06/16/2021 Felix Rodriguez MD PROCEDURE/MINOR SURG ICAL ORDERABLES * (ABNORMAL) PHENYTOIN LEVEL TOTAL (07/27/2012 1:04 PM CDT) Phenytoin 7.9(L) 10.0 - 20.0 mg/L [facility] Comment: Test Performed at: [facility] [address] [place] [address] GOVIND EPPS DO,MPH Venous blood specimen (specimen) 07/27/2012 1:04 PM CDT 07/27/2012 1:04 PM CDT Maikel Bhagat MD LAB - CHEMISTRY ORD ERABLES [facility]) Care Teams Nurse Case Manager Relationship Specialty Start Date End Date Dmitry North DO [address] [facility] [address] [place] [address] PCP - General Internal Medicine 05/18/23 Fortunato Damon MD Neurological Surgery 07/17/12 Vita Beth MD [address] [place] [address] Family Medicine 07/17/12
--- NOTE | 2024-11-27 14:45 | PM.HPGS ---
History of Present Illness History of Present Illness Consent: Risks, benefits, and alternatives have been discussed and questions answered. Patient agrees to proceed with procedure. Chief complaint: spondylosis cervical region, cervicalgia Narrative: Debbi Crouch is a 59 year old female with chronic, recalcitrant and disabling bilateral cervicothoracic neck pain secondary to degenerative spondylosis with failure to respond to aggressive conservative measures including PT, oral and topical analgesics, opioid and nonopioid analgesics, rest, time and activity/behavioral modification over the past 1-2 years who presents for diagnostic/prognostic medial branch blocks of the bilateral C6, C7, T1 medial branches/dorsal ramus(#1) addressing the bilateral C6-7, C7-T1 facet joints under fluoroscopic guidance and with contrast control. Review of Systems Review of Systems: Patient denies any new infectious, allergic, cardiopulmonary, neurologic or constitutional symptoms or changes in activity tolerance or exercise capacity including new or progressive SOB/HOWARD, peripheral edema, productive cough, dysuria, nausea/vomiting, diarrhea, weight change, fevers/chills/night sweats, new or progressive neurologic deficit, cognitive or mood changes since last seen, except as documented in the HPI. All systems reviewed & are unremarkable except as noted in HPI and below PMFSH Surgical History Surgical History History of ankle surgery H/O: hysterectomy Family History Family History Mother Hypertension Family history of Alzheimer's disease Patient's mother is Asthma Depression Anxiety Sibling Hypertension Diabetes mellitus Alcoholism Father Family history of chronic obstructive pulmonary disease Patient's father is Asthma Cancer Social History Social History Smoking status: Never smoker Second hand tobacco smoke exposure: No Alcohol intake: never Substance use: unknown Lack of Transportation: No Lack of Food: Never True Current Housing: Decline to Answer Concerned About Future Housing: Decline to Answer Difficulty Paying Gas/Electric Bills: Decline to Answer Difficulty Paying for Meds: Decline to Answer Currently Unemployed: Decline to Answer Education: Decline to Answer Difficulty w/ Childcare or Family Care: Decline to Answer Living arrangements: with family Spiritual care concerns: No Meds Home Medications and Allergies Home Medications ?Medication ?Instructions ?Recorded ?Confirmed ?Type albuterol sulfate 90 mcg/actuation 1 puff inhalation Q4H PRN 02/18/22 11/22/24 History aerosol inhaler (ProAir HFA) shortness of breath or wheezing carbidopa 25 mg-levodopa 100 mg 1 tablet PO QHS #90 tabs 12/07/23 11/22/24 Rx tablet (Sinemet) estrogen 105 mg BYMOUTH DAILY 12/07/23 11/22/24 History phenytoin sodium extended 100 mg 100 mg PO BID 12/07/23 11/22/24 History capsule (Dilantin Kapseal) progesterone micronized 200 mg 225 mg PO QHS 12/07/23 11/22/24 History capsule budesonide-formoterol HFA 80 2 puff inhalation Q12H 09/10/24 11/22/24 History mcg-4.5 mcg/actuation aerosol inhaler (Symbicort) phenobarbital 64.8 mg tablet 64.8 mg PO QHS 09/10/24 11/22/24 History thyroid (pork) 15 mg tablet 15 mg PO DAILY #60 tabs 11/19/24 11/22/24 Rx ([place] Thyroid) thyroid (pork) 60 mg tablet 60 mg PO DAILY #60 tabs 11/19/24 11/22/24 Rx ([place] Thyroid) Allergies Allergy/AdvReac Type Severity Reaction Status Date / Time clarithromycin Allergy Severe Rash Verified 11/22/24 10:07 azithromycin Allergy Intermediate Rash Verified 11/22/24 10:07 Exam Narrative: The patient's physical exam is essentially unchanged from prior examination on 09/10/2024. Specifically, patient demonstrates normal lung capacity, tidal volume and respiratory rate without wheezes, crackles, rales or rubs. Heart rate and rhythm are regular without murmurs, gallops or rubs. No JVD. Pulses 2+ globally without increasing peripheral edema. AAOx3 with no evidence of confusion, intoxication or altered mental state, NC/AT without acute distress or altered consciousness. Speech, cognition, mood, insight and judgment at baseline and within normal limits. Assessment and Plan Assessment and plan (1) Cervical spondylosis: Code(s): M47.812 - Spondylosis without myelopathy or radiculopathy, cervical region Status: Acute Assessment and Plan: Proceed as planned with diagnostic/prognostic medial branch blocks of the bilateral C6, C7, T1 medial branches/dorsal ramus(#1) addressing the bilateral C6-7, C7-T1 facet joints under fluoroscopic guidance and with contrast control. (2) Cervicalgia: Code(s): M54.2 - Cervicalgia Status: Acute (3) Chronic pain: Code(s): G89.29 - Other chronic pain Status: Acute
--- NOTE | 2024-11-27 14:48 | P.OP_ITS ---
Procedure Note - Detailed Date of Procedure 11/27/24 Pre-op Diagnosis spondylosis cervical region, cervicalgia Post-op Diagnosis Same Procedure Performed Diagnostic bilateral Cervical Medial Branch Nerve Blocks at C6, C7, T1 Blocking the bilat C6-7, C7-T1 facet joints under Fluoroscopic Guidance and with Contrast Control (4 levels blocked). Surgeon Don Beltre MD Labor Relations Worker None. Anesthesia Local Description of Procedure INFORMED CONSENT: Risks, benefits and alternatives to the procedure were discussed in detail with the patient who expressed explicit understanding and consent to proceed. Patient was informed verbally and in written form regarding the risks associated with the procedure including the low risk of serious infection, bleeding/bruising, allergic reaction, nerve or organ injury, paralysis, procedural site pain or discomfort, worsening pain and/or mobility, failure to treat and/or disfigurement. The patient expressed explicit understanding and consent to proceed. All materials required for the procedure were available prior to procedure start. Site and side were marked prior to procedure and confirmed in the presence of the patient. PROCEDURE IN DETAIL: The patient was brought to the procedural suite and placed in the prone position with head stabilized with a ProneView pillow. Patient was made comfortable with use of pillows under the head/chest, hips and ankles. Skin overlying the injection site on the affected side(s) was prepared broadly with ChloraPrep applicator and draped in a sterile manner. Aseptic technique was used throughout. The endplates of the vertebral bodies at the site(s) of interest were aligned in the AP view. Ipsilateral oblique angulation was utilized to optimize visualization of the pars interarticularis at each target site. Local anesthesia was established by infiltration with approximately 5 mL of 0.5% lidocaine via a 1-1/2 inch 27-gauge needle divided over each injection site. A 25-gauge 3.5 inch Quincke spinal needle was advanced until the needle tip contacted the periosteum of the pars interarticularis at the target site, right C6 medial branch. Lateral view was utilized to confirm the appropriate placement of the needle tip just anterior to the center point of the interarticularis. In the Lateral view, 0.25 mL of Omnipaque 300 contrast medium was injected after negative aspiration for CSF, blood or other bodily fluid, showing appropriate extra-articular spread of contrast without evidence of intravascular, foraminal or intrathecal placement. A 0.25 mL solution of 0.5% PF bupivacaine was injected after negative repeat aspiration. Appropriate spread of the injectate was confirmed with washout of previously injected contrast. No parasthesias were elicited. Needle was removed completely intact without difficulty. The same exact procedure was repeated for all remaining levels on the ipsilateral side, right C7, T1 medial branches, modified as necessary to accommodate for the new target location with identical findings and results and no evidence of complication. The same exact procedure was repeated for all remaining levels on the contralateral side, left C6, C7, T1 medial branches, modified as necessary to accommodate for the new target location with identical findings and results and no evidence of complication. Images were saved and documented in the patient chart. Patient's skin was cleansed and sterile bandage applied. The patient tolerated the procedure well. The patient was transported to the recovery area in stable condition where they were observed for an appropriate amount of time prior to discharge, without evidence of complication. Patient was instructed on the appropriate completion of a pain diary over the next 12-24 hours. The patient was instructed to avoid excessive activity for the next 48 hours, including climbing and frequent use of stairs. Showers only for 48 hours. They were instructed not to drive or operate heavy machinery for 24 hours. They are to monitor for severe headaches, fevers, chills, night sweats, e rythema/swelling at the site or any other signs of infection, bleeding/bruising, bowel or bladder changes as well as new pain, weakness or numbness in the upper or lower extremity. Should they notice these changes, they are instructed to call our office immediately or report directly to the nearest Emergency Department if no answer or if after posted office hours. COMPLICATIONS: None COMMENTS: None CONTRAST WASTED: 28.5mL Omnipaque 300. Complications No immediate complications Condition Stable Disposition Same day [facility] Billing Surgery - Charge Forward: Surgery Billing
--- NOTE | 2024-11-27 14:48 | WPDHPUPDATE1 ---
History and Physical Update Update Date/Time: 11/27/24 14:48 History and Physical has been reviewed, including an updated exam of the patient. There are NO changes in the patient's condition. Risks, benefits, and alternatives have been discussed and questions answered. Patient agrees to proceed with procedure.
[2024-11-27 14:53] VITALS: BMI 25.2
[2024-11-27 15:01] VITALS: BP 138/90; PULSE 80; RESP 16; TEMP 36.6; O2SAT 100
[2024-11-27] MEDS: BUPivacaine HCL 0.5% 10 ML AMP INFILTRATE (16:14)
[2024-11-27 16:15] VITALS: BP 135/77; PULSE 75; RESP 14; O2SAT 99
[2024-11-27 16:33] VITALS: BP 135/83; PULSE 73; RESP 14; O2SAT 99
[2024-11-27 16:40] VITALS: BP 130/80; PULSE 70; RESP 14; O2SAT 99
--- NOTE | 2024-11-27 16:42 | SUR.OPER ---
bupivicaine 0.5% used preservative free
== END 2024-11-27 17:02 | disposition home or self-care (01) ==
PROVIDERS: PCP Family Medicine; Visit Provider Anesthesiology Pain Medicine
PROC: (CPT 64490; principal; 2024-11-27 14:30)
DX: M47.812 Spondylosis without myelopathy or radiculopathy, cervical region (principal); M54.2 Cervicalgia; G89.29 Other chronic pain; Z79.51 Long term (current) use of inhaled steroids; Z98.890 Other specified postprocedural states; Z80.9 Family history of malignant neoplasm, unspecified
CPT/HCPCS: 64490; 64491; 64492; 99199; J2003; Q9965

== ENCOUNTER 2024-12-19 16:16 | Outpatient (CLI) | payer OTHER, SELFPAY ==
--- NOTE | ~2024-12-19 | XR_ITS ---
EXAMINATION: XR ribs LT 2V DATE: 12/19/2024 16:52 INDICATION: Proteinuria. Left-sided rib pain. TECHNIQUE: 3 views of the left ribs were obtained. COMPARISON: Chest radiograph dated 07/31/[address] dated 08/04/2021 FINDINGS: No rib fractures identified. Left lung and visualized portions of the right lung are clear with no ai rspace opacities, pulmonary edema, pleural effusion or pneumothorax. Heart size is normal. Soft tissu es are unremarkable. Mild left glenohumeral and acromioclavicular osteoarthritis. IMPRESSION: 1. No rib fracture or acute cardiopulmonary disease. Reviewed, dictated and finalized at location B. STANT TEACHER PRIMARY
--- NOTE | ~2024-12-19 | XR_ITS ---
XR abdomen obstructive series Ordering provider: Yazan Amaya MD History: . R10.32 - Left lower quadrant pain, FEVER, DIARRHEA . Comparison: None. FINDINGS: BOWEL: Nonobstructive bowel gas pattern. ORGANOMEGALY: None. SIGNIFICANT PATHOLOGIC CALCIFICATIONS: None. OTHER: No free air is seen under the diaphragm. Bilateral hip mild to moderate osteoarthritic changes . IMPRESSION: NO ACUTE ABDOMINAL FINDINGS. Reviewed, dictated and finalized at location A. INAL INVESTIGATIVE AGENT
--- OUTSIDE RECORDS SUMMARY | 2024-12-19 17:44 | XMS_ITS | Encounter Summary ---
Author Organization [facility] Address [address] [place] [address] Phone Care Team Providers Care Oil Field Pipeline Supervisor Name Role Phone Nigel Cunningham MD Primary Care Provider [phone] John Villatoro Primary Care Provider Yazan Amaya MD Primary Care Provider [phone] Encounter Details Date Type Department Care Team (Latest Contact Info) Description 07/20/2017 Orders Only [facility] CONVERSION Scanning, Provider Social History Tobacco Use Types Packs/Day Years Used Date Smoking Tobacco: Never Comments Unknown Sex and Gender Information Value Date Recorded Sex Assigned at Not on file 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
--- OUTSIDE RECORDS SUMMARY | 2024-12-19 17:44 | XMS_ITS | Clinical Summary ---
Author Organization [facility] Address [address] [place] [address] Phone Care Team Providers Care Organic Lab Worker Name Role Phone Dmitry North Edelmira THAKUR Primary Care Provider Allergies Active Allergy [...] to complete this topic Insurance Care Teams Organic Lab Worker Relationship Specialty Start Date End Date Dmitry North DO [address] [place], [place] [id number] PCP - General Internal Medicine 08/01/21
--- OUTSIDE RECORDS SUMMARY | 2024-12-19 17:44 | XMS_ITS | Clinical Summary ---
Author Organization [facility] Address [address] [place] [address] Care Team Providers Care Rigging Engineer Name Role Phone Fortunato Damon MD Unavailable [phone] Vita Beth MD Unavailable Dmitry North DO Primary Care Provider [phone] Source Comments [facility],non-owned Affiliates and Associated Physician Practices is amultiple site organization consisting of ambulatory clinics and hospital sitesin [place], [place], [place] and [place]. This disclosure is being madepursuant to the Care Everywhere program and may not contain all information available regarding this patient. 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
--- OUTSIDE RECORDS SUMMARY | 2024-12-19 17:44 | XMS_ITS | Continuity of Care Document ---
Author Organization [facility] Address [address] [place] [address] Phone Care Team Providers Care Range Management Specialist Name Role Phone Jennifer Swann Unavailable Unavailabl [...] acetonide inj Inject tndn sheath/lgmnt/gangl cyst Office/outpatient visit,[facility] 2017 Kenalog Triamcinolone acetonide inj Inject tndn sheath/lgmnt/gangl cyst Office/outpatient visit,[facility] 2017 Advance Directives Directive Yes / No Effective Date File Name No Information Encounters Encounter Description Practice Location Reason(s) For Visit Diagnoses Date Provider Providers Copied on Encounter Office/outpat ient visit,[facility], [address], [id number], tel:[phone] Ideabove Right thumb (chief complaint) Trigger thumb, right thumb Dinaelizabeth Rodriguez. [address] [facility], [address], [id number], [place]. tel:[phone] Office/outpat ient visit,[facility], [address], [id number], [place] tel:[phone] Ideabove right hand (chief complaint) Trigger thumb, right thumb Abby Ochoa. [address] [facility], [facility] [address], [place], [place], [id number], [place]. tel:[phone] Family History Family Member Type Diagnosis Age At Onset No Information Payers Payer name Insurance type Covered democrat ID [id number] Social History Type Description Quantity Date Captured [...]
--- OUTSIDE RECORDS SUMMARY | 2024-12-19 17:44 | XMS_ITS | Referral Summary ---
Author Organization [facility] Address [address] [place] [address] Care Team Providers Care Senior Quality Engineer Name Role Phone Yazan Amaya MD Primary Care Provider [phone] Encounters Date Type Department Care Team Description 10/31/2024 Telephone [facility] [address] [place] [address] [place] [address] Bert Masters MD 10/04/2024 Telephone [facility]monary [address] [facility] 8th [place] [address] Marzena Cook RN 10/01/2024 Orders Only [facility]monary [address] [facility] 8th [place] [address] [place] [address] Zuleima Bui MD PhD from Last 3 Months Allergies Active Allergy Reactions Criticality Noted Date Comments Azithromycin Rash Medium 04/30/2018 Clarithromycin Rash Medium 01/01/2013 Medications carbidopa-levo dopa (SINEMET) 25-100 mg per tabletIndicati ons:Parkinsoni sm Take 1 tablet by mouth nightly 03/23/20 18 Active cholecalcifero l (VITAMIN D-3) 2000 unit capsule 2.5 capsules (5,000 Units total) daily 01/18/20 17 Active fexofenadine (CHELSY) 180 mg tablet Take 1 tablet (180 mg total) by mouth daily Active esterified estrogens 1.25 mg tablet 1 tablet (1.25 mg total) Active progesterone (PROMETRIUM) 100 mg capsule Take 1 capsule (100 mg total) by mouth daily Active Amzeeq 4 % foam 06/23/20 23 Active phenytoin ER (DILANTIN) 100 mg ER capsuleIndicat ions:Partial epilepsy with impairment of consciousness, intractable (HCC) Take 2 capsules (200 mg total) by mouth every morning AND 1 capsule (100 mg total) nightly. 270 capsule 3 05/16/20 24 2024 Active magnesium gluconate 200 mg tablet Take 1.165 tablets (233 mg total) by mouth daily Active TESTOSTERONE, BULK, MISC Cream 1 05/29/20 24 Active loteprednol (LOTEMAX) 0.5 % ophthalmic suspension INSTILL ONE DROP IN THE RIGHT EYE ONCE DAILY FOR 14 DAYS AND THREE TIMES A DAY IN THE LEFT EYE FOR 7 DAYS, THEN TWICE A DAY BOTH EYES FOR 7 DAYS. 07/18/20 24 Active terconazole (TERAZOL 3) 0.8 % vaginal cream INSERT APPLICATORFUL VAGINALLY AT BEDTIME FOR 3 NIGHTS 07/01/20 24 Active THYROID, BULK, MISC Take 1.5 mg by mouth daily Active fluticasone propionate (FLONASE) 50 mcg/actuation nasal sprayIndicatio ns:Allergic Rhinitis Administer 2 sprays into each nostril daily 1 each 5 07/23/20 24 Active budesonide-for moteroL (SYMBICORT) 160-4.5 mcg/actuation inhaler 1-2 puffs 1-2 times/day & 1 puff as needed. Max 12 puffs/day. Rinse mouth with water after use. Do not swallow. 20.4 g 5 10/01/20 24 Active PHENobarbitaL 64.8 mg tabletIndicati ons:Partial epilepsy with impairment of consciousness, intractable (HCC) Take 1 tablet by mouth nightly 30 tablet 5 11/27/19 25 Active PHENobarbitaL 64.8 mg tabletIndicati ons:Partial epilepsy with impairment of consciousness, intractable (HCC) Take 1 tablet (64.8 mg total) by mouth nightly 30 tablet 5 05/16/20 24 2024 Discontinued Active Problems Problem Noted Date Diagnosed Date Partial epilepsy with impair ment of consciousness, intractable 04/11/2019 Severe persistent asthma without complication Immunizations Immunization Administration Dates Next Due Influenza, Trivalent, Cell [...] on file 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
--- OUTSIDE RECORDS SUMMARY | 2024-12-19 17:44 | XMS_ITS | Referral Summary ---
Author Organization [facility] Address [address] [facility] [place] [address] Care Team Providers Care Electro Optics Engineer Name Role Phone Fortunato Damon MD Unavailable [phone] Vita Beth MD Unavailable Dmitry North DO Primary Care Provider [phone] Source Comments [facility],non-owned Affiliates and Associated Physician Practices is amultiple site organization consisting of ambulatory clinics and hospital sitesin [place], [place], [place] and [place]. This disclosure is being madepursuant to the Care Everywhere program and may not contain all information available regarding this patient. 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
--- OUTSIDE RECORDS SUMMARY | 2024-12-19 17:44 | XMS_ITS | Clinical Summary ---
Author Organization [facility] Address [address] [place] [address] Care Team Providers Care Repair Mechanic Name Role Phone Yazan Amaya MD Primary Care Provider [phone] Allergies Active Allergy Reactions Criticality Noted Date [...] Type Department Care Team Description 10/31/2024 Telephone [facility] [address] [place] [phone] Bert Masters MD 10/04/2024 Telephone [facility] [address] [facility] [address] [place] [address] [place] [address] Marzena Cook RN 10/01/2024 Orders Only [facility] [address] [facility] [address] [place] [address] [place] [address] Zuleima Bui MD PhD from Last 3 Months Immunizations Immunization Administration Dates Next Due Influenza, [...] on file 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
--- OUTSIDE RECORDS SUMMARY | 2024-12-19 17:44 | XMS_ITS | Patient Health Summary ---
Author Organization [facility] Address [address] [place] [place] [address] Care Team Providers Care Grounds Supervisor Name Role Phone Fortunato Damon MD Unavailable [phone] Vita Beth MD Unavailable Dmitry North DO Primary Care Provider [phone] Note from [facility],non-owned Affiliates and Associated Physician Practices is amultiple site organization consisting of ambulatory clinics and hospital sitesin [place], [place], [place] and [place]. This disclosure is being madepursuant to the Care Everywhere program and may not contain all information available regarding this patient. Last updated 18.[facility] Allergies * Clarithromycin(Rash) -Medium Criticality * Azithromycin(Urticaria) [...] fluticasone propionate (Flonase) 50 MCG/ACT nasal spray [place] 1 (one) spray into each nostril as [...] 67.6 kg (149 lb) 12/08/2023 2:22 PM SLITTING AND SHIPPING SUPERVISOR Height 166.4 cm (5' 5.5 ) 12/08/2023 2:22 PM SLITTING AND SHIPPING SUPERVISOR Body Mass Index 24.42 12/08/2023 2:22 PM SLITTING AND SHIPPING SUPERVISOR Procedures * [place] NASAL ENDOSCOPY,DX(Performed 11/10/2023) Performed for Recurrent sinusitis, Deviated nasal septum, Nasal turbinate hypertrophy * PATHOLOGY TISSUE(Performed 11/04/2023) Performed for Illness, unspecified * PROC ENDOSCOPY-LARYNX(Performed 05/18/2023) Performed for Deviated nasal septum, Postnasal drip * [place] LARYNGOSCOPY,FLEX FIBER,DIAGNOSTIC(Performed 06/16/2021) Performed for Postnasal drip, Vocal cord dysfunction, Deviated nasal septum, Sleep-disordered breathing * PHENYTOIN LEVEL TOTAL(Performed 07/27/2012) Results * [place] NASAL ENDOSCOPY,DX (11/10/2023 2:57 PM SLITTING AND SHIPPING SUPERVISOR) Narrative Felix Rodriguez MD - 11/10/2023 2:57 PM SLITTING AND SHIPPING SUPERVISOR Felix Rodriguez MD 11/10/2023 3:39 PM Procedure [...] ORDERABLES * PATHOLOGY TISSUE (11/04/2023 6:30 AM SLITTING AND SHIPPING SUPERVISOR) Case Report Surgical Pathology Report Case: [id number] Authorizing Provider: Felix Rodriguez MD Collected: 11/04/2023 06:30 AM Ordering Location: [facility] Pathology Lab Received: 11/04/2023 12:11 PM Pathologist: Pablo Rubin MD Specimen: Sinus, Right and Left sinus contents 11/08/2023 12:37 PM SLITTING AND SHIPPING SUPERVISOR [facility] PATH[facility]Y [facility] Final Diagnosis Sinus contents, right and left, excision (A): - Chronic sinusitis 11/08/2023 12:37 PM SLITTING AND SHIPPING SUPERVISOR [facility] PATHOLOGY LAB Microscopic Description and Comment Microscopic examination substantiates the final diagnosis. 11/08/2023 12:37 PM [facility] PATHOLOGY LAB Clinical History This is a 58-year-old female with history of chronic sinusitis. Operative procedure: functional endoscopic sinus surgery. 11/08/2023 12:37 PM [facility] PATHOLOGY LAB Gross Description The requisition and specimen(s) are identified with the patient's name, Debbi Crouch. Received in formalin, specimen A , is a 2.5 x 2.0 x 0.5 cm aggregate of soft red-mauricio tissue admixed with hemorrhagic material. There is no conspicuous mucoid component. A business process representative sampling is submitted in cassette A1. GW 11/08/2023 12:37 PM [facility] PATHOLOGY LAB Pathologist Location at [facility] 11/08/2023 12:37 PM [facility] PATHOLOGY LAB Disclaimer The performance characteristics of all immunohistochemical and indirect immunofluorescence stains (if any) cited in this report were determined by the Histopathology Laboratory of [facility]. Some of these tests were developed [...] the attending (teaching) pathologist. 11/08/2023 12:37 PM [facility] PATHOLOGY LAB Embedded Images 11/08/2023 12:37 PM [facility] PATHOLOGY LAB Pathology/Cytolo gy SINUS / Unknown 11/04/2023 6:30 AM SLITTING AND SHIPPING SUPERVISOR 11/04/2023 12:11 PM SLITTING AND SHIPPING SUPERVISOR Felix Rodriguez MD LAB - PATHOLOGY/CYTO LOGY ORDERABLES [facility] PATHOLOGY LAB [address] [address], [facility] [phone] * PROC ENDOSCOPY-LARYNX (05/18/2023 4:28 PM CDT) Narrative Felix Rodriguez MD - 05/18/2023 4:28 PM CDT Felix Rodriguez MD 05/18/2023 7:39 PM Procedure Note Endoscopy Type: Laryngoscopy without stroboscopy 33492 Endoscope: Flexible 4mm Scope Anesthesia: Lidocaine 2% [...] Rodriguez MD PROCEDURE/MINOR SURG ICAL ORDERABLES * [place] LARYNGOSCOPY,FLEX FIBER,DIAGNOSTIC (06/16/2021 9:15 AM CDT) Narrative [...] Phenytoin 7.9(L) 10.0 - 20.0 mg/L [facility]) Comment: Test Performed at: [facility] [place] [address] [place] [address] GOVIND EPPS DO,MPH Venous blood specimen (specimen) 07/27/2012 1:04 PM CDT 07/27/2012 1:04 PM CDT Maikel Bhagat MD LAB - CHEMISTRY ORD ERABLES [facility]) Care Teams Grounds Supervisor Relationship Specialty Start Date End Date Dmitry North DO [address] [facility] [address] [place] [phone] PCP - General Internal Medicine 05/18/23 Fortunato Damon MD Neurological Surgery 07/17/12 Vita Beth MD [address] [place] [address] Family Medicine 07/17/12
--- OUTSIDE RECORDS SUMMARY | 2024-12-19 17:44 | XMS_ITS | Encounter Summary ---
Author Organization [facility] Address [address] [place] [address] Care Team Providers Care Heading Saw Operator Name Role Phone Fortunato Damon MD Unavailable [phone] Vita Beth MD Unavailable Dmitry North DO Primary Care Provider [phone] Encounter Details Date Type Department Care Team (Late st Contact Info) Description 11/04/2023 Lab Requisition [facility] - Pathology Lab [address] [place] [address] Felix Rodriguez MD [address] DEPT OF [place]ARY[place] [address] Illness, unspecified Social History Tobacco Use Types [...] Comments PATHOLOGY TISSUE Routine 11/04/2023 6:30 AM LEGAL STENOGRAPHER Illness, unspecified documented in this encounter Results * PATHOLOGY TISSUE (11/04/2023 6:30 AM LEGAL STENOGRAPHER) Case Report Surgical Pathology Report Case: [id number] Authorizing Provider: Felix Rodriguez MD Collected: 11/04/2023 06:30 AM Ordering Location: [facility] Pathology Lab Received: 11/04/2023 12:11 PM Pathologist: Pablo Rubin MD Specimen: Sinus, Right and Left sinus contents 11/08/2023 12:37 PM [facility] Final Diagnosis Sinus contents, right and left, excision (A): - Chronic sinusitis 11/08/2023 12:37 PM [facility] PATHOLOGY LAB Microscopic Description and Comment Microscopic examination substantiates the final diagnosis. 11/08/2023 12:37 PM [facility] Clinical History This is a 58-year-old female with history of chronic sinusitis. Operative procedure: functional endoscopic sinus surgery. 11/08/2023 12:37 PM [facility] Gross Description The requisition and specimen(s) are identified with the patient's name, Debbi Crouch. Received in formalin, specimen A , is a 2.5 x 2.0 x 0.5 cm aggregate of soft red-mauricio tissue admixed with hemorrhagic material. There is no conspicuous mucoid component. A disability representative sampling is submitted in cassette A1. GW 11/08/2023 12:37 PM [facility] Pathologist Location at [facility] 11/08/2023 12:37 PM [facility] PATHOLOGY LAB Disclaimer The performance characteristics of all immunohistochemical and indirect immunofluorescence stains (if any) cited in this report were determined by the Histopathology Laboratory of [facility]. Some of these tests were developed [...] the attending (teaching) pathologist. 11/08/2023 12:37 PM [facility] Embedded Images 11/08/2023 12:37 PM [facility] PATHOLOGY LAB Pathology/Cytolo gy SINUS / Unknown 11/04/2023 6:30 AM LEGAL STENOGRAPHER 11/04/2023 12:11 PM LEGAL STENOGRAPHER Felix Rodriguez MD LAB - PATHOLOGY/CYTO LOGY ORDERABLES [facility] PATHOLOGY LAB [address] [facility]. [address] [phone] documented in this encounter Visit Diagnoses Diagnosis Illness, unspecified documented in this encounter Care Teams Heading Saw Operator Relationship Specialty Start Date End Date Dmitry North DO [address] [place] [address] [place] [address] PCP - General Internal Medicine 05/18/23 Fortunato Damon MD Neurological Surgery 07/17/12 Vita Beth MD [address] [place] [address] Family Medicine 07/17/12 documented as of this encounter
== END 2024-12-19 16:17 | disposition home or self-care (01) ==
PROVIDERS: PCP Family Medicine; Visit Provider Family Medicine
DX: R10.32 Left lower quadrant pain (principal); R07.81 Pleurodynia
CPT/HCPCS: 71100; 74019

== ENCOUNTER 2025-03-18 00:34 | Day surgery (SDC) | payer OTHER, SELFPAY ==
--- NOTE | 2025-01-10 14:48 | PC.NURSE ---
Addendum entered by Mason Felipe RN 03/12/25 15:37: Patient says no changes since preop interview. Informed to be here at 1130 on 03-18-2025 for surgery at 1230. Ok for light breakfast then nothing to eat or drink after 1030. Original Note: Report to the Outpatient Waiting Room, entrance under the green pavilion located off [facility], at time _130pm_ on date _[id number]_. Planned Procedure Time: _230pm_.? Time changes happen often and if your time is changed the preop area will call you the afternoon before. - You and your visitor will be asked to self-screen and do not enter if you have any COVID symptoms. Please call surgeon if you need to reschedule. - A mask is optional within the hospital at this time. - No smoking, or chewing tobacco (or any form of nicotine). No chewing gum, candy or mints. OK breakfast, nothing to eat or drink after 1230. Take only the following medications with a SIP of water on the morning of surgery: ___OK all medications____ DO NOT STOP ANY OF YOUR OTHER PRESCRIPTION MEDICATIONS PRIOR TO SURGERY EXCEPT THE FOLLOWING Hold all vitamins and supplements for 3 days per anesthesiologist. Medications to discontinue per physician Date to take last dose Please no make-up, nail kenyan, hairspray, perfume, deodorant, or body powder the day of surgery.? No jewelry (including any body piercings) or valuables the day of surgery, leave them at home.? Please take a shower or bath the night before, or the morning of, surgery with an antibacterial soap.? Wear comfortable, loose fitting clothing.? - Jewelry must be removed prior to entering the operating room.? Rings and piercings that are not removed may be cut off. - The hospital will not accept responsibility for valuables.? - Please leave all valuables, including medications, at home the day of surgery. If you are going home after surgery, a licensed airport driver must drive you home.? - NO public transportation without another adult if you receive anesthesia. Follow any additional instructions given to you from your surgeon. Telephone instructions given to __Debra__and asked if any additional questions and then verbalized understanding. Patient advised to call surgeon office or pre surgery nurse liaison [phone] if any additional questions.
[2025-01-10 14:56] VITALS: BMI 25.2
--- OUTSIDE RECORDS SUMMARY | 2025-01-21 00:45 | XMS_ITS | Clinical Summary ---
Author Organization [facility] Address [address] [place] [address] Care Team Providers Care Ship Self Defense System Mk1 Operator Name Role Phone Yazan Amaya MD Primary Care Provider [phone] Allergies Active Allergy Reactions Criticality Noted Date [...] Active Amzeeq 4 % foam 3 Active phenytoin ER (DILANTIN) 100 mg ER [...] not swallow. 20.4 g 5 4 Active PHENobarbitaL 64.8 mg tabletIndicatio ns:Partial epilepsy with impairment of consciousness, intractable (HCC) Take 1 tablet by mouth nightly 30 tablet 5 5 Active Active Problems Problem Noted Date Diagnosed Date Partial epilepsy with impair ment of consciousness, intractable 04/11/2019 Severe persistent asthma without complication Encounters Date Type Department Care Team Description 10/31/2024 Telephone [facility] [address] [place] [address] Bert Masters MD from Last 3 Months Immunizations Immunization Administration [...] conditions History of seizure - (Added by JAYLIN Conv) Family History Medical History Relation Name [...] on file Legal Sex Female 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
--- OUTSIDE RECORDS SUMMARY | 2025-01-21 00:45 | XMS_ITS | Encounter Summary ---
Author Organization [facility] Address [address] [place] [address] Phone Care Team Providers Care Independent Driver Name Role Phone Nigel Cunningham MD Primary Care Provider [phone] John Villatoro Primary Care Provider Yazan Amaya MD Primary Care Provider [phone] Encounter Details Date Type Department Care Team (Latest Contact Info) Description 07/20/2017 Orders Only [facility] CONVERSION Scanning, Provider Social History Tobacco Use Types Packs/Day Years Used Date Smoking Tobacco: Never Comments Unknown Sex and Gender Information Value Date Recorded Sex Assigned at Not on file Legal Sex Female 3:41 AM TRAPPER ANIMAL Gender Identity Female 06/26/2018 1:15 PM CDT [...] on filedocumented in this encounter Care Teams Independent Driver Relationship Specialty Start Date End Date Nigel Cunningham MD PCP - General 03/07/17 09/01/21 John Villatoro PA [address] [place] [address] [place], [place] [id number] PCP - General Physician Corrosion Prevention Metal Sprayer 09/02/21 01/30/24 Yazan Amaya MD [address] [facility] [address] [place] [address] PCP - General Family Practice 01/31/24 documented as of this encounter
--- OUTSIDE RECORDS SUMMARY | 2025-01-21 00:45 | XMS_ITS | Encounter Summary ---
Author Organization [facility] Address [address] [place] [address] Care Team Providers Care Cartoon Designer Name Role Phone Fortunato Damon MD Unavailable [phone] iVta Beth MD Unavailable Dmitry North DO Primary Care Provider [phone] Encounter Details Date Type Department Care Team (Late st Contact Info) Description 11/04/2023 Lab Requisition [facility] - Pathology Lab [address] [place] [address] Felix Rodriguez MD [address] [place] [address] Illness, unspecified Social History Tobacco Use Types [...] Comments PATHOLOGY TISSUE Routine 11/04/2023 6:30 AM HYDRAULIC BILLET MAKER Illness, unspecified documented in this encounter Results * PATHOLOGY TISSUE (11/04/2023 6:30 AM HYDRAULIC BILLET MAKER) Case Report Surgical Pathology Report Case: [id number] Authorizing Provider: Felix Rodriguez MD Collected: 11/04/2023 06:30 AM Ordering Location: [facility] Pathology Lab Received: 11/04/2023 12:11 PM Pathologist: Pablo Rubin MD Specimen: Sinus, Right and Left sinus contents 11/08/2023 12:[address] [facility] Final Diagnosis Sinus contents, right and left, excision (A): - Chronic sinusitis 11/08/2023 12:37 PM [facility] PATHOLOGY LAB Microscopic Description and Comment Microscopic examination substantiates the final diagnosis. 11/08/2023 12:[address] [facility] Clinical History This is a 58-year-old female with history of chronic sinusitis. Operative procedure: functional endoscopic sinus surgery. 11/08/2023 12:[address] [facility] Gross Description The requisition and specimen(s) are identified with the patient's name, Debbi Crouch. Received in formalin, specimen A, is a 2.5 x 2.0 x 0.5 cm aggregate of soft red-mauricio tissue admixed with hemorrhagic material. There is no conspicuous mucoid component. A quality audit representative sampling is submitted in cassette A1. GW 11/08/2023 12:[address] [facility] Pathologist Location at [facility] 11/08/2023 12:37 PM [facility] PATHOLOGY LAB Disclaimer The performance characteristics of all immunohistochemical and indirect immunofluorescence stains (if any) cited in this report were determined by the Histopathology Laboratory of [facility]. Some of these tests were developed by [...] the attending (teaching) pathologist. 11/08/2023 12:[address] [facility] Embedded Images 11/08/2023 12:37 PM [facility] PATHOLOGY LAB Pathology/Cytolo gy SINUS / Unknown 11/04/2023 6:30 AM HYDRAULIC BILLET MAKER 11/04/2023 12:11 PM HYDRAULIC BILLET MAKER Felix Rodriguez MD LAB - PATHOLOGY/CYTO LOGY ORDERABLES [facility] PATHOLOGY LAB [address] [facility]. [address] [phone] documented in this encounter Visit Diagnoses Diagnosis Illness, unspecified documented in this encounter Care Teams Cartoon Designer Relationship Specialty Start Date End Date Dmitry North DO [address] [place] [address] [place] [address] PCP - General Internal Medicine 05/18/23 Fortunato Damon MD Neurological Surgery 07/17/12 Vita Beth MD [address] [place] [address] Family Medicine 07/17/12 documented as of this encounter
--- OUTSIDE RECORDS SUMMARY | 2025-01-21 00:45 | XMS_ITS | Clinical Summary ---
Author Organization [facility] Address [address] [facility] [place] [address] Care Team Providers Care Recording Studio Intern Name Role Phone Fortunato Damon MD Unavailable [phone] Vita Beth MD Unavailable Dmitry North DO Primary Care Provider [phone] Source Comments [facility],non-owned Affiliates and Associated Physician Practices is amultiple site organization consisting of ambulatory clinics and hospital sitesin [place], [place], [place] and [place]. This disclosure is being madepursuant to the Care Everywhere program and may not contain all information available regarding this patient. Last updated 18.[facility] Allergies Active Allergy Reactions Criticality Noted [...] fluticasone propionate (Flonase) 50 MCG/ACT nasal spray [place] 1 (one) spray into each nostril as [...] 67.6 kg (149 lb) 12/08/2023 2:22 PM RECEIVING LEAD Height 166.4 cm (5' 5.5) 12/08/2023 2:22 PM RECEIVING LEAD Body Mass Index 24.42 12/08/2023 2:22 PM RECEIVING LEAD Plan of Treatment Health Maintenance Due Date [...] - 2023-2 5 season) 2024 10/28/2020, 10/06/2020 DEPRESSION SCREENING 10/17/2024 INFLUENZA VACCINE (Season Ended) 2025 08/10/2020 Respiratory Syncytial Virus (RSV) Vaccine Pt: or [...] complete this topic MENINGOCOCCAL (Group B) VACCINE SHARED DECISION-MAKING Aged Out No longer eligible based on patient's age to complete this topic MENINGOCOCCAL GROUPS A/C/Y/W VACCINE Aged Out No longer eligible b ased on patient's age to complete this topic Care Teams Recording Studio Intern Relationship Specialty Start Date End Date Dmitry North DO [address] [facility] [address] [place] [address] PCP - General Internal Medicine 05/18/23 Fortunato Damon MD Neurological Surgery 07/17/12 Vita Beth MD [address] [place] [address] Family Medicine 07/17/12
--- OUTSIDE RECORDS SUMMARY | 2025-01-21 00:45 | XMS_ITS | Referral Summary ---
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
--- OUTSIDE RECORDS SUMMARY | 2025-01-21 00:45 | XMS_ITS | Clinical Summary ---
Author Organization [facility] Address [address] [place] [address] Phone Care Team Providers Care Night Nurse Name Role Phone Dmitry North Edelmira THAKUR [...] 12:20 AM CDT Height 166.4 cm (5' 5.5) 08/01/2021 12:20 AM CD T Body Mass Index 24.58 08/01/2021 12:20 AM CDT Plan of Treatment Health Maintenance Due Date Last Done Comments Hepatitis C Virus (HCV) Screening 1965 TdaP Immunization 1965 Colonoscopy 2008 Colorectal Cancer Screening 2008 Cologuard 2013 Immunochemical Fecal Occult Blood 2013 Pneumococcal Immunization (5 0+ years) (1 of 1 - PCV) 2013 Zoster Immunization (1 of 2) 2013 Influenza Immunization (#1) 2024 SARS-COV-2 Immunization ( season) 2024 09/29/2021, 10/28/2020, 10/06/2020 Respiratory Syncytial [...] to complete this topic Insurance Care Teams Night Nurse Relationship Specialty Start Date End Date Dmitry North DO [address] [facility] [address] [place] [address] PCP - General Internal Medicine 08/01/21
--- OUTSIDE RECORDS SUMMARY | 2025-01-21 00:45 | XMS_ITS | Continuity of Care Document ---
Author Organization [facility] Address [address] [place] [address] Phone Care Team Providers Care Adaptive Physical Education Specialist Name Role Phone Jennifer Swann Unavailable [...] acetonide inj Inject tndn sheath/lgmnt/gangl cyst Office/outpatient visit,[facility] 2017 Kenalog Triamcinolone acetonide inj Inject tndn sheath/lgmnt/gangl cyst Office/outpatient visit,[facility] 2017 Advance Directives Directive Yes / No Effective Date File Name No Information Encounters Encounter Description Practice Location Reason(s) For Visit Diagnoses Date Provider Providers Copied on Encounter Office/outpat ient visit,[facility] [employer] [facility], [address], [id number], tel:[phone] Right thumb (chief complaint) Trigger thumb, right thumb Dinaelizabeth Rodriguez. [address] [facility], [address], [id number], [place]. tel:[phone] Office/outpat ient visit,[facility] [employer] [facility], [address], [id number], [place] tel:[phone] right hand (chief complaint) Trigger thumb, right thumb Abby Ochoa. [address] [facility], [facility] [address], [place], [place], [id number], [place]. tel:[phone] Family History Family Member Type Diagnosis Age At Onset No Information Payers Payer name Insurance type Covered alliance party ID Glynn reese(s) [id number] Social History Type Description Quantity Date Captured [...]
--- NOTE | ~2025-03-18 | XR_ITS ---
EXAMINATION: XR fluoroscopy no charge DATE: 03/18/2025 12:30 CDT INDICATION: DIAG/PROG JHONATHAN C6,C7,T1 MEDIAL BRANCH NERVE BLKS #2 . TECHNIQUE: 11 fluoroscopic images of the cervical spine were obtained during diagnostic/prognostic bi lateral C6, C7, and T1 medial branch nerve blocks, performed by Don Beltre MD. I was not presen t during the procedure. Fluoroscopy exposure time was 54.7 seconds. Air Kerma 4.7514 mGy. COMPARISON: 11/27/2024 FINDINGS/IMPRESSION: Fluoroscopic documentation of diagnostic/prognostic bilateral C6, C7, and T1 medial branch nerve bloc ks. Please refer to the operative note for complete procedural details . Reviewed, dictated and finalized at location K.
--- OUTSIDE RECORDS SUMMARY | 2025-03-18 00:36 | XMS_ITS | Clinical Summary ---
Author Organization [facility] Address [address] [place] [address] Phone Care Team Providers Care Field Hauler Name Role Phone Dmitry North Edelmira THAKUR [...] to complete this topic Insurance Care Teams Field Hauler Relationship Specialty Start Date End Date Dmitry North DO [address] [place] [address] PCP - General Internal Medicine 08/01/21
--- OUTSIDE RECORDS SUMMARY | 2025-03-18 00:36 | XMS_ITS | Encounter Summary ---
Author Organization [facility] Address [address] [place] [address] Phone Care Team Providers Care Personal Finance Instructor Name Role Phone Nigel Cunningham MD Primary Care Provider [phone] John Villatoro Primary Care Provider Yazan Amaya MD Primary Care Provider [phone] Encounter Details Date Type Department Care Team (Latest Contact Info) Description 07/20/2017 Orders Only [facility] CONVERSION Scanning, Provider Social History Tobacco Use Types Packs/Day Years Used Date Smoking Tobacco: Never Comments Unknown Sex and Gender Information Value Date Recorded Sex Assigned at Not on file Legal Sex Female 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
--- OUTSIDE RECORDS SUMMARY | 2025-03-18 00:36 | XMS_ITS | Encounter Summary ---
Author Organization [facility] Address [address] [place] [address] Care Team Providers Care Crew Leader Gluing Name Role Phone Fortunato Damon MD Unavailable [phone] Vita Beth MD Unavailable Dmitry North DO Primary Care Provider [phone] Encounter Details Date Type Department Care Team (Late st Contact Info) Description 11/04/2023 Lab Requisition [facility] - Pathology Lab [address] [place] [id number] Felix Rodriguez MD [address] [place] [address] Illness, unspecified Social History Tobacco Use Types Packs/Day Years Used Date Smoking Tobacco: Never Smokeless Tobacco: Never Alcohol Use Standard Drinks/Week Comments No 0 (1 standard drink = 0.6 oz pur e alcohol) Comments Unknown Sex and Gender Information Value Date Recorded Sex Assigned at Not on file Legal Sex Female 2:10 PM PAYROLL ACCOUNTING CLERK Gender Identity Not on file Sexual Orientation Not on file Occupation Industry Job Start Date Job End Date RN Not on file Not on file Not on file documented as of this encounter Plan of Treatment Not on file documented as of this encounter Procedures Procedure Name Priority Date/Time Associated Diagnosis Comments PATHOLOGY TISSUE Routine 11/04/2023 6:30 AM PAYROLL ACCOUNTING CLERK Illness, unspecified documented in this encounter Results * PATHOLOGY TISSUE (11/04/2023 6:30 AM PAYROLL ACCOUNTING CLERK) Case Report Surgical Pathology Report Case: [id number] Authorizing Provider: Felix Rodriguez MD Collected: 11/04/2023 06:30 AM Ordering Location: [facility] Pathology Lab Received: 11/04/2023 12:11 PM Pathologist: Pablo Rubin MD Specimen: Sinus, Right and Left sinus contents 11/08/2023 12:37 PM [facility] Final Diagnosis Sinus contents, right and left, excision (A): - Chronic sinusitis 11/08/2023 12:37 PM [facility] at [address] PAYROLL ACCOUNTING CLERK Microscopic Description and Comment Microscopic examination substantiates the final diagnosis. 11/08/2023 12:37 PM [facility] Clinical History This is a 58-year-old female with history of chronic sinusitis. Operative procedure: functional endoscopic sinus surgery. 11/08/2023 12:37 PM [facility] Gross Description The requisition and specimen(s) are identified with the patient's name, Debbi Crouch. Received in formalin, specimen A, is a 2.5 x 2.0 x 0.5 cm aggregate of soft red-mauricio tissue admixed with hemorrhagic material. There is no conspicuous mucoid component. A sales representative aircraft sampling is submitted in cassette A1. GW 11/08/2023 12:37 PM [facility] Pathologist Location at [facility] 11/08/2023 12:37 PM [facility] Disclaimer The performance characteristics of all immunohistochemical and indirect immunofluorescence stains (if any) cited in this report were determined by the Histopathology Laboratory of [facility]. Some of these tests [...] the attending (teaching) pathologist. 11/08/2023 12:37 PM PAYROLL ACCOUNTING CLERK [facility] Embedded Images 11/08/2023 12:37 PM PAYROLL ACCOUNTING CLERK [facility] Pathology/Cytolo gy SINUS / Unknown 11/04/2023 6:30 AM PAYROLL ACCOUNTING CLERK 11/04/2023 12:11 PM PAYROLL ACCOUNTING CLERK Felix Rodriguez MD LAB - PATHOLOGY/CYTOLOGY ORD ERABLES Final Result Performing Organization Address City/State/[facility] Co de Phone Number [facility] [address] [id number] [phone] documented in this encounter Visit Diagnoses Diagnosis Illness, unspecified documented in this encounter Care Teams Crew Leader Gluing Relationship Specialty Start Date End Date Dmitry North DO [address] [facility] [address] [place] [address] PCP - General Internal Medicine 05/18/23 Fortunato Damon MD Neurological Surgery 07/17/12 Vita Beth MD [address] [place] [address] Family Medicine 07/17/12 documented as of this encounter
--- OUTSIDE RECORDS SUMMARY | 2025-03-18 00:36 | XMS_ITS | Referral Summary ---
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
--- OUTSIDE RECORDS SUMMARY | 2025-03-18 00:36 | XMS_ITS | Clinical Summary ---
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
--- OUTSIDE RECORDS SUMMARY | 2025-03-18 00:36 | XMS_ITS | Clinical Summary ---
Author Organization [facility] Address [address] [facility] [place] [address] Care Team Providers Care Sox Analyst Name Role Phone Fortunato Damon MD Unavailable [phone] Vita Beth MD Unavailable Dmitry North DO Primary Care Provider [phone] Source Comments [facility],non-owned Affiliates and Associated Physician Practices is amultiple site organization consisting of ambulatory clinics and hospital sitesin [place], [place], [place] and [place]. This disclosure is being madepursuant to the Care Everywhere program and may not contain all information available regarding this patient. Last updated 18.[facility] Allergies Active Allergy Reactions Criticality Noted Date Comments Clarithromycin Rash Medium 01/01/2013 Azithromycin Urticaria 07/17/2012 Medications * Be aware that medications may not be up to date on this document. Alwaysverify current medications with the patient. Phenytoin (DILANTIN PO) Take 300 mg by mouth once daily Active carbidopa-levod opa (SINEMET) 25-100 MG tablet Take 1 (one) tablet by mouth at bedtime Active ALBUTEROL IN Inhale 1 Dose by mouth as needed Active estradiol (VIVELLE-DOT) 0.025 MG/24HR patch Apply 1 (one) patch to skin every 3 days Active fexofenadine (Alena) 180 MG tablet Take 1 (one) tablet by mouth once daily Active fluticasone propionate (Flonase) 50 MCG/ACT nasal spray Rogers 1 (one) spray into each nostril as directed Active Magnesium 200 MG TABS Take 233 mg by mouth once daily Active tiZANidine (Zanaflex) 4 MG tablet Take 1 (one) tablet by mouth as needed 01/19/2023 Active Progesterone 100 MG capsule Take 1 (one) capsule by mouth once daily Active THYROID PO Take 150 mg by mouth once daily Active budesonide-form oterol (Symbicort) 160-4.5 MCG/ACT inhaler Inhale 2 (two) puffs by mouth 2 times daily 07/25/2023 Active Amzeeq 4 % FOAM Apply 1 Dose to affected area as directed 07/29/2023 Active PHENobarbital 64.8 MG tablet Take 1 (one) tablet by mouth at bedtime 12/04/2023 Active Active Problems Problem Noted Date Diagnosed Date Degeneration of cervical intervertebral disc 11/2011 Cervical spondylosis without myelopathy 07/18/20 12 Immunizations Immunization Administration Dates Next Due INFLUENZA VACCINE 08/10/2020 [...] on file Legal Sex Female 2:10 PM JAR CAPPER Gender Identity Not on file Sexual Orientation Not on file Occupation Industry Job Start Date Job End Date RN Not on file Not on file Not on file Last Filed Vital Signs Vital Sign Reading Time Taken Comments Blood Pressure 131/79 06/16/2021 8:39 AM CDT Pulse 89 06/16/2021 8:39 AM CDT Temperature - - Respiratory Rate 18 06/13/2014 9:27 AM CDT Oxygen Saturation - - Inhaled Oxygen Concentration - - Weight 67.6 kg (149 lb) 12/08/2023 2:22 PM JAR CAPPER Height 166.4 cm (5' 5.5) 12/08/2023 2:22 PM JAR CAPPER Body Mass Index 24.42 12/08/2023 2:22 PM JAR CAPPER Plan of Treatment Health Maintenance Due Date [...] yrs (1 - 1-dose 75+ series) 2038 HEPATITIS B VACCINE Aged Out No longe [...] patient's age to complete this topic Insurance [employer] * Guarantor: ALFREDO CROUCH Account Type Relation to Patient Date of Phone Billing Address Personal/Family [id number] [place] [address] Care Teams Sox Analyst Relationship Specialty Start Date End Date Dmitry North DO [address] [facility] [address] [place] [address] PCP - General Internal Medicine 05/18/23 Fortunato Damon MD Neurological Surgery 07/17/12 Vita Beth MD [address] [place] [address] Family Medicine 07/17/12
--- OUTSIDE RECORDS SUMMARY | 2025-03-18 00:36 | XMS_ITS | Continuity of Care Document ---
Author Organization [facility] Address [address] [place] [address] Phone Care Team Providers Care Forest Pathology Teacher Name Role Phone Jennifer Swann Unavailable [...] acetonide inj Inject tndn sheath/lgmnt/gangl cyst Office/outpatient visit,[facility] 2017 Advance Directives Directive Yes / No Effective Date File Name No Information Encounters Encounter Description Practice Location Reason(s) For Visit Diagnoses Date Provider Providers Copied on Encounter Office/outpat ient visit,[facility] [employer] [facility], [address], [id number], tel:[phone] [employer] [facility] Right thumb (chief complaint) Trigger thumb, right thumb Dina Rodriguez. [address] [facility], [address], [id number], [place]. tel:[phone] Office/outpat ient visit,[facility] [employer] [facility], [address], [id number], tel:[phone] [employer] right hand (chief complaint) Trigger thumb, right thumb Abby Ochoa. [address] [facility], [address], [id number], [place]. tel:[phone] Family History Family Member Type Diagnosis Age At Onset No Information Payers Payer name Insurance type Covered alliance party ID Glynn reese[id number] Social History Type Description Quantity Date Captured [...]
--- NOTE | 2025-03-18 11:54 | PM.HPGS ---
History of Present Illness History of Present Illness Consent: Risks, benefits, and alternatives have been discussed and questions answered. Patient agrees to proceed with procedure. Chief complaint: cervicalgia, cervical spondylosis Narrative: Debbi Crouch is a 59 year old female with chronic, recalcitrant and disabling bilateral cervicalgia secondary to degenerative spondylosis with failure to respond to aggressive conservative measures including PT, oral and topical analgesics, opioid and nonopioid analgesics, rest, time and activity/behavioral modification over the past 1-2 years who presents for diagnostic/prognostic medial branch blocks of the bilateral C6, C7, T1 medial branches (#2) addressing the bilateral C6-7 C7-T1 facet joints under fluoroscopic guidance and with contrast control. Review of Systems Review of Systems: Patient denies any new infectious, allergic, cardiopulmonary, neurologic or constitutional symptoms or changes in activity tolerance or exercise capacity including new or progressive SOB/HOWARD, peripheral edema, productive cough, dysuria, nausea/vomiting, diarrhea, weight change, fevers/chills/night sweats, new or progressive neurologic deficit, cognitive or mood changes since last seen, except as documented in the HPI. All systems reviewed & are unremarkable except as noted in HPI and below PMFSH Surgical History Surgical History History of ankle surgery H/O: hysterectomy Family History Family History Mother Hypertension Family history of Alzheimer's disease Patient's mother is Asthma Depression Anxiety Sibling Hypertension Diabetes mellitus Alcoholism Father Family history of chronic obstructive pulmonary disease Patient's father is Asthma Cancer Social History Social History Smoking status: Never smoker Second hand tobacco smoke exposure: No Alcohol intake: never Substance use: unknown Lack of Transportation: No Lack of Food: Never True Current Housing: Decline to Answer Concerned About Future Housing: Decline to Answer Difficulty Paying Gas/Electric Bills: Decline to Answer Difficulty Paying for Meds: Decline to Answer Currently Unemployed: Decline to Answer Education: Decline to Answer Difficulty w/ Childcare or Family Care: Decline to Answer Living arrangements: with family Spiritual care concerns: No Meds Home Medications and Allergies Home Medications ?Medication ?Instructions ?Recorded ?Confirmed ?Type estrogen 2.2 mg BYMOUTH DAILY 12/07/23 01/10/25 History budesonide-formoterol HFA 80 2 puff inhalation Q12H 09/10/24 01/10/25 History mcg-4.5 mcg/actuation aerosol inhaler (Symbicort) phenobarbital 64.8 mg tablet 64.8 mg PO QHS 09/10/24 01/10/25 History phenytoin sodium extended 100 mg 100 mg PO BID 12/19/24 01/10/25 History capsule (Dilantin Kapseal) progesterone micronized 200 mg 200 mg PO QHS 12/19/24 01/10/25 History capsule carbidopa 25 mg-levodopa 100 mg 1 tablet PO QHS #90 tabs 01/07/25 01/10/25 Rx tablet (Sinemet) thyroid (pork) 60 mg tablet 60 mg PO DAILY #60 tabs 01/16/25 03/12/25 Rx (Okarche Thyroid) albuterol sulfate 2.5 mg/3 mL 2.5 mg (3 mL) inhalation Q4-6H PRN 01/17/25 03/12/25 Rx (0.083 %) solution for nebulization shortness of breath or wheezing #180 mL Allergies Allergy/AdvReac Type Severity Reaction Status Date / Time clarithromycin Allergy Severe Rash Verified 03/18/25 11:54 azithromycin Allergy Intermediate Rash Verified 03/18/25 11:54 Exam Narrative: The patient's physical exam is essentially unchanged from prior examination on 12/10/24. Specifically, patient demonstrates normal lung capacity, tidal volume and respiratory rate without wheezes, crackles, rales or rubs. Heart rate and rhythm are regular without murmurs, gallops or rubs. No JVD. Pulses 2+ globally without increasing peripheral edema. AAOx3 with no evidence of confusion, intoxication or altered mental state, NC/AT without acute distress or altered consciousness. Speech, cognition, mood, insight and judgment at baseline and within normal limits. Assessment and Plan Assessment and plan (1) Cervical spondylosis: Code(s): M47.812 - Spondylosis without myelopathy or radiculopathy, cervical region Status: Acute Assessment and Plan: proceed as planned with diagnostic/prognostic medial branch blocks of the bilateral C6, C7, T1 medial branches (#2) addressing the bilateral C6-7 C7-T1 facet joints under fluoroscopic guidance and with contrast control. (2) Cervicalgia: Code(s): M54.2 - Cervicalgia Status: Acute (3) Chronic pain: Code(s): G89.29 - Other chronic pain Status: Acute
[2025-03-18 11:55] VITALS: BP 140/87; PULSE 78; TEMP 36.4; O2SAT 100; BMI 25.0
--- NOTE | 2025-03-18 11:57 | WPDHPUPDATE1 ---
History and Physical Update Update Date/Time: 03/18/25 11:57 History and Physical has been reviewed, including an updated exam of the patient. There are NO changes in the patient's condition. Risks, benefits, and alternatives have been discussed and questions answered. Patient agrees to proceed with procedure.
--- NOTE | 2025-03-18 11:58 | P.OP_ITS ---
Procedure Note - Detailed Date of Procedure 03/18/25 Pre-op Diagnosis cervicalgia, cervical spondylosis Post-op Diagnosis Same Procedure Performed Diagnostic Bilateral Cervical Medial Branch Nerve Blocks at C6, C7, T1 Blocking the Bilateral C6-7, C7-T1 facet joints under Fluoroscopic Guidance and with Contrast Control (4 levels blocked). Surgeon Don Beltre MD Electric Brain Wave Equipment Mechanic None. Anesthesia Local Description of Procedure INFORMED CONSENT: Risks, benefits and alternatives to the procedure were discussed in detail with the patient who expressed explicit understanding and consent to proceed. Patient was informed verbally and in written form regarding the risks associated with the procedure including the low risk of serious infection, bleeding/bruising, allergic reaction, nerve or organ injury, paralysis, procedural site pain or discomfort, worsening pain and/or mobility, failure to treat and/or disfigurement. The patient expressed explicit understanding and consent to proceed. All materials required for the procedure were available prior to procedure start. Site and side were marked prior to procedure and confirmed in the presence of the patient. PROCEDURE IN DETAIL: The patient was brought to the procedural suite and placed in the prone position with head stabilized with a ProneView pillow. Patient was made comfortable with use of pillows under the head/chest, hips and ankles. Skin overlying the injection site on the affected side(s) was prepared broadly with ChloraPrep applicator and draped in a sterile manner. Aseptic technique was used throughout. The endplates of the vertebral bodies at the site(s) of interest were aligned in the AP view. Ipsilateral oblique angulation was utilized to optimize visualization of the pars interarticularis at each target site. Local anesthesia was established by infiltration with approximately 5 mL of 0.5% lidocaine via a 1-1/2 inch 27-gauge needle divided over each injection site. A 25-gauge 3.5 inch Quincke spinal needle was advanced until the needle tip contacted the periosteum of the pars interarticularis at the target site, right C6 medial branch. Lateral view was utilized to confirm the appropriate placement of the needle tip just anterior to the center point of the interarticularis. In the Lateral view, 0.25 mL of Omnipaque 300 contrast medium was injected after negative aspiration for CSF, blood or other bodily fluid, showing appropriate extra-articular spread of c ontrast without evidence of intravascular, foraminal or intrathecal placement. A 0.25 mL solution of 2.0% PF Lidocaine was injected after negative repeat aspiration. Appropriate spread of the injectate was confirmed with washout of previously injected contrast. No parasthesias were elicited. Needle was removed completely intact without difficulty. The same exact procedure was repeated for all remaining levels on the ipsilateral side, right C7, T1 medial branches, modified as necessary to accommodate for the new target location with identical findings and results and no evidence of complication. The same exact procedure was repeated for all remaining levels on the contralateral side, left C6, C7, T1 medial branches, modified as necessary to accommodate for the new target location with identical findings and results and no evidence of complication. Images were saved and documented in the patient chart. Patient's skin was cleansed and sterile bandage applied. The patient tolerated the procedure well. The patient was transported to the recovery area in stable condition where they were observed for an appropriate amount of time prior to discharge, without evidence of complication. Patient was instructed on the appropriate completion of a pain diary over the next 12-24 hours. The patient was instructed to avoid excessive activity for the next 48 hours, including climbing and frequent use of stairs. Showers only for 48 hours. They were instructed not to drive or operate heavy machinery for 24 hours. They are to monitor for severe headaches, fevers, chills, night sweats, erythema/swelling at the site or any other signs of infection, bleeding/bruising, bowel or bladder changes as well as new pain, weakness or numbness in the upper or lower extremity. Should they notice these changes, they are instructed to call our office immediately or report directly to the nearest Emergency Department if no answer or if after posted office hours. COMPLICATIONS: None COMMENTS: None CONTRAST WASTED: 28.5mL Omnipaque 300. Complications No immediate complications Condition Stable Disposition Same day [facility] Billing Surgery - Charge Forward: Surgery Billing
[2025-03-18 12:40] VITALS: BP 155/86; PULSE 75; RESP 16; O2SAT 100
[2025-03-18] MEDS: LIDOCAINE 2% LOCAL INJ 20 ML VIAL 5 ML INFILTRATE (12:43)
[2025-03-18] MEDS: LIDOCAINE 1% PF INJ 5 ML VIAL INFILTRATE (12:43)
[2025-03-18 12:45] VITALS: BP 160/91; PULSE 77; RESP 16; O2SAT 100
[2025-03-18 12:50] VITALS: BP 156/88; PULSE 75; RESP 16; O2SAT 98
[2025-03-18 12:57] VITALS: BP 139/83; PULSE 71; RESP 16; O2SAT 99
== END 2025-03-18 13:16 | disposition home or self-care (01) ==
PROVIDERS: PCP Family Medicine; Visit Provider Anesthesiology Pain Medicine
PROC: (CPT 64490; principal; 2025-03-18 12:30)
DX: M47.812 Spondylosis without myelopathy or radiculopathy, cervical region (principal); G89.29 Other chronic pain
CPT/HCPCS: 64490; 64491 ×2; 64492 ×2; 99199; J2003; Q9965

== ENCOUNTER 2025-06-07 11:39 | Outpatient (CLI) | payer OTHER, SELFPAY ==
--- OUTSIDE RECORDS SUMMARY | 2025-06-07 11:46 | XMS_ITS | Encounter Summary ---
Author Organization [facility] Address [address] [place] [address] Care Team Providers Care Drafter Geological Name Role Phone Fortunato Damon MD Unavailable [phone] Vita Beth MD Unavailable Dmitry Notrh DO Primary Care Provider [phone] Encounter Details Date Type Department Care Team (Late st Contact Info) Description 11/04/2023 Lab Requisition [facility] - Pathology Lab [address] [place] [id number] Felix Rodriguez MD [address] [place] [address] Illness, unspecified Social History Tobacco Use Types Packs/Day Years Used Date Smoking Tobacco: Never Smokeless Tobacco: Never Alcohol Use Standard Drinks/Week Comments No 0 (1 standard drink = 0.6 oz pur e alcohol) Comments Unknown Sex and Gender Information Value Date Recorded Sex Assigned at Not on file Legal Sex Female 2:10 PM MEDICAL INSURANCE CLERK Gender Identity Not on file Sexual Orientation Not on file Occupation Industry Job Start Date Job End Date RN Not on file Not on file Not on file documented as of this encounter Plan of Treatment Not on file documented as of this encounter Procedures Procedure Name Priority Date/Time Associated Diagnosis Comments PATHOLOGY TISSUE Routine 11/04/2023 6:30 AM MEDICAL INSURANCE CLERK Illness, unspecified documented in this encounter Results * PATHOLOGY TISSUE (11/04/2023 6:30 AM MEDICAL INSURANCE CLERK) Case Report Surgical Pathology Report Case: [id number] Authorizing Provider: Felix Rodriguez MD Collected: 11/04/2023 06:30 AM Ordering Location: [facility] Pathology Lab Received: 11/04/2023 12:11 PM Pathologist: Pablo Rubin MD Specimen: Sinus, Right and Left sinus contents 11/08/2023 12:37 PM [facility] Final Diagnosis Sinus contents, right and left, excision (A): - Chronic sinusitis 11/08/2023 12:37 PM [facility] PATHOLOGY LAB at 1237 MEDICAL INSURANCE CLERK Microscopic Description and Comment Microscopic examination substantiates the final diagnosis. 11/08/2023 12:37 PM [facility] Clinical History This is a 58-year-old female with history of chronic sinusitis. Operative procedure: functional endoscopic sinus surgery. 11/08/2023 12:37 PM [facility] PATHOLOG[facility] LAB Gross Description The requisition and specimen(s) are identified with the patient's name, Debbi Crouch. Received in formalin, specimen A, is a 2.5 x 2.0 x 0.5 cm aggregate of soft red-mauricio tissue admixed with hemorrhagic material. There is no conspicuous mucoid component. A motor vehicle representative sampling is submitted in cassette A1. GW 11/08/2023 12:37 PM [facility] PATHOLOGY LAB Pathologist Location at [facility] 11/08/2023 12:37 PM [facility] PATHOLOG[facility] LAB Disclaimer The performance characteristics of all immunohistochemical and indirect immunofluorescence stains (if any) cited in this report were determined by the Histopathology Laboratory of [facility]. Some of these tests were developed by [...] the attending (teaching) pathologist. 11/08/2023 12:37 PM MEDICAL INSURANCE CLERK [facility] PATHOLOGY LAB Embedded Images 11/08/2023 12:37 PM MEDICAL INSURANCE CLERK [facility] PATH[facility] LAB Pathology/Cytolo gy SINUS / Unknown 11/04/2023 6:30 AM MEDICAL INSURANCE CLERK 11/04/2023 12:11 PM MEDICAL INSURANCE CLERK Felix Rodriguez MD LAB - PATHOLOGY/CYTOLOGY ORD ERABLES Final Result Performing Organization Address City/State/[facility] Co de Phone Number [facility] PATHOLOG[facility] LAB [address] [id number] [phone] documented in this encounter Visit Diagnoses Diagnosis Illness, unspecified documented in this encounter Care Teams Drafter Geological Relationship Specialty Start Date End Date Dmitry North DO [address] [facility] [address] [place] [address] PCP - General Internal Medicine 05/18/23 Fortunato Damon MD Neurological Surgery 07/17/12 Vita Beth MD [address] [place] [address] Family Medicine 07/17/12 documented as of this encounter
--- OUTSIDE RECORDS SUMMARY | 2025-06-07 11:46 | XMS_ITS | Clinical Summary ---
Author Organization [facility] Address [address] [place] [address] Phone Care Team Providers Care Director Business Development Name Role Phone Dmitry North Edelmira THAKUR [...] Virus (HCV) Screening 1965 TdaP Immunization 1965 Cologuard 2008 Colonoscopy 2008 Colorectal Cancer Screening 2008 Immunochemical Fecal Occult Blood 2008 Pneumococcal Immunization (5 0+ years) (1 of 1 - PCV) 2013 Zoster Immunization (1 of 2) 2013 SARS-COV-2 Immunization (4 - 2023- season) 2024 09/29/2021, 10/28/2020, 10/06/2020 Influenza Immunization (#1) 2025 Respiratory Syncytial Virus (RSV) Immunization (Adult) (1 - 1-dose 75+ series) 2038 Hepatitis B Immunization Aged Out No longer eligible based on patient's age to complete this topic Human Papillomavirus (HPV) Immunization Aged Out No longer eligible b ased on patient's age to complete this topic Meningococcal Immunization (ACWY) Aged Out No longer eligible b ased on patient's age to complete this topic Rotavirus Immunization Aged Out No lo nger eligible based on patient's age to complete this topic Insurance Care Teams Director Business Development Relationship Specialty Start Date End Date Dmitry North DO [address] [place], [place] [id number] PCP - General Internal Medicine 08/01/21
--- OUTSIDE RECORDS SUMMARY | 2025-06-07 11:46 | XMS_ITS | Encounter Summary ---
Author Organization [facility] Address [address] [place] [address] Phone Care Team Providers Care Lean Engineer Name Role Phone Nigel Cunningham MD Primary Care Provider [phone] John Villatoro Primary Care Provider Yazan Amaya MD Primary Care Provider [phone] Encounter Details Date Type Department Care Team (Latest Contact Info) Description 07/20/2017 Orders Only [facility] CONVERSION Scanning, Provider Social History Tobacco Use Types Packs/Day Years Used Date Smoking Tobacco: Never Comments Unknown Sex and Gender Information Value Date Recorded Sex Assigned at Not on file Legal Sex Female 3:41 AM RN TELEPHONIC Gender Identity Female 06/26/2018 1:15 PM CDT [...] on filedocumented in this encounter Care Teams Lean Engineer Relationship Specialty Start Date End Date Nigel Cunningham MD PCP - General 03/07/17 09/01/21 John Villatoro PA [address] [place], [place] [id number] PCP - General Physician Carpet Floor Layer Apprentice 09/02/21 01/30/24 Yazan Amaya MD [address] [facility] [address] [place] [address] PCP - General Family Practice 01/31/24 documented as of this encounter
--- OUTSIDE RECORDS SUMMARY | 2025-06-07 11:46 | XMS_ITS | Clinical Summary ---
Author Organization [facility] Address [address] [place] [address] Care Team Providers Care Corporation Officer Name Role Phone Yazan Amaya MD Primary Care Provider [phone] Allergies Active Allergy Reactions Criticality Noted Date Comments Azithromycin Rash Medium 04/30/2018 Clarithromycin Rash Medium 01/01/2013 Medications carbidopa-levod opa (SINEMET) 25-100 mg per tabletIndicatio ns:Parkinsonism Take 1 tablet by mouth nightly 03/23/20 18 Active cholecalciferol (VITAMIN D-3) 2000 unit capsule [...] Amzeeq 4 % foam 06/23/20 23 Active magnesium gluconate 200 mg tablet Take [...] daily 1 each 5 07/23/20 24 Active budesonide-form oteroL (SYMBICORT) 160-4.5 mcg/actuation inhaler 1-2 puffs 1-2 times/day & 1 puff as needed. Max 12 puffs/day. Rinse mouth with water after use. Do not swallow. 20.4 g 5 10/01/20 24 Active [place] Thyroid 60 mg tablet 05/13/20 25 Active phenytoin ER (DILANTIN) 100 mg ER capsuleIndicati ons:Partial epilepsy with impairment of consciousness, intractable (HCC) Take 2 capsules (200 mg total) by mouth every morning AND 1 capsule (100 mg total) nightly. 270 capsule 3 05/15/20 25 026 Active PHENobarbitaL 64.8 mg tabletIndicatio ns:Partial epilepsy with impairment of consciousness, intractable (HCC) Take 1 tablet (64.8 mg total) by mouth nightly 30 tablet 5 05/15/20 25 Active phenytoin ER (DILANTIN) 100 mg ER capsuleIndicati ons:Partial epilepsy with impairment of consciousness, intractable (HCC) Take 2 capsules (200 mg total) by mouth every morning AND 1 capsule (100 mg total) nightly. 270 capsule 3 05/16/20 24 025 Discontin ued(Reord er) PHENobarbitaL 64.8 mg tabletIndicatio ns:Partial epilepsy with impairment of consciousness, intractable (HCC) Take 1 tablet by mouth nightly 30 tablet 5 11/27/19 25 025 Discontin ued(Reord er) Active Problems Problem Noted Date Diagnosed Date Partial epilepsy with impair ment of consciousness, intractable 04/11/2019 Severe persistent asthma without complication Encounters Date Type Department Care Team Description 05/15/2025 3:30 PM CDT Office Visit [facility] Medicine Epilepsy [address] [place] [address] [place] [address] Antoinette Mcdaniel III, MD Partial epilepsy with impairment of consciousness, intractable (HCC) (Primary Dx) from Last 3 Months Immunizations Immunization Administration [...] Never Smokeless Tobacco: Never Tobacco Cessation:Counseling Given: No Comments No Sex and Gender Information Value Date Recorded Sex Assigned at Not on file Legal Sex Female 3:41 AM PUBLIC ADDRESS SERVICER Gender Identity Female 06/26/2018 1:15 PM CDT Sexual Orientation Not on file Obstetrics History Last Filed Vital Signs Vital Sign Reading Time Taken Comments Blood Pressure 124/79 05/15/2025 2:57 PM CDT Pulse 109 05/15/2025 2:57 PM CDT Temperature 36.1 C (96.9 F) 07/23/2024 12:44 PM CDT Respiratory Rate 18 07/23/2024 12:44 PM CDT Oxygen Saturation 99% 07/23/2024 12:44 PM CDT Inhaled Oxygen Concentration - - Weight 69.4 kg (153 lb) 05/15/2025 2:57 PM CDT Height 165.1 cm (5' 5) 05/15/2025 2:57 PM CDT Body Mass Index 25.46 05/15/2025 2:57 PM CDT Plan of Treatment Health Maintenance Due [...] (3 - season) 06/17/202409/2021, 10/06/2020 Influenza Vaccine (#1) 2025 07/23/2024, 2019 Insurance [facility] [id number] [facility] [id number] [facility] [id number] Care Teams Corporation Officer Relationship Specialty Start Date End Date Yazan Amaya MD PCP - General Family Practice 01/31/24
--- OUTSIDE RECORDS SUMMARY | 2025-06-07 11:47 | XMS_ITS | Clinical Summary ---
Author Organization [facility] Address [address] [facility] [place] [address] Care Team Providers Care Stitch Marker Name Role Phone Fortunato Damon MD Unavailable [phone] Vita Beth MD Unavailable Dmitry North DO Primary Care Provider [phone] Source Comments [facility],non-owned Affiliates and Associated Physician Practices is amultiple site organization consisting of ambulatory clinics and hospital sitesin [place], [place], [place] and [place]. This disclosure is being madepursuant to the Care Everywhere program and may not contain all information available regarding this patient. Last updated 18.[facility] Allergies Active Allergy Reactions Criticality Noted [...] fluticasone propionate (Flonase) 50 MCG/ACT nasal spray Rumsey 1 (one) spray into each nostril as [...] on file Legal Sex Female 2:10 PM DIRECTOR OF VOCATIONAL GUIDANCE Gender Identity Not on file Sexual Orientation [...] 67.6 kg (149 lb) 12/08/2023 2:22 PM DIRECTOR OF VOCATIONAL GUIDANCE Height 166.4 cm (5' 5.5) 12/08/2023 2:22 PM DIRECTOR OF VOCATIONAL GUIDANCE Body Mass Index 24.42 12/08/2023 2:22 PM DIRECTOR OF VOCATIONAL GUIDANCE Plan of Treatment Health Maintenance Due Date Last Done Comments COLOGUARD (AGES 45-75) - COL ON CA SCREENING 1963 COLON MONITORING 1963 COLONOSCOPY - COLON CA SCREENING 1963 CT COLONOGRAPHY - COLON CA SCREENING 1963 Colorectal Cancer Screening 1963 FIT - COLON CA SCREENING 1963 FLEX SIG - COLON CA SCREENING 1963 LIPID TESTING 1963 MAMMOGRAM 1963 HIV SCREENING 1978 HEPATITIS C SCREENING 07/11/1981 DTAP/TDAP/TD VACCINES (1 - Tdap) 1982 PAP SMEAR 1984 ZOSTER VACCINE (1 of 2) 2013 PNEUMOCOCCAL VACCINE 50+ (3 of 3 - PCV20 or PCV21) 01/17/2022 01/17/2017, 01/01/2013 COVID-19 VACCINE (3 - 2023-2 5 season) 2024 10/28/2020, 10/06/2020 DEPRESSION SCREENING 10/17/2024 INFLUENZA VACCINE (#1) 2025 08/10/2020 Respiratory Syncytial Virus (RSV) Vaccine [...] patient's age to complete this topic Insurance [employer] * Guarantor: ALFREDO CROUCH Account Type Relation to Patient Date of Phone Billing Address Personal/Family [id number] [place] [phone] Care Teams Stitch Marker Relationship Specialty Start Date End Date Dmitry North DO [address] [facility] [address] [place] [address] PCP - General Internal Medicine 05/18/23 Fortunato Damon MD Neurological Surgery 07/17/12 Vita Beth MD [address] [place] [address] Family Medicine 07/17/12
== END 2025-06-07 11:40 | disposition home or self-care (01) ==
LOC: ANHSURGERY 11:43
PROVIDERS: Anesthesiology; PCP Family Medicine; Visit Provider Anesthesiology Pain Medicine
DX: R56.9 Unspecified convulsions (principal)
CPT/HCPCS: 36415; 80185

== ENCOUNTER 2025-06-11 01:09 | Day surgery (SDC) | payer OTHER, SELFPAY ==
--- OUTSIDE RECORDS SUMMARY | 2018-06-22 05:20 | XMS_ITS | Continuity of Care Document ---
Author Organization [facility] Address [address] [place] [address] Phone Care Team Providers Care Member Services Coordinator Name Role Phone Jennifer Swann Unavailable Unavailabl e Medications Medication Instructions Dosage Effective Dates (start - stop) Status Comments Dilantin Extended 100 mg capsule - Active phenobarbital 64.8 mg tablet - Active carbidopa 25 mg-levodopa 100 mg tablet - Active fluticasone 50 mcg/actuation nasal spray,suspension - Active Advair HFA 230 mcg-21 mcg/actuation aerosol inhaler - Active prednisone 10 mg tablet - Ac tive prednisone 20 mg tablet - Ac tive albuterol sulfate 2.5 mg/3 mL (0.083 %) solution for nebulization - Active amoxicillin 875 mg tablet - Active oseltamivir 75 mg capsule - Active dexamethasone 10 mg/mL injection solution - Active ciprofloxacin 500 mg tablet - Active permethrin 5 % topical cream - Active ProAir HFA 90 mcg/actuation aerosol inhaler - Active hydrocodone 5 mg-acetaminophen 325 mg tablet - Active SINEMET 10-100 (unknown strength) Not Available - Active Procedures Procedure Date Kenalog Triamcinolone acetonide inj Inject tndn sheath/lgmnt/gangl cyst Office/outpatient visit,[facility] 2017 Kenalog Triamcinolone acetonide inj Inject tndn sheath/lgmnt/gangl cyst Office/outpatient visit,[facility] 2017 Advance Directives Directive Yes / No Effective Date File Name No Information Encounters Encounter Description Practice Location Reason(s) For Visit Diagnoses Date Provider Providers Copied on Encounter Office/outpat ient visit,[facility], [address], [id number], tel:[phone] [employer] [facility] Right thumb (chief complaint) Trigger thumb, right thumb Dina Rodriguez. [address] [facility], [address], [id number], [place]. tel:[phone] Office/outpat ient visit,[facility], [address], [id number], tel:[phone] [employer] right hand (chief complaint) Trigger thumb, right thumb Abby Ochoa. [address] [facility], [address], [id number], [place]. tel:[phone] Family History Family Member Type Diagnosis Age At Onset No Information Payers Payer name Insurance type Covered green party ID [id number] Social History Type Description Quantity Date Captured Comments Alcohol Use Details Unknown Caffeine Use Details Unknown Tobacco Use Status No Information Smoking Status No Information Sex Female Chief Complaint And Reason For Visit From encounter dated '06/22/2018 10:20'. Right thumb (chief complaint). Description: Debbi was last seen in the office nearly 7 months ago on December 07, 2017. At that time she received an injection of lidocaine and Kenalog into the flexortendon sheath of the right thumb for stenosing flexor tenosynovitis. She responded well to the injection, but the pain, stiffness, and clicking returned 4 weeks ago. The stiffness is worse in the morning. Debbi explains that she received a right thumb injection with another orthopedic surgeon before she saw Dr. Mora so she has received a total of 2 prior injections for right trigger thumb. She returns for followup. Reason For Referral Reason For Referral No Information History Of Present Illness Encounter Date Complaint History Of Prese nt Illness Right thumb Debbi was last s een in the office nearly 7 months ago on December 07, 2017. At that time she received an injection of lidocaine and Kenalog into the flexor tendon sheath of the right thumb for stenosing flexor tenosynovitis. She responded well to the injection, but the pain, stiffness, and clicking returned 4 weeks ago. The stiffness is worse in the morning. Debbi explains that she received a right thumb injection with another orthopedic surgeon before she saw Dr. Mora so she has received a total of 2 prior injections for right trigger thumb. She returns for followup. right hand Debbi presents t o the office today on December 07, 2017. She is here because of pain and triggering of the right thumb. Debbi's right thumb symptoms started in May 2017. She was given a cortisone injection by another hand specialist, and the injection helped for a few months. However, the pain and triggering of the right thumb returned about 2 months ago, and the symptoms have been even worse over the past 4 weeks. Debbi presents today for further evaluation and treatment of her right thumb. Functional Status Date Functional Assessmen t No Information Instructions Date Instruction Additional Infor mation No Information Assessments Type Assessment Date assessment Trigger thumb, right thumb Sep-0 impression We discussed treatme nt options including a cortisone injection and surgery. We discussed the risk and benefits of each. We decided to proceed with a cortisone injection. I injected the flexor tendon sheath of the right thumb with lidocaine and Kenalog. If the injection does not provide lasting relief then we will further discuss surgery. She may advance her activities as tolerated. She will return to the office as needed. She may call with any questions or concerns. Patient Care Teams Name Effective Dates (start - stop) Status Members No Information
--- NOTE | 2025-06-07 08:45 | PC.NURSE ---
Report to the Outpatient Waiting Room, entrance under the green pavilion located off [facility], at time _6am on date __06/11/25 . Planned Procedure Time: _7:30 am .? Time changes happen often and if your time is changed the preop area will call you the afternoon before. - You and your visitor will be asked to self-screen and do not enter if you have any COVID symptoms. Please call surgeon if you need to reschedule. - A mask is optional within the hospital at this time. NOTHING TO EAT OR DRINK AFTER MIDNIGHT PER DR PENNY Take only the following medications with a SIP of water on the morning of surgery: _SYMBICORT INHALER, PHENYTOIN, ARMOUR DO NOT STOP ANY OF YOUR OTHER PRESCRIPTION MEDICATIONS PRIOR TO SURGERY EXCEPT THE FOLLOWING Hold all vitamins and supplements for 3 days per anesthesiologist.LAST DOSE 06/07/25 Medications to discontinue per physician ___HOLD ASPIRIN/NSAIDS 7 DAYS PRE OP PER DR TRAN Date to take last dose Please no make-up, nail belarusian, hairspray, perfume, deodorant, or body powder the day of surgery.? No jewelry (including any body piercings) or valuables the day of surgery, leave them at home.? Please take a shower or bath the night before, AND the morning of, surgery with an antibacterial soap.? Wear comfortable, loose fitting clothing.? Children are encouraged to wear pajamas. - Jewelry must be removed prior to entering the operating room.? Rings and piercings that are not removed may be cut off. - The hospital will not accept responsibility for valuables.? - Please leave all valuables, including medications, at home the day of surgery. If you are going home after surgery, a licensed dray driver must drive you home.? - NO public transportation without another adult if you receive anesthesia. - We recommend that an adult stay with you for 24 hours following discharge. - We also recommend that you do not drive, make important decision, drink alcoholic beverages, or take any drugs that were not prescribed by your health care provider for at least 24 hours after your discharge time. For Pediatric surgeries, we recommend two adults accompany the child home. Follow any additional instructions given to you from your surgeon. Telephone instructions given to _PATIENT and asked if any additional questions and then verbalized understanding. Patient advised to call surgeon office or pre surgery nurse liaison [phone] if any additional questions.
[2025-06-07 09:09] VITALS: BMI 24.5
--- NOTE | ~2025-06-11 | XR_ITS ---
XR fluoroscopy no charge Indication: Bilateral C6, C7 and T1 medial branch nerve blocks TECHNIQUE: Fluoroscopy used during Bilateral C6, C7 and T1 medial branch nerve blocks performed by [Don Beltre MD] on 06/11/2025. 1 minute 24 seconds fluoroscopy with 2 fluoroscopic images captured. FINDINGS: Correlate with procedure note. IMPRESSION: Fluoroscopy used during Bilateral C6, C7 and T1 medial branch nerve blocks. Reviewed, dictated and finalized at location O.
--- OUTSIDE RECORDS SUMMARY | 2025-06-11 01:11 | XMS_ITS | Encounter Summary ---
Author Organization [facility] Address [address] [place] [address] Phone Care Team Providers Care Mattress Finisher Name Role Phone Nigel Cunningham MD Primary Care Provider [phone] John Villatoro Primary Care Provider Yazan Amaya MD Primary Care Provider [phone] Encounter Details Date Type Department Care Team (Latest Contact Info) Description 07/20/2017 Orders Only [facility] CONVERSION Scanning, Provider Social History Tobacco Use Types Packs/Day Years Used Date Smoking Tobacco: Never Comments Unknown Sex and Gender Information Value Date Recorded Sex Assigned at Not on file Legal Sex Female 3:41 AM MACHINE II COREMAKER Gender Identity Female 06/26/2018 1:15 PM CDT [...] on filedocumented in this encounter Care Teams Mattress Finisher Relationship Specialty Start Date End Date Nigel Cunningham MD PCP - General 03/07/17 09/01/21 John Villatoro PA [address] [place], [place] [id number] PCP - General Physician Systems Developer 09/02/21 01/30/24 Yazan Amaya MD [address] [facility] [address] [place] [address] PCP - General Family Practice 01/31/24 documented as of this encounter
--- OUTSIDE RECORDS SUMMARY | 2025-06-11 01:11 | XMS_ITS | Clinical Summary ---
Author Organization [facility] Address [address] [place] [address] Phone Care Team Providers Care Director Of Oncology Name Role Phone Dmitry North Edelmira THAKUR [...] complete this topic Insurance Care Teams Director Of Oncology Relationship Specialty Start Date End Date Dmitry North DO [address] [place], [place] [phone] PCP - General Internal Medicine 08/01/21
--- OUTSIDE RECORDS SUMMARY | 2025-06-11 01:11 | XMS_ITS | Encounter Summary ---
Author Organization [facility] Address [address] [place] [address] Care Team Providers Care Transit Clerk Name Role Phone Fortunato Damon MD Unavailable [phone] Vita Beth MD Unavailable Dmitry North DO Primary Care Provider [phone] Encounter Details Date Type Department Care Team (Late st Contact Info) Description 11/04/2023 Lab Requisition [facility] - Pathology Lab [address] [place] [id number] Felix Rodriguez MD [address] [place] [address] Illness, unspecified Social History Tobacco Use Types Packs/Day Years Used Date Smoking Tobacco: Never Smokeless Tobacco: Never Alcohol Use Standard Drinks/Week Comments No 0 (1 standard drink = 0.6 oz pur e alcohol) Comments Unknown Sex and Gender Information Value Date Recorded Sex Assigned at Not on file Legal Sex Female 2:10 PM SUPERINTENDENT CONSTRUCTION Gender Identity Not on file Sexual Orientation Not on file Occupation Industry Job Start Date Job End Date RN Not on file Not on file Not on file documented as of this encounter Plan of Treatment Not on file documented as of this encounter Procedures Procedure Name Priority Date/Time Associated Diagnosis Comments PATHOLOGY TISSUE Routine 11/04/2023 6:30 AM SUPERINTENDENT CONSTRUCTION Illness, unspecified documented in this encounter Results * PATHOLOGY TISSUE (11/04/2023 6:30 AM SUPERINTENDENT CONSTRUCTION) Case Report Surgical Pathology Report Case: [id number] Authorizing Provider: Felix Rodriguez MD Collected: 11/04/2023 06:30 AM Ordering Location: [facility] Pathology Lab Received: 11/04/2023 12:11 PM Pathologist: Pablo Rubin MD Specimen: Sinus, Right and Left sinus contents 11/08/2023 12:37 PM [facility] PATH[facility] Final Diagnosis Sinus contents, right and left, excision (A): - Chronic sinusitis 11/08/2023 12:37 PM [facility] PATHOLOGY LAB at [address] SUPERINTENDENT CONSTRUCTION Microscopic Description and Comment Microscopic examination substantiates the final diagnosis. 11/08/2023 12:37 PM [facility] PATH[facility] Clinical History This is a 58-year-old female with history of chronic sinusitis. Operative procedure: functional endoscopic sinus surgery. 11/08/2023 12:37 PM [facility] PATHOLOG[facility] Gross Description The requisition and specimen(s) are identified with the patient's name, Debbi Crouch. Received in formalin, specimen A, is a 2.5 x 2.0 x 0.5 cm aggregate of soft red-mauricio tissue admixed with hemorrhagic material. There is no conspicuous mucoid component. A small business representative sampling is submitted in cassette A1. GW 11/08/2023 12:37 PM [facility] PATH[facility] Pathologist Location at [facility] 11/08/2023 12:37 PM [facility] PATH[facility] Disclaimer The performance characteristics of all immunohistochemical and indirect immunofluorescence stains (if any) cited in this report were determined by the Histopathology Laboratory of [facility]. Some of these tests were [...] the attending (teaching) pathologist. 11/08/2023 12:37 PM SUPERINTENDENT CONSTRUCTION [facility] Embedded Images 11/08/2023 12:37 PM SUPERINTENDENT CONSTRUCTION [facility] Pathology/Cytolo gy SINUS / Unknown 11/04/2023 6:30 AM SUPERINTENDENT CONSTRUCTION 11/04/2023 12:11 PM SUPERINTENDENT CONSTRUCTION Felix Rodriguez MD LAB - PATHOLOGY/CYTOLOGY ORD ERABLES Final Result Performing Organization Address City/State/[facility] Co de Phone Number [facility] [address] [id number] [phone] documented in this encounter Visit Diagnoses Diagnosis Illness, unspecified documented in this encounter Care Teams Transit Clerk Relationship Specialty Start Date End Date Dmitry North DO [address] [facility] [address] [place] [id number] PCP - General Internal Medicine 05/18/23 Fortunato Damon MD Neurological Surgery 07/17/12 Vita Beth MD [address] [place] [address] Family Medicine 07/17/12 documented as of this encounter
--- OUTSIDE RECORDS SUMMARY | 2025-06-11 01:12 | XMS_ITS | Clinical Summary ---
Author Organization [facility] Address [address] [place] [address] Care Team Providers Care Senior Administrative Services Officer Name Role Phone Yazan Amaya MD Primary Care Provider [phone] Allergies Active Allergy Reactions Criticality Noted Date [...] swallow. 20.4 g 5 10/01/20 24 Active [place] Thyroid 60 mg tablet 05/13/20 25 Active [...] Description 05/15/2025 3:30 PM CDT Office Visit [facility] Medicine Epilepsy [address] [place] [address] [place] [address] Antoinette Mcdaniel III, MD Partial epilepsy with [...] on file Legal Sex Female 3:41 AM LAW SECRETARY Gender Identity Female 06/26/2018 1:15 PM CDT [...] Influenza Vaccine (#1) 2025 07/23/2024, [address] [facility] [id number] [facility] [id number] [facility] [id number] Care Teams Senior Administrative Services Officer Relationship Specialty Start Date End Date Yazan Amaya MD PCP - General Family Practice 01/31/24
--- OUTSIDE RECORDS SUMMARY | 2025-06-11 01:12 | XMS_ITS | Clinical Summary ---
Author Organization [facility] Address [address] [place] [address] Care Team Providers Care Architectural Sales Consultant Name Role Phone Fortunato Damon MD Unavailable [phone] Vita Beth MD Unavailable Dmitry North DO Primary Care Provider [phone] Source Comments [facility],non-owned Affiliates and Associated Physician Practices is amultiple site organization consisting of ambulatory clinics and hospital sitesin [place], [place], [place] and [place]. This disclosure is being madepursuant to the Care Everywhere program and may not contain all information available regarding this patient. Last updated 18.[facility] Allergies Active Allergy Reactions Criticality Noted [...] fluticasone propionate (Flonase) 50 MCG/ACT nasal spray [place] 1 (one) spray into each nostril as [...] on file Legal Sex Female 2:10 PM BOTTOM CRANE OPERATOR Gender Identity Not on file Sexual Orientation [...] 67.6 kg (149 lb) 12/08/2023 2:22 PM BOTTOM CRANE OPERATOR Height 166.4 cm (5' 5.5) 12/08/2023 2:22 PM BOTTOM CRANE OPERATOR Body Mass Index 24.42 12/08/2023 2:22 PM BOTTOM CRANE OPERATOR Plan of Treatment Health Maintenance Due Date [...] patient's age to complete this topic Insurance [employer] * Guarantor: ALFREDO CROUCH Account Type Relation to Patient Date of Phone Billing Address Personal/Family [id number] [place] [id number] Care Teams Architectural Sales Consultant Relationship Specialty Start Date End Date Dmitry North DO [address] [facility] [address] [place] [address] PCP - General Internal Medicine 05/18/23 Fortunato Damon MD Neurological Surgery 07/17/12 Vita Beth MD [address] [place] [address] Family Medicine 07/17/12
[2025-06-11 06:35] VITALS: BP 119/73; PULSE 80; RESP 16; TEMP 36.7; O2SAT 100
--- NOTE | 2025-06-11 06:49 | WPDANESEPPF ---
Anes - Initial Pre Proc Eval Procedure: Operation Date: 06/11/25 07:30 Proposed Procedures p Thermal Radiofrequency Ablation of Bilateral C6, C7, T1 Medial Branches/Dorsal Rami Supplying Bilateral C6-7, C7-T1 Facet Joints Under Fluoroscopic Guidance - Don Beltre MD Date/Time: 06/11/25 06:49 Surgeon: Don Beltre MD Pre Op Diagnosis: cervicalgia, cervical spondylosis Patient Data Age: 59 Gender: F Height: 1.66 m Weight: 68.05 kg Allergies Allergy/AdvReac Type Severity Reaction Status Date / Time clarithromycin Allergy Severe Rash Verified 06/11/25 06:49 azithromycin Allergy Intermediate Rash Verified 06/11/25 06:49 Home Medications ?Medication ?Instructions ?Recorded ?Confirmed ?Type budesonide-formoterol HFA 80 2 puff inhalation Q12H 09/10/24 06/07/25 History mcg-4.5 mcg/actuation aerosol inhaler (Symbicort) phenobarbital 64.8 mg tablet 64.8 mg PO QHS 09/10/24 06/07/25 History phenytoin sodium extended 100 mg 100 mg PO BID 12/19/24 06/11/25 History capsule (Dilantin Kapseal) carbidopa 25 mg-levodopa 100 mg 1 tablet PO QHS #90 tabs 01/07/25 06/07/25 Rx tablet (Sinemet) albuterol sulfate 2.5 mg/3 mL 2.5 mg (3 mL) inhalation Q4-6H PRN 01/17/25 06/07/25 Rx (0.083 %) solution for nebulization shortness of breath or wheezing #180 mL thyroid (pork) 60 mg tablet 60 mg PO DAILY #60 tabs 05/13/25 06/07/25 Rx ([place] Thyroid) thyroid (pork) 30 mg tablet 30 mg PO .COMPLEX #90 tabs 05/26/25 06/07/25 Rx ([place] Thyroid) estradiol 0.01% (0.1 mg/gram) 1 g vaginal DAILY #42.5 grams 05/31/25 06/07/25 Rx vaginal cream fexofenadine 180 mg tablet 180 mg PO DAILY 06/07/25 06/07/25 History (Alena Allergy) multivitamin (Daily Value tablet) 1 tablet PO DAILY 06/07/25 06/07/25 History [facility] 06/07/25 06/07/25 History Patient hx anesthesia problems: none Family hx anesthesia problems: none Results Review: All pre-operative results and documents have been reviewed as part of the pre-operative evaluation. [facility] Surgical History Surgical History History of ankle surgery H/O: hysterectomy Family History Family History Mother Hypertension Family history of Alzheimer's disease Patient's mother is Asthma Depression Anxiety Sibling Hypertension Diabetes mellitus Alcoholism Father Family history of chronic obstructive pulmonary disease Patient's father is Asthma Cancer Social History Social History Smoking status: Never smoker Second hand tobacco smoke exposure: No Alcohol intake: never Substance use: unknown Lack of Transportation: No Lack of Food: Never True Current Housing: Decline to Answer Concerned About Future Housing: Decline to Answer Difficulty Paying Gas/Electric Bills: Decline to Answer Difficulty Paying for Meds: Decline to Answer Currently Unemployed: Decline to Answer Education: Decline to Answer Difficulty w/ Childcare or Family Care: Decline to Answer Living arrangements: with family Spiritual care concerns: No Anes - Eval Final PreProcedure Day of Procedure 06/11/25 06:49 Patient weight: normal Heart: regular rate and rhythm Lungs: clear to auscultation and normal air movement Airway: Mallampati scale class II Neurological: alert and oriented Last oral intake: >/= 8 hours ASA classification: III Emergent: no Anesthetic plan: proceed Anesthesia type and monitoring: monitored anesthesia care and standard monitoring Results Review: All pre-operative results and documents have been reviewed as part of the pre-operative evaluation. Informed Consent: The patient's anesthetic plan and its attendant risks and benefits were discussed with the patient/family/POA. Questions were solicited and answers provided to the satisfaction of the patient/family/POA.
--- NOTE | 2025-06-11 07:16 | PM.HPGS ---
History of Present Illness History of Present Illness Consent: Risks, benefits, and alternatives have been discussed and questions answered. Patient agrees to proceed with procedure. Chief complaint: cervicalgia, cervical spondylosis Narrative: Debbi Crouch is a 59 year old female with chronic, recalcitrant and disabling bilateral cervicothoracic pain secondary to degenerative spondylosis with failure to respond to aggressive conservative measures including PT, oral and topical analgesics, opioid and nonopioid analgesics, rest, time and activity/behavioral modification over the past 1-2 years who presents for thermal radiofrequency ablation of the bilateral C6, C7, T1 medial branches addressing the bilateral C6-7, C7-T1 facet joints under fluoroscopic guidance and with contrast control. Review of Systems Review of Systems: All systems reviewed & are unremarkable except as noted in HPI and below PMFSH Surgical History Surgical History History of ankle surgery H/O: hysterectomy Family History Family History Mother Hypertension Family history of Alzheimer's disease Patient's mother is Asthma Depression Anxiety Sibling Hypertension Diabetes mellitus Alcoholism Father Family history of chronic obstructive pulmonary disease Patient's father is Asthma Cancer Social History Social History Smoking status: Never smoker Second hand tobacco smoke exposure: No Alcohol intake: never Substance use: unknown Lack of Transportation: No Lack of Food: Never True Current Housing: Decline to Answer Concerned About Future Housing: Decline to Answer Difficulty Paying Gas/Electric Bills: Decline to Answer Difficulty Paying for Meds: Decline to Answer Currently Unemployed: Decline to Answer Education: Decline to Answer Difficulty w/ Childcare or Family Care: Decline to Answer Living arrangements: with family Spiritual care concerns: No Meds Home Medications and Allergies Home Medications ?Medication ?Instructions ?Recorded ?Confirmed ?Type budesonide-formoterol HFA 80 2 puff inhalation Q12H 09/10/24 06/07/25 History mcg-4.5 mcg/actuation aerosol inhaler (Symbicort) phenobarbital 64.8 mg tablet 64.8 mg PO QHS 09/10/24 06/07/25 History phenytoin sodium extended 100 mg 100 mg PO BID 12/19/24 06/11/25 History capsule (Dilantin Kapseal) carbidopa 25 mg-levodopa 100 mg 1 tablet PO QHS #90 tabs 01/07/25 06/07/25 Rx tablet (Sinemet) albuterol sulfate 2.5 mg/3 mL 2.5 mg (3 mL) inhalation Q4-6H PRN 01/17/25 06/07/25 Rx (0.083 %) solution for nebulization shortness of breath or wheezing #180 mL thyroid (pork) 60 mg tablet 60 mg PO DAILY #60 tabs 05/13/25 06/07/25 Rx ([place] Thyroid) thyroid (pork) 30 mg tablet 30 mg PO .COMPLEX #90 tabs 05/26/25 06/07/25 Rx ([place] Thyroid) estradiol 0.01% (0.1 mg/gram) 1 g vaginal DAILY #42.5 grams 05/31/25 06/07/25 Rx vaginal cream fexofenadine 180 mg tablet 180 mg PO DAILY 06/07/25 06/07/25 History (Alena Allergy) multivitamin (Daily Value tablet) 1 tablet PO DAILY 06/07/25 06/07/25 History progesterone 200 mg [facility] 06/07/25 06/07/25 History Allergies Allergy/AdvReac Type Severity Reaction Status Date / Time clarithromycin Allergy Severe Rash Verified 06/11/25 06:49 azithromycin Allergy Intermediate Rash Verified 06/11/25 06:49 Vital Signs Vital Signs - 24 hr 06/11/25 06:35 Temperature 98.0 F Pulse Rate 80 Respiratory Rate 16 Blood Pressure 119/73 Pulse Oximetry 100 Oxygen Delivery Room Air Exam Narrative: The patient's physical exam is essentially unchanged from prior examination on 03/28/25. Specifically, patient demonstrates normal lung capacity, tidal volume and respiratory rate without wheezes, crackles, rales or rubs. Heart rate and rhythm are regular without murmurs, gallops or rubs. No JVD. Pulses 2+ globally without increasing peripheral edema. AAOx3 with no evidence of confusion, intoxication or altered mental state, NC/AT without acute distress or altered consciousness. Speech, cognition, mood, insight and judgment at baseline and within normal limits. Assessment and Plan Assessment and plan (1) Cervical spondylosis: Code(s): M47.812 - Spondylosis without myelopathy or radiculopathy, cervical region Status: Acute Assessment and Plan: proceed as planned with thermal radiofrequency ablation of the bilateral C6, C7, T1 medial branches addressing the bilateral C6-7, C7-T1 facet joints under fluoroscopic guidance and with contrast control. (2) Cervicalgia: Code(s): M54.2 - Cervicalgia Status: Acute (3) Chronic pain: Code(s): G89.29 - Other chronic pain Status: Acute
--- NOTE | 2025-06-11 07:19 | WPDHPUPDATE1 ---
History and Physical Update Update Date/Time: 06/11/25 07:19 History and Physical has been reviewed, including an updated exam of the patient. There are NO changes in the patient's condition. Risks, benefits, and alternatives have been discussed and questions answered. Patient agrees to proceed with procedure.
--- NOTE | 2025-06-11 07:20 | W.PM.PROC2 ---
Procedure Note - Detailed Date of Procedure 06/11/25 Pre-op Diagnosis cervicalgia, cervical spondylosis Post-op Diagnosis Same Procedure Performed Thermal Radiofrequency Ablation of the Bilateral Cervical Medial Branches at C6, C7, T1 to ablate the Bilateral C6-7, C7-T1 facet joints under Fluoroscopic Guidance (4 levels treated). Surgeon Don Beltre MD Internet Media Planner None. Anesthesia Local (w/ IV Moderate Sedation) Description of Procedure INFORMED CONSENT: Risks, benefits and alternatives to the procedure were discussed in detail with the patient who expressed explicit understanding and consent to proceed. Patient was informed verbally and in written form regarding the risks associated with the procedure including the low risk of serious infection, bleeding/bruising, allergic reaction, nerve or organ injury, paralysis, procedural site pain or discomfort, worsening pain and/or mobility, failure to treat and/or disfigurement. The patient expressed explicit understanding and consent to proceed. All materials required for the procedure were available prior to procedure start. Site and side was marked prior to procedure and confirmed in the presence of the patient. PROCEDURE IN DETAIL: The patient was brought to the procedural suite and placed in the prone position with head stabilized with a horseshoe pillow and cervical ramp. Patient was made comfortable with use of pillows under the head/chest, hips and ankles. Skin overlying the injection site on the affected side(s) was prepared broadly with 10mL tinted ChloraPrep applicator and draped in a sterile manner. Strict aseptic technique was utilized throughout. The endplates of the vertebral bodies at the site(s) of interest were aligned in the AP view. Ipsilateral oblique angulation was utilized to optimize visualization of the pars interarticularis at each target site. Local anesthesia was established by infiltration with approximately 5 mL of 1% lidocaine via a 1-1/2 inch 27-gauge needle. An 18-gauge 100mm RF needle with curved 10mm active tip was advanced in the AP view until the needle tip contacted the periosteum of the pars interarticularis at the target site, right C6 parallel to the course of the targeted peripheral nerve branch. Lateral view was utilized to adjust and confirm the appropriate placement of the needle tip just anterior to the center point of the interarticularis, bisecting the distance between adjacent joint spaces. The appropriately-sized RF cannula was inserted into the RF needle and motor stimulation performed with no subjective or objective evidence of recruited muscle activity with stimulation up to 2.0 volts at a frequency of 2Hz. A 1.5 mL solution of 2.0% PF lidocaine was injected via the appropriately positioned RF cannula after negative aspiration. The grounding electrode was confirmed to be in place with good contact and functioning appropriately. After a 90s pause, lesioning was performed to 90 degrees centigrade for 90s ensuring lack of symptoms in the extremity throughout. Needle was withdrawn approximately 1-2 mm and rotated 180 degrees at each level. Lesioning was then repeated in a similar manner as above. The patient tolerated this well. No parasthesias were elicited. Needle was removed completely intact without difficulty. The same procedure was then repeated for all intended levels/ structures on the ipsilateral side, right C7, T1, with identical methodology, modified to compensate for new location, with similar results and no evidence of complication. The same procedure was then repeated for all intended levels/ structures on the contralateral side, left C6, C7, T1, with identical methodology, modified to compensate for new contralateral location/approach, with similar results and no evidence of complication. Images were saved and documented in the patient's chart. The patient's skin was cleaned and sterile bandages applied. The patient tolerated the procedure well. The patient was transported to the recovery area in stable condition where they were observed for an appropriate amount of time prior to discharge, without evidence of complication. The patient was instructed to avoid excessive activity for the next 48 hours, including overhead work, reaching and device/computer usage. Showers only for 48 hours. They were instructed not to drive or operate heavy machinery for 24 hours. They are to monitor for severe headaches, fevers, chills, night sweats, erythema/swelling at the site or any other signs of infection, bleeding/bruising, bowel or bladder changes as well as new pain, weakness or numbness in the upper or lower extremity. Should they notice these changes, they are instructed to call our office immediately or report directly to the nearest Emergency Department if no answer or if after posted office hours. Complications None Condition Stable Disposition PACU [facility] Billing Surgery - Charge Forward: Surgery Billing
[2025-06-11] MEDS: LIDOCAINE 2% PF LOCAL INJ 5 ML VIAL 10 ML INFILTRATE (07:48)
[2025-06-11 08:06] VITALS: BP 133/74; PULSE 81; RESP 14; O2SAT 100
[2025-06-11] MEDS: LACTATED RINGERS 1,000 ML 30 ML IV CONT (08:06)
[2025-06-11 08:30] VITALS: BP 152/83; PULSE 66; RESP 16; O2SAT 98
[2025-06-11] MEDS: oxyCODONE HCL (*CRX) 5 MG TAB IR PO (08:45)
[2025-06-11 09:00] VITALS: BP 136/76; PULSE 68; RESP 16
[2025-06-11 09:20] VITALS: BP 145/79; PULSE 65; RESP 14
== END 2025-06-11 09:33 | disposition home or self-care (01) ==
PROVIDERS: PCP Family Medicine; Visit Provider Anesthesiology Pain Medicine
PROC: (CPT 64633; principal; 2025-06-11 07:30)
DX: M47.812 Spondylosis without myelopathy or radiculopathy, cervical region (principal); G89.29 Other chronic pain; Z98.890 Other specified postprocedural states; Z79.51 Long term (current) use of inhaled steroids; Z80.9 Family history of malignant neoplasm, unspecified
CPT/HCPCS: 64633; 64634 ×3; 99199; A9270; J2003; J2250; J2704; J3010; J7120

== ENCOUNTER 2025-09-05 08:28 | Outpatient (CLI) | payer OTHER, SELFPAY ==
--- NOTE | ~2025-09-05 | XR_ITS ---
EXAMINATION: XR lumbar spine 2-3V DATE: 09/05/2025 08:56 INDICATION: Left-sided low back pain TECHNIQUE: Anteroposterior and lateral views of the lumbar spine, and cone-down lateral view of the lumbosacral junction were obtained. COMPARISON: 02/13/2019 FINDINGS: Unchanged mild straightening of the normal lumbar lordosis with no spondylolisthesis. Vertebral body heights are normal. Moderate disc height loss at T10-T11 and mild disc height loss at T11-T12 through L1-L2 and at L3-L4 and L4-L5. Mild to moderate lumbar facet osteoarthritis and mild osteoarthritis at the bilateral sacroiliac joints. Phleboliths in the pelvis. IMPRESSION: 1. Interval progression of still mild lumbar spondylosis. Reviewed, dictated and finalized at location A. IRON INSPECTOR
--- NOTE | ~2025-09-05 | XR_ITS ---
EXAMINATION: XR hip BI 2V w AP pelvis, 09/05/2025 8:50 ASSEMBLY ROOM SUPERVISOR HISTORY: M25.551 - Pain in right hip COMPARISON: No comparisons available. Findings: No acute fracture or malalignment. No significant degenerative changes. Soft tissues unremarkable. Impression: No acute fracture or malalignment. Reviewed, dictated and finalized at location P. MBLY ROOM SUPERVISOR Impression: No acute fracture or malalignment.
== END 2025-09-05 08:29 | disposition home or self-care (01) ==
PROVIDERS: PCP Family Medicine; Visit Provider Nurse Practitioner Family
DX: M47.816 Spondylosis without myelopathy or radiculopathy, lumbar region (principal); M25.551 Pain in right hip
CPT/HCPCS: 72100; 73521